=== PATIENT | male | born 1935 | race Caucasian/White ===

== ENCOUNTER → 2017-04-25 | Outpatient (CLI) | payer OTHER | LOC: FIMAGING 10:33 | PROVIDERS: ATTEND Physician Assistant | DX: M51.36 Other intervertebral disc degeneration, lumbar region (principal); M41.9 Scoliosis, unspecified ==

== ENCOUNTER 2017-06-12 20:36 | Emergency (ER) | payer OTHER ==
[2017-06-12] MEDS ORDERED: fentaNYL 100 MCG/2 ML INJ IVP ONE ×2 (21:24→21:44)
[2017-06-12 21:44] LABS: % IMMATURE GRANULYOCYTES 0.8 % (0.0-1.1); ABSOLUTE IMMATURE GRANULOCYTES 0.06 10^3/uL (0.00-0.10); ADD DIFF? NO; ADD MORPH? NO; ADD SCAN? NO; ATYPICAL LYMPHOCYTE FLAG 10 (0-99); FRAGMENT RBC FLAG 0 (0-99); HEMATOCRIT 36.7 % (40.0-51.0); HEMOGLOBIN 11.8 g/dL (13.7-17.5); LEFT SHIFT FLG 0 (0-99); LIPEMIA HEMOLYSIS FLAG 80 (0-99); MEAN CELL HEMOGLOBIN 29.6 pg (27.9-34.1); MEAN CELL HEMOGLOBIN CONCENTR. 32.2 g/dL (32.4-36.7); MEAN PLATELET VOLUME 9.9 fL (8.7-11.7); PLATELET CLUMPS FLAG 0 (0-99); PLATELET COUNT 202 10^3/uL (150-400); RED BLOOD CELL COUNT 3.99 10^6/uL (4.40-6.38); RED CELL DISTRIBUTION WIDTH 14.5 % (11.5-15.2)
[2017-06-12 22:03] LABS: ANION GAP 9 mEq/L (8-16); CALCIUM 9.4 mg/dL (8.5-10.4); CARBON DIOXIDE 29 mEq/l (22-31); CHLORIDE 100 mEq/L (97-110); CREATININE 1.4 mg/dL (0.7-1.3); GLOMERULAR FILTRATION RATE 49; GLUCOSE 85 mg/dL (70-100); POTASSIUM 4.3 mEq/L (3.5-5.2); SODIUM 138 mEq/L (134-144)
--- NOTE | 2017-06-13 01:37 | EDPHY ---
H & P Stated Complaint: sudden onset of right LQ pain into groin Time Seen by Provider: 06/12/17 21:19 HPI/ROS: Chief complaint: Right groin pain History of present illness: This is an 81-year-old male who presents to the emergency department for evaluation of right groin pain. Reports the onset of pain this afternoon. Pain has been persistent. He denies precipitating factors. He denies alleviating factors. He denies other associated signs or symptoms including no fevers or chills, no nausea, vomiting or diarrhea, no urinary symptoms, no pain in his testicle. Patient has been told he has an inguinal hernia previously and is concerned this is the cause of the pain. Review of systems: A 10 point review of systems was obtained and other than described above was negative - Personal History Current Tetanus Diphtheria and Acellular Pertussis (TDAP): Unsure - Medical/Surgical History Hx Asthma: Yes Hx Chronic Respiratory Disease: Yes Hx Diabetes: No Hx Cardiac Disease: No Hx Renal Disease: No Hx Cirrhosis: No Hx Alcoholism: No Hx HIV/AIDS: No Hx Splenectomy or Spleen Trauma: No Other PMH: appendectomy, tonsil adnoidectomy,. copd, sciatic nerve pain, ulcerated scrotum, dementia - Social History Smoking Status: Former smoker - Physical Exam Exam: General Appearance: Alert, nontoxic. Eyes: Pupils equal and round no pallor or injection. ENT, Mouth: Mucous membranes moist. Respiratory: There are no retractions, lungs are clear to auscultation. Cardiovascular: Regular rate and rhythm. Gastrointestinal: Abdomen is soft and non tender, no masses, bowel sounds normal. Genitourinary: No urethral discharge. Shaft of the penis unremarkable. Sodium unremarkable. Single testicle noted as patient reports having the other 1 surgically removed. The testicle and surrounding cord structures are nontender non edematous. Neurological: Alert and oriented x4. Strength and sensation intact and symmetrical. Skin: Warm and dry, no rashes. Musculoskeletal: Neck is supple non tender. Extremities are symmetrical, full range of motion. Psychiatric: Patient is oriented X 3, there is no agitation. Constitutional: Initial Vital Signs Temperature (C) 36.7 C 06/12/17 20:43 Heart Rate 87 06/12/17 20:43 Respiratory Rate 22 H 06/12/17 20:43 Blood Pressure 120/73 06/12/17 20:43 O2 Sat (%) 92 06/12/17 20:43 O2 Delivery Mode Nasal Cannula O2 (L/minute) 3 Allergies/Adverse Reactions: lorazepam [From Ativan] Allergy (Mild, Verified 08/16/12 16:39) confusion, restless leg Home Medications: Medication Instructions Recorded Acetaminophen [Tylenol 325mg (*)] 325 mg PO Q6 PRN 05/19/17 Albuterol [Proventil Inhaler HFA 1 - 2 puffs IH Q4H PRN 05/19/17 (*)] Calcium Carbonate [Oyster Shell 1,000 mg PO HS 05/19/17 Calcium 500 mg (*)] Cyanocobalamin [Vitamin B12 (*)] 1,000 mcg PO DAILY 05/19/17 Donepezil HCl [Aricept 5 MG (*)] 5 mg PO HS 05/19/17 Fluticasone Nasal [Flonase Nasal 1 sprays NASAL DAILY PRN 05/19/17 [place] (RX)] Fluticasone/Salmeter 500/50Mcg 1 puffs IH BID 05/19/17 [Advair 500/50 (*)] Gabapentin [Neurontin 300 MG (*)] 300 mg PO BID 05/19/17 Herbals/Supplements -Info Only 1 ea PO DAILY 05/19/17 Ipratropium 0.03% Nasal [Atrovent 2 sprays EACHNARE TID PRN 05/19/17 0.03% Nasal (*)] Lansoprazole [Lansoprazole 15 mg] 15 mg PO DAILY 05/19/17 Levalbuterol 1.25 mg [Xopenex 1.25 mg IH TID 05/19/17 1.25MG Neb (*)] Loratadine [Claritin] 10 mg PO DAILY PRN 05/19/17 Memantine HCl [Namenda 10 mg] 10 mg PO BID 05/19/17 Multivitamins [Multivitamin (*)] 1 each PO HS 05/19/17 Pramipexole Di-HCl [Mirapex 1 mg 1 mg PO HS 05/19/17 (*)] Simvastatin [Zocor] 20 mg PO HS 05/19/17 Sodium Cl Nasal Gel [[place] Saline 1 reg TP HS 05/19/17 Nasal Gel] Tamsulosin HCl [Flomax 0.4 MG (*)] 0.4 mg PO HS 05/19/17 Theophylline Anhydrous 400 mg PO DAILY@12 05/19/17 [Theophylline] Tiotropium Inhaler [Spiriva 1 inh IH DAILY 05/19/17 Inhaler] celeCOXIB [CeleBREX] 100 mg PO BID 05/19/17 predniSONE 12.5 mg PO DAILY 05/19/17 Medical Decision Making - Diagnostics Imaging: Discussed imaging studies w/ manufacture specialist Radiologist ED Course/Re-evaluation: Patient discussed with my secondary supervising physician Dr. Aryan Lopez. Patient presents to the emergency department for groin pain. He is nontoxic. Physical exam is benign. Blood studies unremarkable. Urinalysis unremarkable. CT scan does show a fat containing hernia which could be the cause of his symptoms. I have offered ultrasound of his testicle to ensure this is not the cause of his problem and he has declined. The patient's pain is controlled. He is requesting to be discharged home. Home care is discussed. He is asked to follow up with surgery for recheck. Strict return precautions are given. Patient voiced understanding and agreement with plan. Differential Diagnosis: Included but not limited to hernia, incarcerated hernia, strangulated hernia, appendicitis, colitis, mesenteric or bowel ischemia, testicular torsion, testicular infection or urinary tract infection, nephrolithiasis - Data Points Laboratory Results: Laboratory Results 06/12/17 21:32 06/12/17 21:32 Medications Given: Discontinued Medications Hydrocodone Bitart/Acetaminophen ([place] 5/325mg Prepack#6) 1 btl TAKEHOME EDNOW ONE Stop: 06/13/17 01:51 Last Admin: 06/13/17 01:53 Dose: 1 btl Fentanyl (Sublimaze) 75 mcg IVP EDNOW ONE Stop: 06/12/17 21:25 Last Admin: 06/12/17 21:31 Dose: 75 mcg Fentanyl (Sublimaze) 100 mcg IVP EDNOW ONE Stop: 06/12/17 21:45 Last Admin: 06/12/17 21:48 Dose: 100 mcg Departure - Departure Disposition: Home, Routine, Self-Care Clinical Impression: Hernia Condition: Good Instructions: Hydrocodone/Acetaminophen (By mouth), Inguinal Hernia (ED) Additional Instructions: Follow-up with General surgery for further evaluation and care If symptoms worsen or new symptoms develop return to the emergency room for recheck Referrals: Robbie Marie MD [Primary Care Provider] - As per Instructions Ag Antonio MD [Medical Doctor] - As per Instructions
[2017-06-13] MEDS ORDERED: HYDROCOD/APAP 5/325 PREPACK#6 BTL TAKEHOME ONE (01:50)
[2017-06-13 02:03] VITALS: BP 141/80; PULSE 63; RESP 14; TEMP 97.7; O2SAT 98
[2017-06-13 02:13] LABS: COLOR YELLOW; LEUKOCYTE ESTERASE,URINE NEGATIVE (NEGATIVE); NITRITE,URINE NEGATIVE (NEGATIVE)
[2017-06-13 02:14] LABS: MUCUS TRACE /lpf (NONE-1+)
== END 2017-06-13 01:57 | disposition home or self-care (01) ==
DX: K46.9 Unspecified abdominal hernia without obstruction or gangrene (principal); J45.909 Unspecified asthma, uncomplicated; Z87.891 Personal history of nicotine dependence
CPT/HCPCS: 74176; 96374; 99285; J3010

== ENCOUNTER 2017-06-14 10:41 | Inpatient (IN) | payer OTHER ==
[2017-06-14] MEDS ORDERED: ACETAMINOPHEN 325 MG TAB PO ONE (11:22)
[2017-06-14] MEDS ORDERED: HYDROmorphONE/DILAUDID 1 MG/ML INJ IVP ONE ×2 (11:22→12:43)
--- NOTE | 2017-06-14 11:24 | EDPHY ---
H & P Time Seen by Provider: 06/14/17 11:08 HPI/ROS: CHIEF COMPLAINT: Back and right leg pain HISTORY OF PRESENT ILLNESS: Patient is a history of sciatica and is scheduled to have surgery with Dr. Mau Phillips on July 01. He was here 2 days ago for right groin pain thought to be related to a fat hernia. He presents today with symptoms which are severe since yesterday evening. Pain is located in his back and radiates down his right leg. It is not associated with incontinence or weakness or numbness in extremities. He is virtually unable to walk and is very unsteady when he gets on his feet. Family feels he is definitely not safe on walking because of his pain. No recent injury. REVIEW OF SYSTEMS: Eye: no change in vision ENT: no sore throat Cardiac: no chest pain or syncope Pulmonary: no cough or SOB Abdomen: no vomiting, diarrhea, abdominal pain Musculoskeletal: HPI Skin: no rash Neuro: no headache Constitutional: no fever : no urinary symptoms A comprehensive 10 point review of systems is otherwise negative aside from elements mentioned in the history of present illness. PAST MEDICAL HISTORY: Includes oxygen-dependent COPD, sciatica, appendectomy and tonsillectomy Social history: Here with daughter and . Temperature 36.8degrees General Appearance: Alert and conversant, cooperative. Eyes: No scleral icterus. ENT, Mouth: Normal mucous membranes. Respiratory: Normal respiratory effort, breath sounds equal, lungs are clear to auscultation. Cardiovascular: Regular rate and rhythm. Gastrointestinal: Abdomen is soft and non tender. Neurological: Alert and oriented x3. Normally conversant. Face symmetric, normal movement and sensation in all extremities. Straight leg raising is negative bilaterally. He does not have clonus. Patellar reflexes are present bilaterally. Skin: Warm and dry, no rashes. Musculoskeletal: No peripheral edema and no joint swelling. Psychiatric: Not agitated. Emergency Department course/MDM: Dilaudid 0.5 and Tylenol 650 orally. 1123: Dr. Phillips from neurosurgery, will consult. In ED at 1140. 1126: [facility]ary for [facility]. Patient will need admission for pain control as he is unstable on his feet and very high fall risk. Plan per Dr. Phillips is repeat MRI, possible surgical intervention before discharge. Smoking Status: Former smoker Constitutional: Initial Vital Signs Heart Rate 95 06/14/17 10:44 Respiratory Rate 22 H 06/14/17 10:44 Blood Pressure 152/80 H 06/14/17 10:44 O2 Sat (%) 93 06/14/17 10:44 O2 Delivery Mode Room Air Allergies/Adverse Reactions: lorazepam [From Ativan] Allergy (Mild, Verified 06/14/17 10:43) confusion, restless leg Home Medications: Medication Instructions Recorded Acetaminophen [Tylenol 325mg (*)] 325 mg PO Q6 PRN 05/19/17 Albuterol [Proventil Inhaler HFA 1 - 2 puffs IH Q4H PRN 05/19/17 (*)] Calcium Carbonate [Oyster Shell 1,000 mg PO HS 05/19/17 Calcium 500 mg (*)] Cyanocobalamin [Vitamin B12 (*)] 1,000 mcg PO DAILY 05/19/17 Donepezil HCl [Aricept 5 MG (*)] 5 mg PO HS 05/19/17 Fluticasone Nasal [Flonase Nasal 1 sprays NASAL DAILY PRN 05/19/17 [place] (RX)] Fluticasone/Salmeter 500/50Mcg 1 puffs IH BID 05/19/17 [Advair 500/50 (*)] Gabapentin [Neurontin 300 MG (*)] 300 mg PO BID 05/19/17 Herbals/Supplements -Info Only 1 ea PO DAILY 05/19/17 Ipratropium 0.03% Nasal [Atrovent 2 sprays EACHNARE TID PRN 05/19/17 0.03% Nasal (*)] Lansoprazole [Lansoprazole 15 mg] 15 mg PO DAILY 05/19/17 Levalbuterol 1.25 mg [Xopenex 1.25 mg IH TID 05/19/17 1.25MG Neb (*)] Loratadine [Claritin] 10 mg PO DAILY PRN 05/19/17 Memantine HCl [Namenda 10 mg] 10 mg PO BID 05/19/17 Multivitamins [Multivitamin (*)] 1 each PO HS 05/19/17 Pramipexole Di-HCl [Mirapex 1 mg 1 mg PO HS 05/19/17 (*)] Simvastatin [Zocor] 20 mg PO HS 05/19/17 Sodium Cl Nasal Gel [[place] Saline 1 reg TP HS 05/19/17 Nasal Gel] Tamsulosin HCl [Flomax 0.4 MG (*)] 0.4 mg PO HS 05/19/17 Theophylline Anhydrous 400 mg PO DAILY@12 05/19/17 [Theophylline] Tiotropium Inhaler [Spiriva 1 inh IH DAILY 05/19/17 Inhaler] celeCOXIB [CeleBREX] 100 mg PO BID 05/19/17 predniSONE 12.5 mg PO DAILY 05/19/17 Hydrocodone/Acetaminophen [[place] 1 each PO Q4 06/14/17 5/325 (*)] Medical Decision Making Differential Diagnosis: Differential for back pain considered including but not limited to spinal stenosis, sciatica, epidural abscess, vertebral compression fracture. - Data Points Laboratory Results: Laboratory Results 06/14/17 11:14 06/14/17 11:14 06/14/17 06/14/17 11:14 11:14 WBC 9.05 10^3/uL 10^3/uL (3.80-9.50) RBC 4.51 10^6/uL 10^6/uL (4.40-6.38) Hgb 13.1 g/dL L g/dL (13.7-17.5) Hct 42.1 % % (40.0-51.0) MCV 93.3 fL fL (81.5-99.8) MCH 29.0 pg pg (27.9-34.1) MCHC 31.1 g/dL L g/dL (32.4-36.7) RDW 14.6 % % (11.5-15.2) Plt Count 217 10^3/uL 10^3/uL (150-400) MPV 10.1 fL fL (8.7-11.7) Neut % (Auto) 70.7 % % (39.3-74.2) Lymph % (Auto) 13.4 % L % (15.0-45.0) [place] % (Auto) 9.5 % % (4.5-13.0) Eos % (Auto) 5.0 % % (0.6-7.6) Baso % (Auto) 0.6 % % (0.3-1.7) Nucleat RBC Rel Count 0.0 % % (0.0-0.2) Absolute Neuts (auto) 6.41 10^3/uL 10^3/uL (1.70-6.50) Absolute Lymphs (auto) 1.21 10^3/uL 10^3/uL (1.00-3.00) Absolute Monos (auto) 0.86 10^3/uL H 10^3/uL (0.30-0.80) Absolute Eos (auto) 0.45 10^3/uL H 10^3/uL (0.03-0.40) Absolute Basos (auto) 0.05 10^3/uL 10^3/uL (0.02-0.10) Absolute Nucleated RBC 0.00 10^3/uL 10^3/uL (0-0.01) Immature Gran % 0.8 % % (0.0-1.1) Immature Gran # 0.07 10^3/uL 10^3/uL (0.00-0.10) Sodium 141 mEq/L mEq/L (134-144) Potassium 4.1 mEq/L mEq/L (3.5-5.2) Chloride 103 mEq/L mEq/L (97-110) Carbon Dioxide 29 mEq/l mEq/l (22-31) Anion Gap 9 mEq/L mEq/L (8-16) BUN 20 mg/dL mg/dL (7-23) Creatinine 1.1 mg/dL mg/dL (0.7-1.3) Estimated GFR > 60 Glucose 105 mg/dL H mg/dL (70-100) Calcium 9.3 mg/dL mg/dL (8.5-10.4) Medications Given: Discontinued Medications Acetaminophen (Tylenol) 650 mg PO EDNOW ONE Stop: 06/14/17 11:23 Last Admin: 06/14/17 11:26 Dose: 650 mg Hydromorphone HCl (Dilaudid) 0.5 mg IVP EDNOW ONE Stop: 06/14/17 11:23 Last Admin: 06/14/17 11:31 Dose: 0.5 mg Departure - Departure Disposition: [facility] Clinical Impression: Sciatica Qualifiers: Laterality: right Qualified Code(s): M54.31 - Sciatica, right side Condition: Good
[2017-06-14 11:28] LABS: % IMMATURE GRANULYOCYTES 0.8 % (0.0-1.1); ABSOLUTE IMMATURE GRANULOCYTES 0.07 10^3/uL (0.00-0.10); ADD DIFF? NO; ADD MORPH? NO; ADD SCAN? NO; ATYPICAL LYMPHOCYTE FLAG 0 (0-99); FRAGMENT RBC FLAG 0 (0-99); HEMATOCRIT 42.1 % (40.0-51.0); HEMOGLOBIN 13.1 g/dL (13.7-17.5); LEFT SHIFT FLG 0 (0-99); LIPEMIA HEMOLYSIS FLAG 80 (0-99); MEAN CELL HEMOGLOBIN CONCENTR. 31.1 g/dL (32.4-36.7); MEAN CELL VOLUME 93.3 fL (81.5-99.8); MEAN PLATELET VOLUME 10.1 fL (8.7-11.7); PLATELET CLUMPS FLAG 10 (0-99); PLATELET COUNT 217 10^3/uL (150-400); RED BLOOD CELL COUNT 4.51 10^6/uL (4.40-6.38); RED CELL DISTRIBUTION WIDTH 14.6 % (11.5-15.2)
[2017-06-14 11:35] LABS: ANION GAP 9 mEq/L (8-16); CALCIUM 9.3 mg/dL (8.5-10.4); CARBON DIOXIDE 29 mEq/l (22-31); CHLORIDE 103 mEq/L (97-110); CREATININE 1.1 mg/dL (0.7-1.3); GLOMERULAR FILTRATION RATE > 60; GLUCOSE 105 mg/dL (70-100); POTASSIUM 4.1 mEq/L (3.5-5.2); SODIUM 141 mEq/L (134-144)
--- NOTE | 2017-06-14 11:53 | SOAPPROG ---
Downtime Inpatient MD Late Entry SOAP Note: Patient with right sciatic type pain severe. patient seen and staffed by neurosurgery in the ED. no signficant weakness. Suggest: Admission for pain control MRI to reassess lumbar spine (pain changed dramatically since his 04/25 MRI Medical tune up for lumbar surgery as needed Surgery Scheduling: We are likely looking at Thursday or Thursday for this if the medical service agrees to this time frame and can be assessed medically prior to our proceeding.
--- NOTE | 2017-06-14 13:04 | GCON ---
[f rep st] CONSULTATION NEUROLOGY CONSULTATION DATE OF CONSULTATION: 06/14/2017 [facility] REASON FOR CONSULTATION: Right sciatica. HISTORY OF PRESENT ILLNESS: The patient is an 81-year-old, who had seen me in the office. He has oxygen-dependent COPD, and was scheduled for a lumbar decompressive surgery, I believe at the L4-5 level for a right-sided disc herniation at L4-5. Although he has multilevel lumbar spondylosis and stenosis throughout the lumbar spine. We had scheduled him for a more simple straightforward surgery on July 01 of this year. He came to the emergency department on Thursday with severe right inguinal pain and it was thought to be related to a fatty right inguinal hernia that did not require surgery. He was discharged home but he had a change in his pain last night with severe pain in the low back, now radiating down the right leg, without any associated incontinence or weakness. He was no longer able to walk. The family felt he was unsafe at home and brought him to the emergency department. Neurosurgery was consulted. Indeed he was complaining of right leg pain predominantly today , and this is new and different than the pain that he had following the MRI. He has had right sciatic type pain but this is much worse. PAST MEDICAL HISTORY: Includes COPD, sciatica. PAST SURGICAL HISTORY: Includes appendectomy and tonsillectomy. SOCIAL HISTORY: He came with his daughter and his , and he currently does not use tobacco or other illicit drugs. PHYSICAL EXAM: His vital signs are stable. He is afebrile. He has good strength in the right tibialis anterior and plantar flexors, maybe trace weakness in the right extensor hallucis longus, but it is minimal. He has a positive straight leg raise on the right. ASSESSMENT: The patient is an elderly gentleman with acute right sciatica that had evolved since the time of his MRI in April. I do think that he needs admission to the hospital for pain control and medical stabilization, optimization and plans for lumbar decompressive surgery. We would suggest an MRI, and this could be done later today. There is no urgency to this. We will continue to follow along and will make arrangements to put him on the surgery schedule likely this next week, once we have ensured that his medical status is acceptable to proceed with surgery. /[id number]/MODL MRI shows really terrible spinal stenosis at multiple levels, but the most likely source of his grief is at L45 where there is a persistent right HNP and severe stenosis. It may be slightly worse than MRI in April but not much. There is severe stenosis at L34 as well. We will make arrangements to proceed with surgery this hospital admission if approved by the Medicine service. YANET
[2017-06-14] MEDS ORDERED: FLUTICASONE NASAL 120 SPRAYS/16 GM MDI EACHNARE PRN (13:23)
[2017-06-14] MEDS ORDERED: ALBUTEROL 60 PUFFS/8 GM MDI IH PRN ×2 (13:23→13:53)
[2017-06-14] MEDS ORDERED: IPRATROPIUM 0.03% NASAL SPRAY EACHNARE PRN (13:23)
[2017-06-14] MEDS ORDERED: NON-FORMULARY NEW DRUG (Loratadine [Claritin] 10 MG) PO PRN (13:23)
[2017-06-14] MEDS ORDERED: oxyCODONE IR 5 MG TAB PO PRN (13:25)
[2017-06-14] MEDS ORDERED: ACETAMINOPHEN 500 MG TAB PO PRN (13:25)
[2017-06-14] MEDS ORDERED: CETIRIZINE 10 MG TAB PO PRN (13:36)
[2017-06-14] MEDS ORDERED: THEOPHYLLINE 200 MG PO SCH (13:45)
[2017-06-14] MEDS ORDERED: [UNRECOGNIZED DRUG - OTHER] PO SCH (13:45)
--- NOTE | 2017-06-14 14:15 | GHP ---
[f rep st] HISTORY AND PHYSICAL DATE OF ADMISSION: 06/14/2017 CHIEF COMPLAINT: Back pain. HISTORY OF PRESENT ILLNESS: This is an 81-year-old man with known low lumbar spine disk disease, wh o presents with worsening back pain. He has been followed by Dr. Phillips as an outpatient, has plans to do a low back decompression on the of this month. He presented to the emergency department 2 days ago with worsening pain, which at that point was thought to be due to his hernia. The pain got much worse last night; thus, he re-presented today. Pain is described in his low back, radiatin g down his right leg. He has occasionally been incontinent, but has no urinary retention, no loss o f his bowel. He has numbness in bilateral feet, which has been persistent. He does not have any si gnificant weakness. He has oxygen-dependent COPD which significantly limits his activity. He is able to walk up a fligh t of stairs. He is probably not able to walk around a block, given his leg pain, as well as shortne ss of breath. He has pain everywhere. It does not sound like he has any reproducible angina, howev er. He has never seen a truck guard. He had a stress test about 20 years ago, which he was told w as negative at that time. PAST MEDICAL/SURGICAL HISTORY: 1. Oxygen-dependent COPD, for which he sees Dr. Zurita. 2. Sciatica. 3. Appendectomy. 4. Tonsillectomy. MEDICATIONS: Please see medication reconciliation. ALLERGIES: Ativan. FAMILY HISTORY: Reviewed and noncontributory. SOCIAL HISTORY: He is . He quit smoking. REVIEW OF SYSTEMS: A 10-point review of systems was conducted and was negative, except per HPI. PHYSICAL EXAM: VITAL SIGNS: Blood pressure is 126/66, heart rate 62, respiratory rate 18, saturati ng 95% on 3 L, temperature is 36.7. GENERAL: The patient is a pleasant man, who appears uncomforta ble, moving around in some distress. HEENT: Normocephalic, atraumatic. CARDIOVASCULAR: Regular r ate and rhythm. No murmurs, rubs, or gallops. PULMONARY: Lungs clear to auscultation bilaterally. ABDOMEN: Soft, nontender, nondistended. SKIN: No rash. : No Cardenas. NEUROLOGIC: Alert and oriented x3. His strength is mildly decreased in the left foot dorsiflexion, normal in his right le g. He does not have any significant decrease in sensation. He is not tender to palpation over his lumbar spine. PSYCHIATRIC: Exam shows him to be anxious. LABS: Hemoglobin is 13.1, glucose is 105, creatinine is 1.1. DATA: 1. I reviewed his chart. 2. I reviewed his last MRI which shows multilevel disk disease. IMPRESSION/PLAN: An 81-year-old man with lumbar disease who presents with worsening back pain. 1. Back pain: Agree with Dr. Phillips. Repeating an MRI is indicated given his worsening pain. I h ave ordered this routine. Unless we can get his pain controlled here, he will likely need surgery o n this admission. 2. Pain control: Will provide him with IV as well as oral options. Dilaudid has not been working well for him in the ED. I will give him some morphine. We will also provide scheduled Tylenol and oxycodone. I think NSAIDs would be somewhat high risk in him, given his creatinine 1.1 and his age. I have given him Robaxin for muscle spasms as well. 3. Preoperative evaluation: Does not seem like he can attain 4 METs. He does have oxygen-dependen t chronic obstructive pulmonary disease. He will be at least moderate risk for surgery. I have ord ered an EKG as well as an echocardiogram to evaluate his cardiovascular status. Last EKG was in 201 3, which was relatively unremarkable. 4. Oxygen-dependent chronic obstructive pulmonary disease: It seems stable. I do not appreciate a ny evidence of exacerbation at this point. We will continue his inhalers and oxygen supplementation . He sees Dr. Zurita. 5. Code status: He would like to be do not resuscitate. We talked specifically about what that me ans. 6. Venous thromboembolism risk is moderate, I will put him on Lovenox which will need to be held pr ior to surgery. /[id number]/MODL
[2017-06-14] MEDS: METHOCARBAMOL 750 MG TAB PO SCH ×2 (14:40→21:34)
[2017-06-14] MEDS: HYDROCODONE/APAP 5/325 TAB PO SCH ×3 (14:41→21:34)
--- NOTE | 2017-06-14 15:34 | ECHO ---
[id number] + + [address] : : [place] [address] : : [phone] + + Adult Echocardiographic Report + ------+ :Name: CANDELARIA CHRISTOPEHR DStudy Date: 06/14/2017 02:07 PM : : Hospital Admission Number: [id number] Locatio n: 383: :: 1935 Gender: Male Height: 69 in : :Age: 81 yrs Race: WH Weight: 152 lb : :Reason For Study: Pre-op : : BSA: 1.8 meters 2 : :History: SOB, COPB : + ------+ MMode/2D Measurements \T\ Calculations IVSd: 1.1 cm LVIDd: 4.4 cm FS: 36.5 % LVOT diam: 2.0 cm LVPWd: 1.3 cm LVIDs: 2.8 cm EDV(Teich): 85.6 ml LVOT area: 3.0 cm2 ESV(Teich): 28.6 ml EF(Teich): 66.6 % Normal Measurement Values: + + :LVIDd (3.5-5.7cm) IVSd (0.6-1.1cm) LVPWd (0.6-1.1cm) Aortic Root (2.0-3.7cm)Left Atrium (1.5-4.0cm): :LV Vol(d) (76-115ml) LV Vol(s) (29-48ml) Ejec Fraction (50-65%)PV Chuck (0.6- 1.2m/s) TV Chuck (0.4-1.0m/s) : :MV E Chuck (0.8-1.0m/s)MV A Chuck (0.3-1.0m/s)LVOT Chuck (0.7-1.2m/s) Asc Ao Chuck ( 0.9-1.8m/s) : + + Doppler Measurements \T\ Calculations MV E max chuck: MV V2 max: Ao mean PG: LV V1 mean P.5 cm/sec 104.4 cm/sec 10.5 mmHg 1.8 mmHg MV A max chuck: MV max PG: Ao V2 mean: LV V1 mean: 66.1 cm/sec 4.4 mmHg 153.1 cm/sec 64.0 cm/sec MV E/A: 1.2 MV V2 mean: Ao V2 VTI: 44.2 cm LV V1 VTI: 20.3 cm MV dec time: 58.1 cm/sec XAVIER(I,D): 1.4 cm2 0.28 sec MV mean P.6 mmHg MV V2 VTI: 33.3 cm MVA(VTI): 1.8 cm2 SV(LVOT): 61.3 ml PA V2 max: 107.6 cm/sec PA max P.6 mmHg Left Ventricle The left ventricle is normal in size and function. There is mild concentric left ventricular hypertrophy. Left ventricular systolic function is normal. Regional wall motion abnormalities cannot be excluded due to limited visualization. Right Ventricle The right ventricle is grossly normal size. The right ventricular systolic function is borderline reduced. Atria The left atrial size is normal. Right atrial size is normal. The interatrial septum is intact with no evidence for an atrial septal defect. Mitral Valve The mitral valve is normal in structure and function. There is mild mitral annular calcification. There is no mitral valve stenosis. There is trace to mild mitral regurgitation. Tricuspid Valve The tricuspid valve is normal in structure and function. There is no tricuspid stenosis. There is trace tricuspid regurgitation. Aortic Valve The aortic valve is not well visualized. Mild Aortic Valve Calcification. There is no aortic stenosis. There is no aortic insufficiency. Pulmonic Valve The pulmonic valve is not well visualized. There is no pulmonic valvular regurgitation. Great Vessels The aortic root is normal size. Pericardium/Pleural There is no pericardial effusion. Conclusion A complete two-dimensional transthoracic echocardiogram was performed (2D, M-mode, Doppler and color flow Doppler). The study was technically difficult. Patient unable to lay still for duration of exam due to extreme back and nerve pain. The left ventricle is normal in size and function. There is mild concentric left ventricular hypertrophy. Left ventricular systolic function is normal. The right ventricular systolic function is borderline reduced. There is trace to mild mitral regurgitation. There is trace tricuspid regurgitation. Final Reading Physician: Zeke Toro signed on 06/14/2017 03:32 PM Ordering Physician: Yoni Moreno Performed By: Connie Perez
[2017-06-14] MEDS ORDERED: LEVALBUTEROL 1.25 MG/3 ML DEYVIAL IH SCH (16:00)
--- NOTE | 2017-06-14 18:05 | CPEKG ---
Heart Rate: 65 RR Interval: 923 P-R Interval: 140 QRSD Interval: 98 QT Interval: 400 QTC Interval: 416 P [place]: 83 QRS [place]: 212 T Wave [place]: 73 EKG Severity - ABNORMAL ECG - EKG Impression: SINUS RHYTHM EKG Impression: ATRIAL PREMATURE COMPLEX EKG Impression: PROBABLE RIGHT VENTRICULAR HYPERTROPHY Electronically Signed By: Rivas Cao 14-Jun-2017 18:45:37
[2017-06-14] MEDS ORDERED: NON-FORMULARY NEW DRUG (Simvastatin [Zocor] 20 MG) PO SCH (21:00)
[2017-06-14] MEDS ORDERED: NON-FORMULARY NEW DRUG (Memantine Hcl [Namenda 10 Mg] 10 MG) PO SCH (21:00)
[2017-06-14] MEDS: GABAPENTIN 300 MG CAP PO SCH (21:33)
[2017-06-14] MEDS: TAMSULOSIN HCL 0.4 MG CAP PO SCH (21:33)
[2017-06-14] MEDS: CALCIUM CARBONATE 500 MG TAB PO SCH (21:34)
[2017-06-14] MEDS: PRAMIPEXOLE 1 MG TAB PO SCH (21:36)
[2017-06-14] MEDS: DONEPEZIL HCL 5 MG TAB PO SCH (21:36)
[2017-06-14] MEDS: FLUTICASONE/SALMETER 500/50MCG DISKUS IH SCH (21:48)
[2017-06-14] MEDS: LEVALBUTEROL 1.25 MG/3 ML DEYVIAL IH SCH (21:51)
[2017-06-14] MEDS: SODIUM CL NASAL GEL 14.1 GM TUBE TP SCH (22:05)
[2017-06-15 01:02] LABS: COLOR PALE YELLOW; LEUKOCYTE ESTERASE,URINE NEGATIVE (NEGATIVE); NITRITE,URINE NEGATIVE (NEGATIVE)
[2017-06-15] MEDS: HYDROCODONE/APAP 5/325 TAB PO SCH ×6 (01:58→20:56)
[2017-06-15 06:17] LABS: % IMMATURE GRANULYOCYTES 0.7 % (0.0-1.1); ABSOLUTE IMMATURE GRANULOCYTES 0.08 10^3/uL (0.00-0.10); ADD DIFF? NO; ADD MORPH? NO; ADD SCAN? NO; ATYPICAL LYMPHOCYTE FLAG 0 (0-99); FRAGMENT RBC FLAG 0 (0-99); HEMATOCRIT 40.9 % (40.0-51.0); HEMOGLOBIN 12.8 g/dL (13.7-17.5); LEFT SHIFT FLG 0 (0-99); LIPEMIA HEMOLYSIS FLAG 80 (0-99); MEAN CELL HEMOGLOBIN 29.3 pg (27.9-34.1); MEAN CELL HEMOGLOBIN CONCENTR. 31.3 g/dL (32.4-36.7); MEAN CELL VOLUME 93.6 fL (81.5-99.8); PLATELET CLUMPS FLAG 0 (0-99); PLATELET COUNT 195 10^3/uL (150-400); RED BLOOD CELL COUNT 4.37 10^6/uL (4.40-6.38); RED CELL DISTRIBUTION WIDTH 14.4 % (11.5-15.2)
[2017-06-15 06:36] LABS: ALANINE AMINOTRANSFERASE 38 IU/L (21-72); ALBUMIN 3.3 g/dL (3.5-5.0); ALKALINE PHOSPHATASE 59 IU/L (38-126); ANION GAP 9 mEq/L (8-16); ASPARTATE AMINOTRANSFERASE 25 IU/L (17-59); BILIRUBIN,TOTAL 0.6 mg/dL (0.1-1.4); CALCIUM 9.7 mg/dL (8.5-10.4); CARBON DIOXIDE 31 mEq/l (22-31); CHLORIDE 99 mEq/L (97-110); CREATININE 1.1 mg/dL (0.7-1.3); GLOMERULAR FILTRATION RATE > 60; GLUCOSE 87 mg/dL (70-100); POTASSIUM 4.4 mEq/L (3.5-5.2); SODIUM 139 mEq/L (134-144); TOTAL PROTEIN 5.4 g/dL (6.3-8.2)
[2017-06-15] MEDS ORDERED: NON-FORMULARY NEW DRUG (Lansoprazole [Lansoprazole 15 Mg] 15 MG) PO SCH (09:00)
[2017-06-15] MEDS ORDERED: ENOXAPARIN 40 MG/0.4 ML SYR SC SCH (09:00)
[2017-06-15] MEDS: ONDANSETRON DISINTEGRATING 4 MG TAB PO PRN ×2 (09:05→14:10)
[2017-06-15] MEDS: FLUTICASONE/SALMETER 500/50MCG DISKUS IH SCH ×2 (09:34→21:38)
[2017-06-15] MEDS: LEVALBUTEROL 1.25 MG/3 ML DEYVIAL IH SCH ×3 (09:34→21:37)
[2017-06-15] MEDS: TIOTROPIUM INHALER 18 MCG/DOSE 5 DOSE/MDI IH SCH (09:35)
[2017-06-15] MEDS ORDERED: morphINE PCA 30 MG/30 ML PCA IV PRN (09:56)
[2017-06-15] MEDS ORDERED: NALOXONE HCL 0.4 MG/ML INJ IVP PRN (09:56)
--- NOTE | 2017-06-15 09:58 | HOSPPROG ---
Hospitalist Progress Note Assessment/Plan: # uncontrolled pain, lumbar disk disease - needs inpatient surgery likely; Dr Jerome to take over for Dr Phillips tomorrow - start ASSURANCE SENIOR MANAGER INSURANCE (high risk, IV narcotics), cont other PO pain meds - medically cleared for surgery; moderate risk given persistent COPD/O2 requirement # urinary retention - likely d/t narcotics, less likely cauda equina - place marquez for now, cont outpatient flomax # COPD/chronic resp failure - at baseline - O2 and steroid dependent - cont inhalers, theophylline # chronic steroid use - should get stress dose steroids shahida-operatively # dementia - seems mild, on namenda and aricept; higher risk for post-op delirium # dispo - inpatient; needs greater than 2 midnights for uncontrolled pain likely needing surgery Subjective: pain still uncontrolled; needed straight cath last night Objective: Vital Signs Temp Pulse Resp BP Pulse Ox 36.4 C 88 16 119/68 92 06/15/17 07:48 06/15/17 07:48 06/15/17 07:48 06/15/17 07:48 06/15/17 07:48 Laboratory Results 06/15/17 06:00 06/15/17 06:00 06/14/17 06/15/17 06/16/17 05:59 05:59 05:59 Output Total 700 Balance -700 - Physical Exam Constitutional: no apparent distress, appears nourished Cardiovascular: regular rate and rhythym, no murmur, rub, or gallop, systolic murmur Respiratory: no respiratory distress, no rales or rhonchi, clear to auscultation , other (on NC) Gastrointestinal: normoactive bowel sounds, soft, non-tender abdomen, no palpable masses ICD10 Worksheet Patient Problems: Problems Problem Status Onset Sciatica Acute
[2017-06-15] MEDS ORDERED: LIDOCAINE 2% JELLY 20 ML (UROJECT) ONE (10:37)
--- NOTE | 2017-06-15 10:46 | SOAPPROG ---
ABIGAIL Progress Note Assessment/Plan: Assessment: I think laura daley does in fact need 2 surgeries now. a right L45 and a right L1/2 extraforaminal surgery. these can be done simultaneously and will be two different incisions. we have tentatively placed him on the schedule tmrw, but this is not final and certainly we want to give the medicine team time to accurately assess his perioperative cardiac and pulmonary risks. Plan: 06/15/17 10:44 Subjective: In the ER he was having alot of L5 pain. Now this morning it is mostly inguinal which is similar to his complaints on thursday. also urine retention. Objective: Vital Signs Temp Pulse Resp BP Pulse Ox 36.4 C 88 16 119/68 92 06/15/17 07:48 06/15/17 07:48 06/15/17 07:48 06/15/17 07:48 06/15/17 07:48 Laboratory Results 06/15/17 06:00 06/15/17 06:00 06/14/17 06/15/17 06/16/17 05:59 05:59 05:59 Output Total 700 Balance -700 maew ICD10 Worksheet Patient Problems: Problems Problem Status Onset Sciatica Acute
[2017-06-15] MEDS: predniSONE 5 MG TAB PO SCH (11:11)
[2017-06-15] MEDS: ATORVASTATIN CALCIUM 10 MG TAB PO SCH (11:14)
[2017-06-15] MEDS: METHOCARBAMOL 750 MG TAB PO SCH ×4 (11:14→22:13)
[2017-06-15] MEDS: MEMANTINE HCL 5 MG TAB PO SCH (11:16)
[2017-06-15] MEDS: PANTOPRAZOLE SODIUM 40 MG TAB PO SCH (11:17)
[2017-06-15] MEDS: GABAPENTIN 300 MG CAP PO SCH ×2 (11:18→20:26)
[2017-06-15] MEDS: THEOPHYLLINE 200 MG PO SCH ×2 (12:45→18:44)
[2017-06-15] MEDS: [UNRECOGNIZED DRUG - OTHER] PO SCH ×2 (12:45→18:44)
--- NOTE | 2017-06-15 15:27 | ASMTCMCOM ---
CM Note CM Note Notes: Spoke w/MD, pt in severe back pain and will need sx, on schedule for sx tomorrow. Pt lives w/ in home, dc needs unclear, ROWAN w/f. Date Signed: 06/15/2017 03:26 PM Electronically Signed By:Breonna Anders
--- NOTE | 2017-06-15 16:44 | ASMTCMCOM ---
CM Note CM Note Notes: RN came to w/ phone number to pt's daughter that called, . States can assist in getting pt hospital bed if needed, she is flying in tomorrow. Date Signed: 06/15/2017 04:44 PM Electronically Signed By:Breonna Anders
[2017-06-15] MEDS: ONDANSETRON 4 MG/2 ML VIAL IVP PRN ×2 (18:25→23:10)
[2017-06-15] MEDS: DONEPEZIL HCL 5 MG TAB PO SCH (20:26)
[2017-06-15] MEDS: PRAMIPEXOLE 1 MG TAB PO SCH (20:26)
[2017-06-15] MEDS: CALCIUM CARBONATE 500 MG TAB PO SCH (20:26)
[2017-06-15] MEDS: TAMSULOSIN HCL 0.4 MG CAP PO SCH (20:26)
[2017-06-15] MEDS: SODIUM CL NASAL GEL 14.1 GM TUBE TP SCH (20:57)
[2017-06-16] MEDS: HYDROCODONE/APAP 5/325 TAB PO SCH (03:36)
[2017-06-16] MEDS: oxyCODONE IR 5 MG TAB PO PRN ×2 (06:34→10:47)
[2017-06-16] MEDS: ACETAMINOPHEN 500 MG TAB PO PRN ×2 (06:34→12:16)
[2017-06-16] MEDS: METHOCARBAMOL 750 MG TAB PO SCH ×3 (07:50→23:36)
[2017-06-16] MEDS: GABAPENTIN 300 MG CAP PO SCH ×4 (07:50→23:53)
[2017-06-16] MEDS ORDERED: NALOXONE HCL 0.4 MG/ML INJ IVP PRN ×2 (08:45→08:48)
[2017-06-16] MEDS ORDERED: morphINE PCA 30 MG/30 ML PCA IV PRN (08:45)
[2017-06-16] MEDS ORDERED: GABAPENTIN 300 MG CAP PO ONE (08:52)
[2017-06-16] MEDS: morphINE PCA 30 MG/30 ML PCA IV PRN ×2 (09:09→15:39)
[2017-06-16] MEDS: FLUTICASONE/SALMETER 500/50MCG DISKUS IH SCH ×2 (09:28→20:53)
[2017-06-16] MEDS: LEVALBUTEROL 1.25 MG/3 ML DEYVIAL IH SCH ×3 (09:28→21:51)
[2017-06-16] MEDS: TIOTROPIUM INHALER 18 MCG/DOSE 5 DOSE/MDI IH SCH (09:29)
--- NOTE | 2017-06-16 10:04 | NEUSURGPN ---
Assessment/Plan: 81 yo male with right leg/groin pain. MRI shows rigth extraforaminal disc at L1/ 2 and large right herniated disc at L4/5. Dr. Phillips saw and evaluated recommending Rigth L1/2. L4/5 microdiscectomy. -Cleared for surgery by medicine team -To OR with Dr. Fabian tomorrow at 0730 -NPO after midnight -Continue to optimize pain control -Preop orders in -Dr. Fabian will see later today as well -Will need consents in am -Discussed with patient, and RN Subjective: Patient with extreme right sided groin pain. Also has numbness and pain down side of right leg. Denies weakness or saddle anesthesia. Objective: VSS, appears in pain, uncomfortable and unsettled BLE 5/5= Sensation diminished right lower along lateral daly Catheter Insertion Date: 06/15/17 - Physician Discussed Patient with Dr.: Fabian Neurosurgery Physical Exam - Vitals, I&O, Labs I and O 06/15/17 06/16/17 06/17/17 05:59 05:59 05:59 Intake Total 392 Output Total 1500 Balance -1108 Intake: IV Infused (ml) 392 morphINE FANCY PACKER See Protocol 392 IV PRN PRN Rx#: [id number] Output: Urine (ml) 1200 Catheter 1200 Emesis (ml) 300 Other: Intake Quantity Yes Sufficient Vital Signs Temp Pulse Resp BP Pulse Ox 37.0 C 72 16 117/64 95 06/16/17 09:45 06/16/17 09:45 06/16/17 09:45 06/16/17 09:45 06/16/17 09:45 ICD10 Worksheet Patient Problems: Problems Problem Status Onset Sciatica Acute
[2017-06-16] MEDS ORDERED: KETAMINE 500 MG in D5W 500 ML IV SCH ×2 (11:45→12:30)
[2017-06-16] MEDS: ONDANSETRON 4 MG/2 ML VIAL IVP PRN ×3 (12:09→23:33)
[2017-06-16] MEDS: PANTOPRAZOLE SODIUM 40 MG TAB PO SCH (12:14)
[2017-06-16] MEDS: predniSONE 5 MG TAB PO SCH (12:14)
[2017-06-16] MEDS ORDERED: NS 1,000 ML IV ONE (13:00)
[2017-06-16] MEDS: ATORVASTATIN CALCIUM 10 MG TAB PO SCH (13:11)
[2017-06-16] MEDS: MEMANTINE HCL 5 MG TAB PO SCH (13:22)
[2017-06-16] MEDS: THEOPHYLLINE 400 MG PO SCH (13:26)
--- NOTE | 2017-06-16 16:25 | HOSPPROG ---
Hospitalist Progress Note Assessment/Plan: 81-year-old with known lower back pain who had sudden worsening of his lower back pain. Patient is new to me today - uncontrolled lumbar disc pain secondary to herniation is noted in the neuro surgical notes. HARVESTING SUPERVISOR has not worked well for his pain and he will be transferred to the ICU and placed on a ketamine drip along with HARVESTING SUPERVISOR if needed. Plan: Surgery tomorrow a.m.. - COPD and chronic respiratory failure with dependent on 3 L nasal prong oxygen and steroids plan: Continue O2 and steroids. I suggest a stress dose of steroids preoperatively. - Dementia: Is difficult to determine the severity of his dementia. Plan: Continue Namenda and Aricept. Watch for postop delirium. X-rays were reviewed with Radiology. Case has been discussed with nursing on and the ICU. Plan: Transferred to ICU for ketamine drip for pain control and neurosurgery tomorrow for definitive care patient is medically cleared for Neurosurgery tomorrow. I have ordered a chest x-ray an ECG. These will be reviewed before surgery. As he has significant COPD and chronic respiratory failure he has a moderate surgical risk. He has no history of coronary disease. His exercise tolerance is approximately 3 Mets. We will follow along with you. Subjective: Reports very significant right sided pain and right radiculopathy. Objective: Vital Signs Temp Pulse Resp BP Pulse Ox 36.9 C 67 16 89/48 L 95 06/16/17 13:51 06/16/17 13:51 06/16/17 13:51 06/16/17 13:51 06/16/17 13:51 06/15/17 06/16/17 06/17/17 05:59 05:59 05:59 Intake Total 392 Output Total 1500 150 Balance -1108 -150 - Time Spent With Patient Time Spent with Patient: greater than 35 minutes Time Spent with Patient: Greater than 35 minutes spent on this patients care, greater than 50% of time spent counseling, educating, and coordinating care regarding the above mentioned plan. - Pending Discharge Pending Discharge Within 24 Hours: No Pending Discharge Within 48 Hours: No - Physical Exam Constitutional: chronically ill appearing, other ( Appears in pain.) Eyes: PERRL, anicteric sclera Ears, Nose, Mouth, Throat: moist mucous membranes, hard of hearing Cardiovascular: regular rate and rhythym, systolic murmur, JVD ( JVD is not elevated and there is no edema.), pulses symmetric bilaterally ( Pulses are symmetric bilaterally at 2+. No bruits are heard) Respiratory: reduced air movement, expiratory wheeze, inspiratory crackles, rhonchi Gastrointestinal: normoactive bowel sounds, soft, non-tender abdomen, no palpable masses Genitourinary: no bladder fullness Skin: warm, other ( significant ecchymosis is noted on the forearms stay secondary to his long-term steroid use. No active bleeding is seen.) Musculoskeletal: generalized weakness Neurologic: AAOx3, CN II-XII Intact, other ( Reports very significant right- sided pain and right low back pain.) Psychiatric: anxious, agitated ICD10 Worksheet Patient Problems: Problems Problem Status Onset Sciatica Acute
[2017-06-16] MEDS ORDERED: NS BOLUS 1000 ML (Wide open) IV ONE (17:30)
[2017-06-16] MEDS: ONDANSETRON DISINTEGRATING 4 MG TAB PO PRN (19:22)
[2017-06-16] MEDS ORDERED: PROMETHAZINE HCL 25 MG/ML INJ IV ONE (20:30)
[2017-06-16] MEDS ORDERED: HALOPERIDOL LACT 5 MG/ML INJ IVP ONE (21:04)
[2017-06-16] MEDS: PRAMIPEXOLE 1 MG TAB PO SCH (22:16)
[2017-06-16] MEDS: CALCIUM CARBONATE 500 MG TAB PO SCH (22:16)
[2017-06-16] MEDS: TAMSULOSIN HCL 0.4 MG CAP PO SCH ×2 (22:16→23:53)
[2017-06-16] MEDS: SODIUM CL NASAL GEL 14.1 GM TUBE TP SCH (22:16)
[2017-06-16] MEDS: NS W/ 20 KCl/L 1,000 ML IV SCH (22:17)
[2017-06-16] MEDS: DONEPEZIL HCL 5 MG TAB PO SCH ×2 (23:36→23:53)
[2017-06-17 04:55] LABS: ALANINE AMINOTRANSFERASE 28 IU/L (21-72); ALBUMIN 2.7 g/dL (3.5-5.0); ALKALINE PHOSPHATASE 60 IU/L (38-126); ANION GAP 5 mEq/L (8-16); ASPARTATE AMINOTRANSFERASE 34 IU/L (17-59); BILIRUBIN,TOTAL 0.7 mg/dL (0.1-1.4); CALCIUM 8.9 mg/dL (8.5-10.4); CARBON DIOXIDE 30 mEq/l (22-31); CHLORIDE 99 mEq/L (97-110); CREATININE 1.2 mg/dL (0.7-1.3); GLOMERULAR FILTRATION RATE 58; GLUCOSE 77 mg/dL (70-100); POTASSIUM 4.5 mEq/L (3.5-5.2); SODIUM 134 mEq/L (134-144); TOTAL PROTEIN 4.8 g/dL (6.3-8.2)
[2017-06-17 06:02] LABS: % IMMATURE GRANULYOCYTES 0.3 % (0.0-1.1); ABSOLUTE IMMATURE GRANULOCYTES 0.03 10^3/uL (0.00-0.10); ADD DIFF? NO; ADD MORPH? NO; ADD SCAN? NO; ATYPICAL LYMPHOCYTE FLAG 0 (0-99); FRAGMENT RBC FLAG 40 (0-99); HEMATOCRIT 35.4 % (40.0-51.0); HEMOGLOBIN 11.1 g/dL (13.7-17.5); LEFT SHIFT FLG 0 (0-99); LIPEMIA HEMOLYSIS FLAG 80 (0-99); MEAN CELL HEMOGLOBIN 29.3 pg (27.9-34.1); MEAN CELL HEMOGLOBIN CONCENTR. 31.4 g/dL (32.4-36.7); MEAN CELL VOLUME 93.4 fL (81.5-99.8); MEAN PLATELET VOLUME 10.1 fL (8.7-11.7); PLATELET CLUMPS FLAG 0 (0-99); PLATELET COUNT 183 10^3/uL (150-400); RED BLOOD CELL COUNT 3.79 10^6/uL (4.40-6.38); RED CELL DISTRIBUTION WIDTH 13.8 % (11.5-15.2)
[2017-06-17] MEDS ORDERED: CHLORHEXIDINE GLUC HIBICLENS 118 ML BTL TP ONE (06:37)
[2017-06-17] MEDS ORDERED: THROMBIN (BOVINE) 5,000 UNIT VIAL TP ONE (06:37)
[2017-06-17] MEDS ORDERED: BACITRACIN 50,000 UNITS/10 ML SYR IRR ONE (06:38)
[2017-06-17] MEDS ORDERED: BUPIVACAINE 0.25% 30 ML SDV ONE (06:38)
[2017-06-17] MEDS ORDERED: fentaNYL 100 MCG/2 ML INJ ONE ×2 (07:15→10:49)
[2017-06-17] MEDS ORDERED: REMIFENTANIL HCL 1 MG VIAL ONE (07:15)
[2017-06-17] MEDS ORDERED: PROPOFOL/EMULSION 500 MG/50 ML BOTTLE IV ONE (07:16)
[2017-06-17] MEDS ORDERED: PROPOFOL 200 MG/20 ML VIAL ONE (07:25)
--- NOTE | 2017-06-17 07:32 | PDHPUP ---
History & Physical Update H&P update statement: This history and physical update is based on an assessment of the patient which was completed after admission or registration (within 24 hours), but prior to the surgery/procedure. H&P update: H&P reviewed & patient examined, no change in patient's condition since H&P completed
[2017-06-17] MEDS ORDERED: DEXAMETHASONE 4 MG/ML VIAL ONE (07:34)
[2017-06-17] MEDS ORDERED: ONDANSETRON 4 MG/2 ML VIAL ONE (07:34)
[2017-06-17] MEDS ORDERED: ROCURONIUM 50 MG/5 ML VIAL ONE (07:34)
--- NOTE | 2017-06-17 08:22 | PDANEPAE ---
ANE History of Present Illness severe back and leg pain 2/2 lumbar disc herniation ANE Past Medical History - Cardiovascular History Hx Hypertension: No Hx Arrhythmias: No Hx Chest Pain: No Hx Coronary Artery / Peripheral Vascular Disease: No Hx CHF / Valvular Disease: No Hx Palpitations: No - Pulmonary History Hx COPD: Yes Hx Asthma/Reactive Airway Disease: No Hx Recent Upper Respiratory Infection: Yes Hx Oxygen in Use at Home: Yes O2 in Use at Home (L/minute): 3 Hx Sleep Apnea: No Sleep Apnea Screening Result - Last Documented: Positive Pulmonary History Comment: 04/10/17 TREATED WITH ANTIBIOTIC. EMPHYSEMA. CHRONIC COUGH/BRONCHITIS - Neurologic History Hx Cerebrovascular Accident: No Hx Seizures: No Hx Dementia: No - Endocrine History Hx Diabetes: No - Renal History Hx Renal Disorders: Yes Renal History Comment: BPH - Liver History Hx Hepatic Disorders: No - Neurological & Psychiatric Hx Hx Neurological and Psychiatric Disorders: Yes Neurological / Psychiatric History Comment: DEMENTIA - Cancer History Hx Cancer: No - Congenital Disorder History Hx Congenital Disorders: No - GI History Hx Gastrointestinal Disorders: Yes Gastrointestinal History Comment: GERD - Other Health History Other Health History: SPINAL STENOSIS. SCIATICA. MUSCLE SPASMS. PREV AWILDA. RADIATION DOWN LT LEG - Chronic Pain History Chronic Pain: Yes (DOWN LEGS,SCIATICA,SPINAL STENOSIS) - Surgical History Prior Surgeries: JONATHON CATARACT. APPENDECTOMY. ING HERNIA. TONSILLECTOMY & ADENOIDS ANE Review of Systems Review of Systems: - Exercise capacity METS (RN): 3 METS ANE Patient History - Allergies Allergies/Adverse Reactions: lorazepam [From Ativan] Allergy (Mild, Verified 06/14/17 10:43) confusion, restless leg - Home Medications Home medications: home medication list seen and reviewed Home Medications: Acetaminophen [Tylenol 325mg (*)] 325 mg PO Q6 PRN 05/19/17 [Last Taken 06/14/17 ] Albuterol [Proventil Inhaler HFA (*)] 1 - 2 puffs IH Q4H PRN 05/19/17 [Last Taken 06/13/17] Calcium Carbonate [Oyster Shell Calcium 500 mg (*)] 1,000 mg PO HS 05/19/17 [ Last Taken 06/13/17] Cyanocobalamin [Vitamin B12 (*)] 1,000 mcg PO DAILY 05/19/17 [Last Taken ] Donepezil HCl [Aricept 5 MG (*)] 5 mg PO HS 05/19/17 [Last Taken 06/13/17] Fluticasone Nasal [Flonase Nasal Lena (RX)] 1 sprays NASAL DAILY PRN 05/19/17 [ Last Taken 06/13/17] Fluticasone/Salmeter 500/50Mcg [Advair 500/50 (*)] 1 puffs IH BID 05/19/17 [ Last Taken 06/13/17] Gabapentin [Neurontin 300 MG (*)] 300 mg PO BID 05/19/17 [Last Taken 06/14/17] Herbals/Supplements -Info Only 1 ea PO DAILY 05/19/17 [Last Taken 06/13/17] Ipratropium 0.03% Nasal [Atrovent 0.03% Nasal (*)] 2 sprays EACHNARE TID PRN 05/28 [Last Taken 06/13/17] Lansoprazole [Lansoprazole 15 mg] 15 mg PO DAILY 05/19/17 [Last Taken 06/13/17] Levalbuterol 1.25 mg [Xopenex 1.25MG Neb (*)] 1.25 mg IH TID 05/19/17 [Last Taken 06/13/17] Loratadine [Claritin] 10 mg PO DAILY PRN 05/19/17 [Last Taken 06/13/17] Memantine HCl [Namenda 10 mg] 10 mg PO BID 05/19/17 [Last Taken 06/13/17] Multivitamins [Multivitamin (*)] 1 each PO 05/19/17 [Last Taken 06/13/17] Pramipexole Di-HCl [Mirapex 1 mg (*)] 1 mg PO HS 05/19/17 [Last Taken 06/13/17] Simvastatin [Zocor] 20 mg PO 05/19/17 [Last Taken 06/13/17] Sodium Cl Nasal Gel [[place] Saline Nasal Gel] 1 reg TP 05/19/17 [Last Taken 11/28] Tamsulosin HCl [Flomax 0.4 MG (*)] 0.4 mg PO HS 05/19/17 [Last Taken 06/13/17] Theophylline Anhydrous [Theophylline] 400 mg PO DAILY@12 05/19/17 [Last Taken ] Tiotropium Inhaler [Spiriva Inhaler] 1 inh IH DAILY 05/19/17 [Last Taken ] celeCOXIB [CeleBREX] 100 mg PO BID 05/19/17 [Last Taken 06/13/17] predniSONE 12.5 mg PO DAILY 05/19/17 [Last Taken 06/14/17] Hydrocodone/Acetaminophen [[place] 5/325 (*)] 1 each PO Q4 06/14/17 [Last Taken ] - Anes Hx Anes Hx: no prior problems - Smoking Hx Smoking Status: Former smoker - Family Anes Hx Family Hx Anesthesia Complications: NONE ANE Labs/Vital Signs - Labs Result Diagrams: 06/17/17 04:12 06/17/17 04:12 - Vital Signs Blood Pressure: 106/56 Heart Rate: 60 Respiratory Rate: 13 O2 Sat (%): 96 Height: 175.26 cm Weight: 68.946 kg ANE Physical Exam - Airway Neck exam: FROM Mallampati Score: Class 2 Mouth exam: poor dentition, dentures - Pulmonary Pulmonary: no respiratory distress - Cardiovascular Cardiovascular: regular rate and rhythym - ASA Status ASA Status: III ANE Anesthesia Plan Anesthesia Plan: general endotracheal anesthesia Urgent/Emergent Case: Valentina adair completed preop but documented later for safe timely pt care
[2017-06-17] MEDS: FLUTICASONE/SALMETER 500/50MCG DISKUS IH SCH ×2 (08:43→21:04)
[2017-06-17] MEDS: ATORVASTATIN CALCIUM 10 MG TAB PO SCH (08:43)
[2017-06-17] MEDS: GABAPENTIN 300 MG CAP PO SCH ×2 (08:44→21:18)
[2017-06-17] MEDS: PANTOPRAZOLE SODIUM 40 MG TAB PO SCH (08:44)
[2017-06-17] MEDS: LEVALBUTEROL 1.25 MG/3 ML DEYVIAL IH SCH ×3 (08:44→21:04)
[2017-06-17] MEDS: TIOTROPIUM INHALER 18 MCG/DOSE 5 DOSE/MDI IH SCH (08:44)
[2017-06-17] MEDS: METHOCARBAMOL 750 MG TAB PO SCH ×3 (08:44→21:19)
[2017-06-17] MEDS: MEMANTINE HCL 5 MG TAB PO SCH (08:44)
[2017-06-17] MEDS: predniSONE 5 MG TAB PO SCH (08:44)
[2017-06-17] MEDS: methylPREDNISolone SOD SUCC 125 MG/2 ML VIAL ONE ×2 (09:55→10:10)
[2017-06-17] MEDS ORDERED: HYDROmorphONE/DILAUDID 2 MG/ML INJ ONE (09:57)
[2017-06-17] MEDS ORDERED: ALBUTEROL 3 ML DEYVIAL IH PRN (10:13)
[2017-06-17] MEDS ORDERED: ONDANSETRON 4 MG/2 ML VIAL IVP PRN (10:13)
[2017-06-17] MEDS ORDERED: PROMETHAZINE HCL 25 MG/ML INJ IVP PRN (10:13)
[2017-06-17] MEDS ORDERED: fentaNYL 100 MCG/2 ML INJ IVP PRN (10:13)
[2017-06-17] MEDS ORDERED: HYDROmorphONE/DILAUDID 1 MG/ML INJ IVP PRN (10:13)
[2017-06-17] MEDS ORDERED: NALOXONE HCL 0.4 MG/ML INJ IVP PRN (10:13)
[2017-06-17] MEDS ORDERED: LR 500 ML IV PRN (10:13)
[2017-06-17] MEDS ORDERED: methylPREDNISolone SOD SUCC 125 MG/2 ML VIAL IVP ONE (10:15)
[2017-06-17] MEDS ORDERED: BUPIVACAINE 0.25% 30 ML SDV MISC ONE (10:30)
[2017-06-17] MEDS ORDERED: HYDROmorphONE/DILAUDID 1 MG/ML INJ ONE (10:49)
--- NOTE | 2017-06-17 10:51 | NEUSURGPN ---
Date of Surgery: 06/17/17 Post Op Day: 0 Assessment/Plan: 81M with irretractable right leg/groin pain. MRI shows rigth extraforaminal disc at L1/2 and large right herniated disc at L4/5. will proceed with L45 ADRIANO and L12 ADRIANO from the right. risks/benefits of surgery have been discussed, consents have been signed. Will proceed with surgery this am Subjective: continued pain in groin on right. no c/o weakness, loss of bowel/bladder function, but does have marquez placed. family at bedsided Objective: NAD AAOx3 cnii-xii grossly intact MAEx4 BLE 5/5, except slight EHL weakness on left compared to right +LT Catheter Insertion Date: 06/15/17 Neurosurgery Physical Exam - Vitals, I&O, Labs I and O 06/16/17 06/17/17 06/18/17 05:59 05:59 05:59 Intake Total 392 2356.4 Output Total 1500 2450 Balance -1108 -93.6 Weight 68.946 kg Intake: Oral (ml) 650 IV Intake (ml) 300 IV Infused (ml) 392 1406.4 Ketamine 500 mg In D5w 146.0 500 ml @ Per Protocol IV CONT RENEE Rx#:[id number] Ns 1,000 ml @ 125 mls/hr 1257 IV ONCE ONE Rx#: [id number] morphINE INSTRUMENTATION ENGINEER See Protocol 392 3.4 IV PRN PRN Rx#: [id number] Output: Urine (ml) 1200 1950 Catheter 1200 1950 Emesis (ml) 300 500 Other: Intake Quantity Yes Sufficient Number of Stools Catheter 0 Bladder Scan Volume (ml) Catheter 0 Vital Signs Temp Pulse Resp BP Pulse Ox 36.8 C 60 13 106/56 L 96 06/17/17 04:00 06/17/17 08:22 06/17/17 08:22 06/17/17 08:22 06/17/17 08:22 Laboratory Results 06/17/17 04:12 06/17/17 04:12 ICD10 Worksheet Patient Problems: Problems Problem Status Onset Sciatica Acute
--- NOTE | 2017-06-17 10:51 | POSTANESTH ---
Post Anesthetic Evaluation Cardiovascular Status: Normal, Stable Respiratory Status: Normal, Stable Level of Consciousness/Mental Status: Can Participate in Eval Pain Control: Inadeq, Add Tx Required Nausea/Vomiting Control: Adequate, Prn Tx Ordered Complications Possibly Related to Anesthesia: None Noted
[2017-06-17] MEDS ORDERED: DIAZEPAM 10 MG/2 ML SYR ONE (12:28)
[2017-06-17] MEDS ORDERED: DIAZEPAM 5 MG TAB PO PRN (12:29)
--- NOTE | 2017-06-17 12:50 | POSTOPPROG ---
Post Op Note Date of Operation: 06/17/17 Surgeon: José Luis Fabian Digital Strategy Specialist: Bay Deluna Anesthesiologist: Francisco Amin Anesthesia: GET(General Endotracheal) Pre-op Diagnosis: Lumbar stenosis w/ radiculopathy Post-op Diagnosis: Lumbar stenosis w/ radiculopathy Indication: irretractable pain from cord and nerve root compression Procedure: L12 ADRIANO from the right, L45 ADRIANO Inf/Abcess present in the surg proc area at time of surgery?: No Depth: Organ Space EBL: 100-500
--- NOTE | 2017-06-17 12:52 | SOAPPROG ---
SOAP Progress Note Assessment/Plan: Assessment: 81 yo M sp right L4/5 and right L1/2 far lateral microdiscectomy Plan: neuro: patient having episodes of back spasms but dropped respiratory rate after receiving valium in the ICU. Will continue to watch pain level closely but likely lean towards robaxin for further muscle spasms. Dr Austin at bedside helping with medical issues. keep in ICU to watch respiratory status PT/OT please call with neuro changes discussed with Dr Fabian 06/17/17 12:49 06/17/17 12:52 Subjective: patient not complaining of groin pain to family, patient just received valium and no is very sleepy Objective: Vital Signs Temp Pulse Resp BP Pulse Ox 36.2 C 70 16 123/46 H 94 06/17/17 11:29 06/17/17 12:00 06/17/17 12:00 06/17/17 12:00 06/17/17 12:00 Laboratory Results 06/17/17 04:12 06/17/17 04:12 06/16/17 06/17/17 06/18/17 05:59 05:59 05:59 Intake Total 392 2356.4 1500 Output Total 1500 2450 375 Balance -1108 -93.6 1125 somnolent, opens eyes to deep painful stimuli PERRL, no facial droop VIOLA x 4 when awake ICD10 Worksheet Patient Problems: Problems Problem Status Onset Sciatica Acute
[2017-06-17] MEDS: THEOPHYLLINE 400 MG PO SCH (13:26)
[2017-06-17] MEDS ORDERED: PRAMIPEXOLE 1 MG TAB PO ONE (14:15)
--- NOTE | 2017-06-17 16:07 | GCON ---
[f rep st] CONSULTATION CRITICAL CARE CONSULTATION DATE OF CONSULTATION: 06/17/2017 HISTORY OF PRESENT ILLNESS: The patient is an 81-year-old male with a history of spinal stenosis and sciatica with intense groin pain, who was admitted on 06/14 for pain control. He was planning to feldman ve a diskectomy in the near future anyway, was re-evaluated on admission, and underwent a lumbar disk ectomy late yesterday. The surgery itself was apparently without complications, and overnight he has had difficulties with pain control since that time. He also has a history of severe COPD with an FE V1 of only 32% of predicted and chronic oxygen requirements, as well as a history of CO2 retention. He was followed by a auto parts manager in [place] for several years, getting prednisone only, and recentl y has been connected with Dr. Zurita, who has been slowly decreasing his prednisone dose down to 12.5 mg daily. In any case, he was having pain today, but outside of that, did not have any breathing com plaints next. REVIEW OF SYSTEMS: Otherwise negative. PAST MEDICAL HISTORY: 1. COPD as described above with an FEV1 of 32% of predicted. He is on chronic prednisone for this. He has also had stem-cell treatment for this that had been ineffective and has CO2 retention. 2. Cognitive impairment and dementia. 3. Benign prostatic hypertrophy. 4. Gastroesophageal reflux disease. 5. Hyperlipidemia. 6. Osteoporosis and osteopenia. 7. Pneumonia in the past. 8. Spinal stenosis. 9. Restless legs syndrome. 10. Sciatica. PAST SURGICAL HISTORY: Includes hernia repair, Achilles tendon repair, tonsillectomy, and vasectomy in the past. SOCIAL HISTORY: He is a remote smoker, but quit several years ago. Minimal to no alcohol and no alc ohol-related problems. FAMILY HISTORY: Includes coronary artery disease and hyperlipidemia. MEDICATIONS: Include albuterol, Lipitor, calcium carbonate, Celebrex, Zyrtec, Aricept, Lovenox, Flon ase, gabapentin, Atrovent nasal spray, Xopenex, Namenda, Robaxin, morphine RATE SETTER, Zofran, Protonix, Wale apex, prednisone, Advair, Flomax, Spiriva. PHYSICAL EXAMINATION: VITAL SIGNS: He was afebrile and a blood pressure 137/59. Heart rate is 71, respirations 18, oxygen saturation 95% on 4 L. GENERAL: He was awake and alert and conversive and o riented x3, was in mild distress from obvious pain and discomfort with occasional spasms. HEENT: Pu pils equally round and reactive to light. Nonicteric and noninjected. Mucous membranes are moist wi thout erythema or exudate. NECK: Supple without adenopathy or jugular vein distention. LUNGS: Jazmin ath sounds were clear to auscultation bilaterally without wheezes, rubs, or rales. HEART: Regular r ate and rhythm without murmurs, rubs, or gallops. ABDOMEN: Soft, nontender, nondistended without he patosplenomegaly. EXTREMITIES: Show no clubbing, cyanosis, or edema. NEUROLOGICAL: Exam was nonfo beverley. He had movement of all extremities. He did have pain, tenderness at the surgical site on the r ight. SKIN: Warm and dry without evidence of rash. OBJECTIVE DATA: Includes a white count of 8.6, hematocrit 35, platelets of 183. Basic metabolic denise el was unremarkable save for a creatinine of 1.2. ASSESSMENT AND PLAN: 1. Status post back surgery with difficulty with pain control issues. He was getting morphine RATE SETTER 0 .75 q.20 minutes, which appeared to be inadequate. He was then given 1 mg of morphine, which was rep ortedly to have had little to no effect. Because of his spasms, he was then given p.o. Valium, which did produce a desired effect, though he became hypoxic very briefly during this period of time. He was placed on a non-rebreather and subsequently resolved very quickly back to nasal cannula, though taj lemus was somewhat somnolent afterwards. I think we should proceed with caution in terms of pain control to find a balance between excess sedation and adequate control. Once he is cleared from an oral med ication perspective, I think this will be much better, and we can resume his outpatient oral medicati ons. We could consider Anesthesia Pain Service should we have ongoing problems with this. Toradol i s reasonable for a one time, but I would be hesitant to use it with his creatinine of 1.2 and advance d age. 2. Chronic obstructive pulmonary disease. He is getting his Advair and Spiriva, and as well as albu terol. He will continue to get his prednisone at this point since he has been on this for quite some time. We would probably benefit from holding his theophylline since I think that will create more p roblems than it will help. We should continue with his oxygen, titrating this to the lower end of no rmal given his history of CO2 retention. 3. Restless legs syndrome. We can continue his Mirapex at night. 4. Dementia. Continue with his Aricept moving forward. A total of 35-40 minutes of critical care time was required for this patient. /[id number]/MODL
[2017-06-17] MEDS: NS W/ 20 KCl/L 1,000 ML IV SCH (19:12)
[2017-06-17] MEDS: DONEPEZIL HCL 5 MG TAB PO SCH (21:17)
[2017-06-17] MEDS: CALCIUM CARBONATE 500 MG TAB PO SCH (21:17)
[2017-06-17] MEDS: TAMSULOSIN HCL 0.4 MG CAP PO SCH (21:18)
[2017-06-17] MEDS: SODIUM CL NASAL GEL 14.1 GM TUBE TP SCH (21:19)
[2017-06-17] MEDS: PRAMIPEXOLE 1 MG TAB PO SCH (21:24)
--- NOTE | 2017-06-18 07:53 | NEUSURGPN ---
Assessment/Plan: Assessment: 81 yo M sp right L4/5 and right L1/2 far lateral microdiscectomy - POD#1 Plan: neuro: neuro intact, Pain well managed. crit care helping with medical issues. keep in ICU to watch respiratory status - ok to transfer to floor if cleared by crit care Lovenox today, TEDs, SCDs Pain management - DC IV pain meds per Dr Fabian, oral meds only PT/OT please call with neuro changes discussed with Dr Fabian If pain well managed and respiratory status ok, ok for DC from NS standpoint. Will need post op visit in 2-3 weeks. Subjective: Pt resting in bedside chair, some back pain when sitting up. Denies leg pain. Objective: AAOx3 NAD VSS MAEx4 Motor 5/5 BLE +LT Incisions dressed cdi Urinary Catheter in Place: No Catheter Insertion Date: 06/15/17 - Physician Discussed Patient with : Rui Neurosurgery Physical Exam - Vitals, I&O, Labs I and O 06/17/17 06/18/17 06/19/17 05:59 05:59 05:59 Intake Total 2356.4 3742 Output Total 2450 1675 Balance -93.6 2067 Weight 68.946 kg Intake: Oral (ml) 650 560 IV Intake (ml) 300 1500 IV Infused (ml) 1406.4 1682 Ketamine 500 mg In D5w 146.0 500 ml @ Per Protocol IV CONT RENEE Rx#:[id number] NS W/ 20 KCl/L 1,000 ml @ 1682 125 mls/hr IV CONT RENEE Rx#:[id number] Ns 1,000 ml @ 125 mls/hr 1257 IV ONCE ONE Rx#: [id number] morphINE PROCESS DEVELOPMENT CHEMIST See Protocol 3.4 IV PRN PRN Rx#: [id number] Output: Urine (ml) 1950 1625 Bedside Commode 0 Catheter 1950 1625 Estimated Blood Loss (ml) 50 Emesis (ml) 500 Other: Number of Voids Urinal 0 Number of Stools Catheter 0 Bladder Scan Volume (ml) Catheter 0 Vital Signs Temp Pulse Resp BP Pulse Ox 36.7 C 65 15 100/65 99 06/18/17 04:00 06/18/17 06:00 06/18/17 06:00 06/18/17 06:00 06/18/17 06:00 Laboratory Results 06/17/17 04:12 06/17/17 04:12 ICD10 Worksheet Patient Problems: Problems Problem Status Onset Sciatica Acute
[2017-06-18] MEDS: ATORVASTATIN CALCIUM 10 MG TAB PO SCH (08:39)
[2017-06-18] MEDS: GABAPENTIN 300 MG CAP PO SCH ×2 (08:39→20:20)
[2017-06-18] MEDS: PANTOPRAZOLE SODIUM 40 MG TAB PO SCH (08:40)
[2017-06-18] MEDS: METHOCARBAMOL 750 MG TAB PO SCH ×3 (08:40→21:33)
[2017-06-18] MEDS: predniSONE 5 MG TAB PO SCH (08:41)
[2017-06-18] MEDS: FLUTICASONE/SALMETER 500/50MCG DISKUS IH SCH ×2 (09:30→22:25)
[2017-06-18] MEDS: LEVALBUTEROL 1.25 MG/3 ML DEYVIAL IH SCH ×3 (09:30→22:25)
[2017-06-18] MEDS: TIOTROPIUM INHALER 18 MCG/DOSE 5 DOSE/MDI IH SCH (09:31)
[2017-06-18] MEDS: MEMANTINE HCL 5 MG TAB PO SCH (09:58)
--- NOTE | 2017-06-18 11:35 | GOP ---
[f rep st] OPERATIVE REPORT DATE OF OPERATION: 06/17/2017 SURGEON: José Luis Fabian MD ROADING ENGINEER: Bay Deluna PA-C. ANESTHESIA: GETA. PREOPERATIVE DIAGNOSIS: Significant multilevel lumbar spondylosis and stenosis most significant at L 4-5 where it is severe centrally and in bilateral recesses and on the right at L1-2 extra foraminally due to a far lateral disk herniation and concerns for right L1 radiculopathy in bilateral lower extr emities consistent with L4-5 stenosis and right L4-5 disk herniation with descending right L5 nerve r oot compression pain that is medically intractable. POSTOPERATIVE DIAGNOSIS: Significant multilevel lumbar spondylosis and stenosis most significant at L4-5 where it is severe centrally and in bilateral recesses and on the right at L1-2 extra foraminall y due to a far lateral disk herniation and concerns for right L1 radiculopathy in bilateral lower ext remities consistent with L4-5 stenosis and right L4-5 disk herniation with descending right L5 nerve root compression pain that is medically intractable. PROCEDURE PERFORMED: Open L4-5 laminectomy and right partial medial facetectomy with L4-5 diskectomy and decompression of the descending L5 nerve root and right L1-2 extra foraminal far lateral diskect christopher with decompression of the right L1 nerve, use of fluoroscopy less 1 hour physician time. Use of neuro monitoring. FINDINGS: Well decompressed L4-5 segments and at the level of the disk space superiorly and inferior ly from the disk space and clear decompression of the right L5 nerve with extraction of multiple software build engineer nate-appearing disk fragments and a significant amount of right-sided L1-2 far lateral disk removed. SPECIMENS: None. ESTIMATED BLOOD LOSS: 100 cc. INDICATIONS: The patient is a very pleasant 81-year-old male with some medical problems who was bein g seen by my partner, Dr. Phillips, as an outpatient. He was scheduled for an elective L4-5 decompress ion and diskectomy later this month that was felt to be causing bilateral right greater than left low er extremity symptoms. He did have a significant right-sided L4-5 disk herniation, in addition to se nicole central and bilateral foraminal recess stenosis from disk bulges and ligamentous hypertrophy. H owever, the patient presented over this past holiday weekend with worsening pain and new right inguin al pain and an MRI that demonstrated a new right-sided L1-2 far lateral disk herniation with signific ant compression of the exiting L1 nerve root. We could not get his pain controlled medically, and in fact, had to be transferred to the ICU for a ketamine infusion. To that end, Dr. Phillips and I spoke and we felt that surgical decompression was the next best step. Unfortunately, Dr. Phillips had sched uled to go out of town and he asked that I cover in his absence. I met with the patient's and h is daughter. We went over surgical plan that Dr. Phillips and I had devised and they agreed to proceed . Risks, benefits and alternatives were discussed. All questions were answered and informed consent was signed by the patient prior to the procedure. DESCRIPTION OF PROCEDURE: The patient was brought in the operating room and a sign-in was performed. He was given 2 g of IV Ancef to prevent postoperative infection. He was smoothly induced under gen eral anesthesia and intubated without difficulty. Appropriate IV access was obtained. SCDs were alisha july to prevent DVT. The patient was placed in a supine position on the operating table atop a Bi frame. All pressure points were padded and the Bi frame was cranked for maximal lumbar kyphosis . His low back was washed with chlorhexidine shampoo and rubbing alcohol which was allowed to dry. We traced out a midline incision and a right-sided incision as well, 4.5 cm off midline. ChloraPrep solution were used to sterilize the skin and then a sterile surgical field was draped with blue towel s, Ioban, and sterile surgical drape. The fluoro machine was draped sterilely and brought into the f ield as well. Prior to beginning the procedure, a time-out was performed where all members of surger y, anesthesia and nursing went over the necessary checklist items and agreed to proceed as one. 10 c c of 0.25% Marcaine injection was injected along the planned L4-5 midline incision and 10 cc was also injected along the right-sided L1-2 incision. Fluoro was used to localize the L4-5 disk space, and an incision was centered over this disk space and then a velvet was also placed over the L1-2 disk spac e. An incision, 4.5 cm, to the right of midline was centered over this disk space. We began our ope ration at L4-5 and a #10 scalpel was used to incise the skin and dermis and subcutaneous fat. Bovie electrocautery was used to split the lumbodorsal fascia and stripped the paraspinal musculature off t he L4-5 segments out to the bilateral facets, careful not to violate the facet capsules themselves. On the right, the medial facet was partially exposed so that a medial facetectomy could be performed in order to aid in our diskectomy. When we got to that stage, a Leksell rongeur was used to remove t he majority of the L4 lamina, the L4-5 interspinous ligament and the superior 2/3 of the L5 spinous p rocesses. A high-speed drill with a match stick bur was used to complete our L4 laminectomy and our partial L5 laminectomy, and then blunt dissection was used to dissect the L4-5 ligamentum flavum off the dura and this was then resected with Kerrison rongeurs. Once we had performed a wide central dec ompression, we performed a very minimal right-sided L4-5 medial facetectomy and then performed a righ t L4-5 diskectomy where we were able to extract multiple hardened pieces of disk herniation that was compressing the L5 nerve in the lateral recess. In this decompressive procedure, all midline neural structures and the right L5 nerve were adequately decompressed. Hemostasis was obtained and the woun d was packed with antibiotic soaked sponges. We then moved to the L1-2 level, and on the right, a #1 0 scalpel was used to incise the skin, dermis down to the subcutaneous fat 4.5 cm to the right of mid line over the center of the L1-2 disk space. I used a Bovie electrocautery to split the lumbar dorsa l fascia here, and then used blunt dissection with my finger to feel down to the L1 and L2 transverse processes. Once I was able to palpate these and also palpate the L1-2 joint, self-retaining retract ors were placed and fluoro was brought into the field once more to identify the level of the L1-2 dis k space. It was quite obvious with the L1-2 disk space was as there were large pieces of herniated d isk out there extraforaminally and I began to remove these with pituitary rongeurs. I was able to re move a significant amount of disk material far laterally at L1-2 and I was also able to visualize the exiting L1 nerve, and at the end of the case, after such substantial removal of disk material, it wa s very free and obviously decompressed. Antibiotic irrigation was used to clean this incision and he mostasis was obtained and 125 mg of Solu-Medrol was placed atop the L1 nerve on the right side. At t his point in time, both of our areas of decompression were complete and we then began with closure. Both incisions were closed with 0 Vicryl suture for the muscle layers and the fascia. Suprafascial i rrigation was performed to prevent infection. The dermis was closed with 2-0 pop-off Vicryl suture i n an interrupted and inverted fashion. The skin edges approximated well. The skin was cleaned with a wet and dry sponge. A layer of Dermabond was applied to each incision. Once this dried, sterile d ressings were placed and the drapes were removed. The patient was returned from the prone to supine position on to a stretcher and was reversed from anesthesia and extubated without difficulty. All co unts were correct. Neuromonitoring signals were stable during the procedure. There were no immediat e surgical or anesthetic complications. I was there for the entirety of the procedure, start to thomas gordon. The patient was taken to the recovery area where he was found to be in stable medical and neurol ogic condition. I updated his family and they were grateful for the care that I had given him. COMPLICATIONS: None. IMPLANTS: None. /[id number]/MODL
[2017-06-18] MEDS: MAGNESIUM HYDROXIDE 30 ML UDCUP PO PRN (11:49)
[2017-06-18] MEDS: ENOXAPARIN 40 MG/0.4 ML SYR SC SCH (12:07)
--- NOTE | 2017-06-18 15:22 | PDINTPN ---
Grinding And Spraying Supervisor Progress Note Assessment/Plan: Assessment/plan: 81 M with intractable pain related to protruding disks/ s/p microdiskectomy complicated by postop pain and hypoxemia. He had been treated with a ketamine drip preop per Dr. Mclaughlin, but responded well to morphine and valium. He also has severe COPD and has been on prednisone for several years prior to seeing Dr. Zurita, who is managing a prolonged taper. * s/p L4/5 and L1/2 microdiskectomy with surprising amount of pain relief. He remains very weak and needs max assist per PT/OT so will likely require inpatient rehab. No postoperative complications. Dr. Mclaughlin managing pain issues. * COPD- severe with FEV1= 32% on chronic Advair, Spiriva, albuterol, prednisone 12.5 daily, and theophylline. To avoid pulmonary complications, I would leave his prednisone dose at 12.5 for now. However, can safely dc theophylline (done) and continue other inhalers. He apparently has attempted stem cell therapy as well, with no appreciable effect despite large [id number] costs. * Hypoxia- mostly from his COPD and now at baseline. He had a brief spell of desaturation (<5 minutes) while up-titrating his pain control. He also has a known history of CO2 retention, so would be a good candidate for targeting a sat of 90-94% but not more. Subjective: substantial improvement in pain control from yesterday with minimal narcotic requirement Objective: Vital Signs Temp Pulse Resp BP Pulse Ox 36.7 C 69 16 114/53 L 93 06/18/17 12:00 06/18/17 14:00 06/18/17 14:00 06/18/17 14:00 06/18/17 14:00 Laboratory Results 06/17/17 04:12 06/17/17 04:12 06/17/17 06/18/17 06/19/17 05:59 05:59 05:59 Intake Total 2356.4 3742 Output Total 1920 1675 Balance -93.6 2067 Physical Exam - Physical Exam General Appearance: WD/WN, alert, no apparent distress EENT: PERRL/EOMI Neck: supple Respiratory: lungs clear, normal breath sounds, No respiratory distress, No wheezing Cardiac/Chest: regular rate, rhythm, No edema Abdomen: non-tender, soft, No distended Skin: normal color, warm/dry Lymphatic: no adenopathy Extremities: No pedal edema Neuro/Psych: alert, normal mood/affect, oriented x 3 ICD10 Worksheet Patient Problems: Problems Problem Status Onset Sciatica Acute
--- NOTE | 2017-06-18 17:59 | HOSPPROG ---
Hospitalist Progress Note Assessment/Plan: 81-year-old with known lower back pain who had sudden worsening of his lower back pain. Patient underwent a micro diskectomy at L1-2 and L4-5 with good relief of his pain. Pain now is well controlled. - Lumbar back pain postop of microdiskectomy: Will use fentanyl patch and minimal doses of oral narcotics for his pain relief. Need to minimize his narcotic use due to the COPD and respiratory depression. - COPD and chronic respiratory failure with dependent on 3 L nasal prong oxygen and steroids plan: Continue O2 and steroids. I suggest a stress dose of steroids preoperatively. - Dementia: The family claims he has never had a formal diagnosis of dementia. Will have a cognitive evaluation here as a baseline. Some of his cognitive function may be declined due to anesthesia pain medication and recent surgery. - Disposition: Needed PT OT evaluation to see if the gentleman safe to go home. He desperately wants to return home and this can be done perhaps with the assistance of home PT. A cognitive evaluation will also be helpful. The case was discussed with intensive care medicine on rounds in the ICU. Patient is safe for transfer to [facility]. Medications will be reviewed with Nursing. Subjective: Resting comfortably and reports his pain is much improved. He is able to sit up he is alert interactive. Denies chest pain shortness of breath or abdominal pain reports he feels stiff and is an ache in his back. There is no radicular leg pain. Objective: Vital Signs Temp Pulse Resp BP Pulse Ox 36.7 C 70 20 115/56 L 100 06/18/17 16:00 06/18/17 16:54 06/18/17 16:54 06/18/17 16:54 06/18/17 16:54 Laboratory Results 06/17/17 04:12 06/17/17 04:12 06/17/17 06/18/17 06/19/17 05:59 05:59 05:59 Intake Total 2356.4 3742 Output Total 0740 4015 Balance -93.6 7 - Time Spent With Patient Time Spent with Patient: greater than 35 minutes Time Spent with Patient: Greater than 35 minutes spent on this patients care, greater than 50% of time spent counseling, educating, and coordinating care regarding the above mentioned plan. - Pending Discharge Pending Discharge Within 24 Hours: No Pending Discharge Within 48 Hours: Yes Pending Discharge Date: 06/20/17 Pending Discharge Time: 11:00 - Physical Exam Constitutional: chronically ill appearing Eyes: PERRL, anicteric sclera Ears, Nose, Mouth, Throat: moist mucous membranes, hearing normal Cardiovascular: regular rate and rhythym, systolic murmur Respiratory: reduced air movement, bronchial breath sounds, other ( Distant breath sounds with scattered rhonchi and few crackles but no inspiratory or expiratory wheezing.) Gastrointestinal: normoactive bowel sounds, soft, non-tender abdomen, no palpable masses Genitourinary: no bladder fullness Skin: warm, other ( Surgical dressings are on the lumbar spine region without signs of inflammation the area is slightly tender.) Musculoskeletal: generalized weakness Neurologic: AAOx3, CN II-XII Intact Psychiatric: interacting appropriately ICD10 Worksheet Patient Problems: Problems Problem Status Onset Sciatica Acute
[2017-06-18] MEDS: fentaNYL 25 MCG PATCH TD SCH (18:46)
[2017-06-18] MEDS: CALCIUM CARBONATE 500 MG TAB PO SCH (20:20)
[2017-06-18] MEDS: TAMSULOSIN HCL 0.4 MG CAP PO SCH (20:20)
[2017-06-18] MEDS: NS 1,000 ML IV SCH (20:22)
[2017-06-18] MEDS: PRAMIPEXOLE 1 MG TAB PO SCH (20:31)
[2017-06-18] MEDS: SODIUM CL NASAL GEL 14.1 GM TUBE TP SCH (21:34)
[2017-06-19 04:49] LABS: % IMMATURE GRANULYOCYTES 0.6 % (0.0-1.1); ABSOLUTE IMMATURE GRANULOCYTES 0.05 10^3/uL (0.00-0.10); ADD DIFF? NO; ADD MORPH? NO; ADD SCAN? NO; ATYPICAL LYMPHOCYTE FLAG 0 (0-99); FRAGMENT RBC FLAG 0 (0-99); HEMOGLOBIN 9.6 g/dL (13.7-17.5); LEFT SHIFT FLG 0 (0-99); LIPEMIA HEMOLYSIS FLAG 80 (0-99); MEAN CELL HEMOGLOBIN 29.2 pg (27.9-34.1); MEAN CELL VOLUME 94.2 fL (81.5-99.8); MEAN PLATELET VOLUME 10.2 fL (8.7-11.7); PLATELET CLUMPS FLAG 0 (0-99); PLATELET COUNT 159 10^3/uL (150-400); RED BLOOD CELL COUNT 3.29 10^6/uL (4.40-6.38); RED CELL DISTRIBUTION WIDTH 14.3 % (11.5-15.2)
[2017-06-19 05:11] LABS: ANION GAP 3 mEq/L (8-16); CALCIUM 8.2 mg/dL (8.5-10.4); CARBON DIOXIDE 34 mEq/l (22-31); CHLORIDE 100 mEq/L (97-110); CREATININE 1.1 mg/dL (0.7-1.3); GLOMERULAR FILTRATION RATE > 60; GLUCOSE 99 mg/dL (70-100); POTASSIUM 4.4 mEq/L (3.5-5.2); SODIUM 137 mEq/L (134-144)
--- NOTE | 2017-06-19 07:29 | NEUSURGPN ---
Assessment/Plan: Assessment: 81 yo M sp right L4/5 and right L1/2 far lateral microdiscectomy - POD#2 Plan: neuro: neuro intact, Pain well managed and no longer having repiratory issues per nursing Lovenox OK, TEDs, SCDs Pain management - well controlled with fentanyl patch and scheduled robaxin, -- tylenol and NSAIDs OK if tolerated PT/OT please call with neuro changes discussed with Dr Rui CLARK for dc from NS persperctive Will need post op visit in 2-3 weeks. Subjective: some back pain and leg stiffness. preoperative groin pain is resolved Objective: AAOx3 NAD VSS MAEx4 Motor 5/5 BLE +LT Incisions dressed cdi Catheter Insertion Date: 06/15/17 - Physician Discussed Patient with : Rui Neurosurgery Physical Exam - Vitals, I&O, Labs I and O 06/18/17 06/19/17 06/20/17 05:59 05:59 05:59 Intake Total 3742 1730 Output Total 1675 Balance 2067 1730 Weight 68.946 kg Intake: Oral (ml) 560 930 IV Intake (ml) 1500 IV Infused (ml) 1682 800 NS W/ 20 KCl/L 1,000 ml @ 1682 125 mls/hr IV CONT RENEE Rx#:[id number] Ns 1,000 ml @ 125 mls/hr 800 IV CONT RENEE Rx#: [id number] Output: Urine (ml) 1625 Bedside Commode 0 Catheter 1625 Estimated Blood Loss (ml) 50 Other: Number of Voids Toilet 1 Urinal 0 Number of Stools Toilet 0 Bladder Scan Volume (ml) Bedside Commode 666 Urinal 600 Vital Signs Temp Pulse Resp BP Pulse Ox 37.0 C 69 15 122/62 H 98 06/19/17 04:00 06/19/17 04:00 06/19/17 04:00 06/19/17 04:00 06/19/17 04:00 Laboratory Results 06/19/17 04:37 06/19/17 04:37 ICD10 Worksheet Patient Problems: Problems Problem Status Onset Sciatica Acute
[2017-06-19] MEDS: NS 1,000 ML IV SCH (07:51)
[2017-06-19] MEDS: MAGNESIUM HYDROXIDE 30 ML UDCUP PO PRN (08:37)
[2017-06-19] MEDS: predniSONE 5 MG TAB PO SCH (08:37)
[2017-06-19] MEDS: GABAPENTIN 300 MG CAP PO SCH ×2 (08:39→19:53)
[2017-06-19] MEDS: METHOCARBAMOL 750 MG TAB PO SCH ×3 (08:39→21:17)
[2017-06-19] MEDS: PANTOPRAZOLE SODIUM 40 MG TAB PO SCH (08:41)
[2017-06-19] MEDS: ATORVASTATIN CALCIUM 10 MG TAB PO SCH (08:43)
[2017-06-19] MEDS: ENOXAPARIN 40 MG/0.4 ML SYR SC SCH (08:45)
[2017-06-19] MEDS: POLYETHYLENE GLYCOL 3350 17 GM PKT PO SCH (08:46)
[2017-06-19] MEDS: LEVALBUTEROL 1.25 MG/3 ML DEYVIAL IH SCH ×3 (09:34→21:38)
[2017-06-19] MEDS: FLUTICASONE/SALMETER 500/50MCG DISKUS IH SCH ×2 (09:34→21:38)
[2017-06-19] MEDS: TIOTROPIUM INHALER 18 MCG/DOSE 5 DOSE/MDI IH SCH (09:35)
--- NOTE | 2017-06-19 15:33 | HOSPPROG ---
Hospitalist Progress Note Assessment/Plan: 81-year-old with known lower back pain who had sudden worsening of his lower back pain. Patient underwent a micro diskectomy at L1-2 and L4-5 on 06/18 with good relief of his pain. Pain now is well controlled wiht fentanyl patch and robaxin - Lumbar back pain postop of microdiskectomy: Will use fentanyl patch and minimal doses of oral narcotics for his pain relief. Need to minimize his narcotic use due to the COPD and respiratory depression. Neurosurgery has signed off. Should have followup in 2-3 weeks. - COPD and chronic respiratory failure with dependent on 3 L nasal prong oxygen and steroids plan: Continue O2 and steroids. patient now on his usual dose of steroids. -constipation and urinary retention: followup residuals, patient refuses straight cath. will use lactulose for constipation. -SPCM: patient eating 75-100% of trays. eating well - Dementia: The family claims he has never had a formal diagnosis of dementia. Will have a cognitive evaluation here as a baseline. -DVT: prophylactic lovenox -code: full - Disposition: patient agrees to rehab. are awaiting In-patient rehab with [place] [facility] Case discussed with case managment and family. time 45 minutes Subjective: feeling improved. NO fever, cough, nausea, eating well Objective: Vital Signs Temp Pulse Resp BP Pulse Ox 36.7 C 76 16 111/60 96 06/19/17 12:00 06/19/17 14:06 06/19/17 14:06 06/19/17 12:00 06/19/17 14:06 Laboratory Results 06/19/17 04:37 06/19/17 04:37 06/18/17 06/19/17 06/20/17 05:59 05:59 05:59 Intake Total 3742 1730 Output Total 7322 750 Balance 4597 1730 -750 - Time Spent With Patient Time Spent with Patient: greater than 35 minutes Time Spent with Patient: Greater than 35 minutes spent on this patients care, greater than 50% of time spent counseling, educating, and coordinating care regarding the above mentioned plan. - Pending Discharge Pending Discharge Within 24 Hours: No Pending Discharge Within 48 Hours: No - Physical Exam Constitutional: no apparent distress Eyes: PERRL, anicteric sclera Cardiovascular: regular rate and rhythym, systolic murmur Respiratory: no respiratory distress, reduced air movement, expiratory wheeze, bronchial breath sounds, rhonchi, other (distance BS) Gastrointestinal: normoactive bowel sounds, soft, non-tender abdomen, no palpable masses Genitourinary: no bladder fullness Skin: warm Musculoskeletal: generalized weakness Neurologic: AAOx3, CN II-XII Intact Psychiatric: interacting appropriately, other (patient admits he is very sleepy and likes to sleep. First sleep he has had in a long time) ICD10 Worksheet Patient Problems: Problems Problem Status Onset Sciatica Acute
[2017-06-19] MEDS ORDERED: LACTULOSE 20 GM/30 ML UDCUP PO PRN (15:37)
[2017-06-19] MEDS ORDERED: BISACODYL 10 MG SUPP PR PRN (15:37)
[2017-06-19] MEDS: CALCIUM CARBONATE 500 MG TAB PO SCH (19:52)
[2017-06-19] MEDS: TAMSULOSIN HCL 0.4 MG CAP PO SCH (19:52)
[2017-06-19] MEDS: SENNOSIDES/DOCUSATE SODIUM TAB PO SCH (19:53)
[2017-06-19] MEDS: PRAMIPEXOLE 1 MG TAB PO SCH (19:54)
[2017-06-19] MEDS: SODIUM CL NASAL GEL 14.1 GM TUBE TP SCH (21:23)
--- NOTE | 2017-06-20 07:25 | SOAPPROG ---
SOAP Progress Note Assessment/Plan: Assessment: 81 yo M sp right L4/5 and right L1/2 far lateral microdiscectomy - POD#3 Plan: neuro: neuro intact, Pain well managed Lovenox OK, TEDs, SCDs Pain management - well controlled with fentanyl patch and scheduled robaxin, -- tylenol and NSAIDs OK if tolerated PT/OT +BM last night please call with neuro changes OK for dc to rehab from NS perspective leave dressing on for 7 days and then can remove Will need post op visit in 2-3 weeks. 06/20/17 07:23 Subjective: no complaints Objective: Vital Signs Temp Pulse Resp BP Pulse Ox 36.7 C 64 16 134/67 H 100 06/20/17 00:17 06/20/17 00:17 06/20/17 00:17 06/20/17 00:17 06/20/17 00:17 Laboratory Results 06/19/17 04:37 06/19/17 04:37 06/19/17 06/20/17 06/21/17 05:59 05:59 05:59 Intake Total 1730 Output Total 1350 Balance 1730 -1350 mild confusion, full strength and sensation, dressing c/d/i ICD10 Worksheet Patient Problems: Problems Problem Status Onset Sciatica Acute
[2017-06-20] MEDS: LEVALBUTEROL 1.25 MG/3 ML DEYVIAL IH SCH ×3 (08:10→20:33)
[2017-06-20] MEDS: FLUTICASONE/SALMETER 500/50MCG DISKUS IH SCH ×2 (08:10→20:33)
[2017-06-20] MEDS: TIOTROPIUM INHALER 18 MCG/DOSE 5 DOSE/MDI IH SCH (08:11)
[2017-06-20] MEDS: GABAPENTIN 300 MG CAP PO SCH ×2 (09:05→20:06)
[2017-06-20] MEDS: METHOCARBAMOL 750 MG TAB PO SCH ×3 (09:05→20:06)
[2017-06-20] MEDS: predniSONE 5 MG TAB PO SCH (09:05)
[2017-06-20] MEDS: ATORVASTATIN CALCIUM 10 MG TAB PO SCH (09:06)
[2017-06-20] MEDS: PANTOPRAZOLE SODIUM 40 MG TAB PO SCH (09:06)
[2017-06-20] MEDS: SENNOSIDES/DOCUSATE SODIUM TAB PO SCH ×2 (09:06→20:06)
[2017-06-20] MEDS: ENOXAPARIN 40 MG/0.4 ML SYR SC SCH (09:09)
[2017-06-20] MEDS: POLYETHYLENE GLYCOL 3350 17 GM PKT PO SCH (11:09)
--- NOTE | 2017-06-20 13:26 | HOSPPROG ---
Hospitalist Progress Note Assessment/Plan: 81-year-old admitted with worsening acute on chronic low back pain. He underwent microdiskectomy on June 18 with good relief of pain. Currently pain controlled with fentanyl patch and Robaxin. Awaiting placement for rehab. # low back pain postop microdiskectomy, appreciate neurosurgery evaluation and follow-up. Overall recovering well from surgery and is awaiting rehab evaluation. Pain under good control. # COPD with chronic respiratory failure on 3 L of oxygen at home chronically. Unfortunately he is on long-term steroid use and is currently on his home doses # constipation # urinary retention, patient refusing straight catheterization will continue to measure residuals. # DVT currently on Lovenox Subjective: Patient new to me and chart reviewed. No complaints pain well controlled. Objective: Vital Signs Temp Pulse Resp BP Pulse Ox 36.7 C 65 12 134/67 H 96 06/20/17 00:17 06/20/17 08:13 06/20/17 08:13 06/20/17 00:17 06/20/17 08:13 Laboratory Results 06/19/17 04:37 06/19/17 04:37 06/19/17 06/20/17 06/21/17 05:59 05:59 05:59 Intake Total 1730 Output Total 1350 1000 Balance 1730 -1350 -1000 - Physical Exam Constitutional: no apparent distress, not in pain Eyes: PERRL Ears, Nose, Mouth, Throat: moist mucous membranes Cardiovascular: regular rate and rhythym, no murmur, rub, or gallop Respiratory: no respiratory distress, reduced air movement Gastrointestinal: normoactive bowel sounds, soft, non-tender abdomen, no palpable masses Genitourinary: no bladder fullness Skin: warm Musculoskeletal: generalized weakness Neurologic: No facial droop Psychiatric: interacting appropriately, not anxious ICD10 Worksheet Patient Problems: Problems Problem Status Onset Sciatica Acute
[2017-06-20] MEDS: TAMSULOSIN HCL 0.4 MG CAP PO SCH (20:06)
[2017-06-20] MEDS: PRAMIPEXOLE 1 MG TAB PO SCH (20:06)
[2017-06-20] MEDS: CALCIUM CARBONATE 500 MG TAB PO SCH (20:06)
[2017-06-20] MEDS: SODIUM CL NASAL GEL 14.1 GM TUBE TP SCH (20:08)
[2017-06-20] MEDS: oxyCODONE IR 5 MG TAB PO PRN (22:46)
[2017-06-21] MEDS: TIOTROPIUM INHALER 18 MCG/DOSE 5 DOSE/MDI IH SCH (08:11)
[2017-06-21] MEDS: FLUTICASONE/SALMETER 500/50MCG DISKUS IH SCH ×2 (08:12→20:27)
[2017-06-21] MEDS: LEVALBUTEROL 1.25 MG/3 ML DEYVIAL IH SCH ×3 (08:12→20:27)
--- NOTE | 2017-06-21 08:37 | SOAPPROG ---
SOAP Progress Note Assessment/Plan: Assessment: 81 yo M sp right L4/5 and right L1/2 far lateral microdiscectomy - POD#4 Plan: neuro: neuro intact, Pain well managed, mild pain in the left thigh today Lovenox OK, TEDs, SCDs Pain management - well controlled with fentanyl patch and scheduled robaxin, -- tylenol and NSAIDs OK if tolerated PT/OT please call with neuro changes OK for dc to rehab from NS perspective leave dressing on for 7 days and then can remove Will need post op visit in 2-3 weeks. 06/20/17 07:23 06/21/17 08:35 Subjective: doing well, no major complaints, but some new left thigh pain today Objective: Vital Signs Temp Pulse Resp BP Pulse Ox 36.4 C 58 L 12 130/58 H 98 06/21/17 08:00 06/21/17 08:14 06/21/17 08:14 06/21/17 08:00 06/21/17 08:14 Laboratory Results 06/19/17 04:37 06/19/17 04:37 06/20/17 06/21/17 06/22/17 05:59 05:59 05:59 Intake Total 750 Output Total 1350 2200 Balance -1350 -1450 AAOx3, full strength and sensation, no drift, dressing c/d/i ICD10 Worksheet Patient Problems: Problems Problem Status Onset Sciatica Acute
[2017-06-21] MEDS: ENOXAPARIN 40 MG/0.4 ML SYR SC SCH (09:05)
[2017-06-21] MEDS: POLYETHYLENE GLYCOL 3350 17 GM PKT PO SCH (09:05)
[2017-06-21] MEDS: GABAPENTIN 300 MG CAP PO SCH ×2 (09:05→19:58)
[2017-06-21] MEDS: predniSONE 5 MG TAB PO SCH (09:06)
[2017-06-21] MEDS: PANTOPRAZOLE SODIUM 40 MG TAB PO SCH (09:06)
[2017-06-21] MEDS: SENNOSIDES/DOCUSATE SODIUM TAB PO SCH ×2 (09:06→19:58)
[2017-06-21] MEDS: METHOCARBAMOL 750 MG TAB PO SCH ×3 (09:06→19:58)
[2017-06-21] MEDS: ATORVASTATIN CALCIUM 10 MG TAB PO SCH (09:07)
[2017-06-21] MEDS: oxyCODONE IR 5 MG TAB PO PRN (09:07)
--- NOTE | 2017-06-21 12:43 | HOSPPROG ---
Hospitalist Progress Note Assessment/Plan: 81-year-old admitted with worsening acute on chronic low back pain. He underwent microdiskectomy on June 18 with good relief of pain. Currently pain controlled with fentanyl patch and Robaxin. Awaiting placement for rehab.Timing of some left leg pain today. This may be related to his increased ambulation yesterday working with physical therapy and walking with his family. # low back pain postop microdiskectomy, appreciate neurosurgery evaluation and follow-up. Overall recovering well from surgery and is awaiting rehab evaluation. Pain under good control. # Left leg pain. We will watch for today. May be related to his increased activity over the last 24 hours. # COPD with chronic respiratory failure on 3 L of oxygen at home chronically. Unfortunately he is on long-term steroid use and is currently on his home doses # constipation # urinary retention, patient refusing straight catheterization will continue to measure residuals. # DVT currently on Lovenox Subjective: complains of left leg pain today no chest pain or shortness of breath. Objective: Vital Signs Temp Pulse Resp BP Pulse Ox 36.4 C 58 L 12 130/58 H 98 06/21/17 08:00 06/21/17 08:14 06/21/17 08:14 06/21/17 08:00 06/21/17 08:14 Laboratory Results 06/19/17 04:37 06/19/17 04:37 06/20/17 06/21/17 06/22/17 05:59 05:59 05:59 Intake Total 750 Output Total 1350 2200 Balance -1350 -1450 - Physical Exam Constitutional: no apparent distress Eyes: PERRL Ears, Nose, Mouth, Throat: moist mucous membranes, other ( Small blister area on his lower lip) Cardiovascular: regular rate and rhythym Respiratory: no respiratory distress, reduced air movement Psychiatric: interacting appropriately ICD10 Worksheet Patient Problems: Problems Problem Status Onset Sciatica Acute
[2017-06-21] MEDS: fentaNYL 25 MCG PATCH TD SCH (16:41)
--- NOTE | 2017-06-21 17:05 | ASMTCMCOM ---
CM Note CM Note Notes: Spoke with patient's daughter, Janell who is here from [place]. Janell was concerned about obtaining a hospital bed. Gave her a list of medical equipment companies she could call and inquire about equipment and prices. PT/OT are recommending inpatient rehab. Patient has been in a great deal of pain over the past year and has not been physically active as a result.Patient needs to get stronger with improved balance so he does not undo the corrective surgery he just had. Patient does not want to do rehab initially because he is worried about the cost. Daughter, Janell has talked to him as well as her mother to convey the importance of rehab to him. Patient's insurance is [employer] Medicare Complete which will need to be ok'ed by receiving facility. Janell wants to get all therapy recommendations and then will make decision about facility. We are awaiting Inpatient Rehab eval. CM will follow. Date Signed: 06/18/2017 03:35 PM Electronically Signed By:Juanis Patel
--- NOTE | 2017-06-21 17:07 | ASMTCMCOM ---
CM Note CM Note Notes: Met w/pt's and dtr at their request to discuss d/c options and inpt rehab (IR) vs SNF. Apparently they thought pt was going to [facility] after discussion w/ICU CM yesterday. However, after reviewing notes there was no mention of a SNF and PT/OT are recommending IR. Spoke with IR and they are following pt's progress. Spoke w/dtr again along w/OT to confirm IR need and family is now on board w/IR d/c when pt is medically ready. Pt will need insurance authorization prior to going to IR. Date Signed: 06/19/2017 03:15 PM Electronically Signed By:Shama Pacheco
--- NOTE | 2017-06-21 17:08 | ASMTCMCOM ---
CM Note CM Note Notes: CM met w/ pt and family for dispo planning. Pt will be discharged on Thursday to [facility] inpatient rehab. Daughter will transport as of today. CM obtained photocopy of pts insurance card (front/back). CM available for any changes. Date Signed: 06/20/2017 04:00 PM Electronically Signed By:Rosemarie Friedman
[2017-06-21] MEDS: CALCIUM CARBONATE 500 MG TAB PO SCH (19:58)
[2017-06-21] MEDS: TAMSULOSIN HCL 0.4 MG CAP PO SCH (19:58)
[2017-06-21] MEDS: PRAMIPEXOLE 1 MG TAB PO SCH (19:58)
[2017-06-21] MEDS: SODIUM CL NASAL GEL 14.1 GM TUBE TP SCH (20:01)
[2017-06-22] MEDS: GABAPENTIN 300 MG CAP PO SCH ×2 (08:54→20:51)
[2017-06-22] MEDS: ATORVASTATIN CALCIUM 10 MG TAB PO SCH (08:54)
[2017-06-22] MEDS: predniSONE 5 MG TAB PO SCH (08:55)
[2017-06-22] MEDS: ENOXAPARIN 40 MG/0.4 ML SYR SC SCH (08:56)
[2017-06-22] MEDS: PANTOPRAZOLE SODIUM 40 MG TAB PO SCH (08:56)
[2017-06-22] MEDS: METHOCARBAMOL 750 MG TAB PO SCH ×3 (08:56→20:51)
[2017-06-22] MEDS: LEVALBUTEROL 1.25 MG/3 ML DEYVIAL IH SCH ×3 (09:00→20:39)
[2017-06-22] MEDS: TIOTROPIUM INHALER 18 MCG/DOSE 5 DOSE/MDI IH SCH (09:00)
[2017-06-22] MEDS: FLUTICASONE/SALMETER 500/50MCG DISKUS IH SCH ×2 (09:00→20:39)
--- NOTE | 2017-06-22 10:41 | NEUSURGPN ---
Assessment/Plan: Assessment: 81 yo M sp right L4/5 and right L1/2 far lateral microdiscectomy - POD#5 Plan: neuro: neuro intact, Pain well managed, mild pain in left thigh yesterday is better today Lovenox OK, TEDs, SCDs Pain management - well controlled with fentanyl patch and scheduled robaxin, -- tylenol and NSAIDs OK if tolerated PT/OT please call with neuro changes Will dc today to [place] and follow up with Dr. Fabian once discharged from here in 2-3 weeks leave dressing on for 7 days and then can remove Will need post op visit in 2-3 weeks. Subjective: Patient awake, eating breakfast, with improved leg pain. No issues with incision -new dressing placed yesterday. Pain well controlled on current regimen. Some numbness in right and left leg intermittently but no weakness. Objective: NAD, VSS CN II-XII grossly intact BLE 5/5= Sensatio intact to lt touch Incision dressing clean, dry intact Catheter Insertion Date: 06/15/17 - Physician Discussed Patient with Dr.: Fabian Neurosurgery Physical Exam - Vitals, I&O, Labs I and O 06/21/17 06/22/17 06/23/17 05:59 05:59 05:59 Intake Total 750 550 350 Output Total 2200 2300 300 Balance -1450 -1750 50 Intake: Oral (ml) 750 550 350 Output: Urine (ml) 2200 2300 300 Toilet 1200 2300 300 Urinal 1000 Other: Intake Quantity Yes Sufficient Number of Voids Toilet 3 Number of Stools Urinal 1 Vital Signs Temp Pulse Resp BP Pulse Ox 36.9 C 78 16 151/65 H 95 06/22/17 07:58 06/22/17 09:04 06/22/17 09:04 06/22/17 07:58 06/22/17 09:04 Laboratory Results 06/19/17 04:37 06/19/17 04:37 ICD10 Worksheet Patient Problems: Problems Problem Status Onset Sciatica Acute
--- NOTE | 2017-06-22 10:43 | ASMTCMCOM ---
CM Note CM Note Notes: Case Management spoke with Shasha at [facility] Inpatient Rehab, auth has not yet been received by [employer]. Pulliam to work on authorization today. Met with patient, and daughter regarding dispo plan. Their #1 choice remains Inpt. Rehab, #2 choice [facility]. Spoke with Alesia at [facility] re: referral, info sent. Alesia to hold off on requesting authorization until Case Management receives final determination from [facility] Inpt. Rehab. CM will follow. Date Signed: 06/22/2017 10:42 AM Electronically Signed By:Gissel Hernandez
[2017-06-22] MEDS: SENNOSIDES/DOCUSATE SODIUM TAB PO SCH ×2 (12:17→20:51)
[2017-06-22] MEDS: POLYETHYLENE GLYCOL 3350 17 GM PKT PO SCH (12:17)
--- NOTE | 2017-06-22 13:28 | HOSPPROG ---
Hospitalist Progress Note Assessment/Plan: 81-year-old admitted with worsening acute on chronic low back pain. He underwent microdiskectomy on June 18 with good relief of pain. Currently pain controlled with fentanyl patch and Robaxin. Awaiting placement for rehab.Timing of some left leg pain today. This may be related to his increased ambulation yesterday working with physical therapy and walking with his family. # low back pain postop microdiskectomy, appreciate neurosurgery evaluation and follow-up. Overall recovering well from surgery and is awaiting rehab evaluation. Pain under good control. # Left leg pain. We will watch for today. May be related to his increased activity over the last 24 hours. # COPD with chronic respiratory failure on 3 L of oxygen at home chronically. Unfortunately he is on long-term steroid use and is currently on his home doses # constipation # urinary retention, patient refusing straight catheterization will continue to measure residuals. # DVT currently on Lovenox Subjective: Awaiting placement Objective: Vital Signs Temp Pulse Resp BP Pulse Ox 36.9 C 78 16 151/65 H 95 06/22/17 07:58 06/22/17 09:04 06/22/17 09:04 06/22/17 07:58 06/22/17 09:04 Laboratory Results 06/19/17 04:37 06/19/17 04:37 06/21/17 06/22/17 06/23/17 05:59 05:59 05:59 Intake Total 750 550 350 Output Total 2200 2300 300 Balance -1450 -1750 50 - Physical Exam Constitutional: no apparent distress Respiratory: no respiratory distress Psychiatric: interacting appropriately ICD10 Worksheet Patient Problems: Problems Problem Status Onset Sciatica Acute
--- NOTE | 2017-06-22 17:05 | ASMTCMCOM ---
CM Note CM Note Notes: Received a call from Shasha at [facility] Inpt. Rehab, [employer] did deny admission to acute rehab. [facility], they are able to accept on Thursday. Met with patient, and daughter, all in agreement with plan. Daughter would like to transport. Dr. Austin notified and will discharge patient Thursday. CM will follow. Date Signed: 06/22/2017 05:04 PM Electronically Signed By:Gissel Hernandez RN
[2017-06-22] MEDS: CALCIUM CARBONATE 500 MG TAB PO SCH (20:51)
[2017-06-22] MEDS: TAMSULOSIN HCL 0.4 MG CAP PO SCH (20:51)
[2017-06-22] MEDS: PRAMIPEXOLE 1 MG TAB PO SCH (20:51)
[2017-06-22] MEDS: SODIUM CL NASAL GEL 14.1 GM TUBE TP SCH (20:51)
[2017-06-23 08:07] VITALS: BP 139/67; TEMP 97.7
--- NOTE | 2017-06-23 08:33 | PDIAF ---
- Diagnosis Diagnosis: s/p back surgery, copd with chronic resp failure on oxygen. cognitive decl Code Status: Full Code - Medication Management Discharge Medications: Medications to Continue on Transfer Albuterol [Proventil Inhaler HFA (*)] 1 - 2 puffs IH Q4H PRN 05/19/17 [Last Taken 06/13/17] Calcium Carbonate [Oyster Shell Calcium 500 mg (*)] 1,000 mg PO HS 05/19/17 [ Last Taken 06/13/17] Cyanocobalamin [Vitamin B12 (*)] 1,000 mcg PO DAILY 05/19/17 [Last Taken ] Donepezil HCl [Aricept 5 MG (*)] 5 mg PO HS 05/19/17 [Last Taken 06/13/17] Fluticasone Nasal [Flonase Nasal [place]] 1 sprays NASAL DAILY PRN 05/19/17 [Last Taken 06/13/17] Fluticasone/Salmeter 500/50Mcg [Advair 500/50 (*)] 1 puffs IH BID 05/19/17 [ Last Taken 06/13/17] Gabapentin [Neurontin 300 MG (*)] 300 mg PO BID 05/19/17 [Last Taken 06/14/17] Herbals/Supplements -Info Only 1 ea PO DAILY 05/19/17 [Last Taken 06/13/17] Ipratropium 0.03% Nasal [Atrovent 0.03% Nasal (*)] 2 sprays EACHNARE TID PRN 05/28 [Last Taken 06/13/17] Lansoprazole [Lansoprazole 15 mg] 15 mg PO DAILY 05/19/17 [Last Taken 06/13/17] Levalbuterol 1.25 mg [Xopenex 1.25MG Neb (*)] 1.25 mg IH TID 05/19/17 [Last Taken 06/13/17] Loratadine [Claritin] 10 mg PO DAILY PRN 05/19/17 [Last Taken 06/13/17] Memantine HCl [Namenda 10 mg] 10 mg PO BID 05/19/17 [Last Taken 06/13/17] Multivitamins [Multivitamin (*)] 1 each PO HS 05/19/17 [Last Taken 06/13/17] Pramipexole Di-HCl [Mirapex 1 mg (*)] 1 mg PO HS 05/19/17 [Last Taken 06/13/17] Simvastatin [Zocor] 20 mg PO HS 05/19/17 [Last Taken 06/13/17] Sodium Cl Nasal Gel [[place] Saline Nasal Gel] 1 reg TP HS 05/19/17 [Last Taken 11/28] Tamsulosin HCl [Flomax 0.4 MG (*)] 0.4 mg PO HS 05/19/17 [Last Taken 06/13/17] Theophylline Anhydrous [Theophylline] 400 mg PO DAILY@12 05/19/17 [Last Taken ] Tiotropium Inhaler [Spiriva Inhaler (RX)] 1 inh IH DAILY 05/19/17 [Last Taken ] celeCOXIB [CeleBREX] 100 mg PO BID 05/19/17 [Last Taken 06/13/17] predniSONE 12.5 mg PO DAILY 05/19/17 [Last Taken 06/14/17] Acetaminophen [Tylenol ES 500 mg (*)] 1,000 mg PO Q6HRS PRN tab 06/23/17 [Last Taken Unknown] Methocarbamol [Robaxin 750 mg (*)] 750 mg PO TID tab 06/23/17 [Last Taken Unknown] Polyethylene Glycol 3350 [Miralax 17 gm (*)] 17 gm PO DAILY pkt 06/23/17 [Last Taken Unknown] fentaNYL [Duragesic 25 MCG Patch (*)] 25 mcg TD Q72H #2 patch 06/23/17 [Last Taken Unknown] oxyCODONE IR [Oxycodone Ir (*)] 2.5 - 5 mg PO Q4HRS PRN #30 tab 06/23/17 [Last Taken Unknown] Discharge Medications: Refer to the Discharge Home Medication list for PRN reason. - Orders Services needed: Registered Nurse, Certified Manager Operations, Master Business Analyst Ecommerce , Physical Therapy, Occupational Therapy, Speech Language Pathologist Diet Recommendation: no restrictions on diet Diet Texture: Regular Texture Diet Wound Care Instructions: per Dr. Pena. see attached Additional: Fu with Dr. Pena, neurosurgery per his instructions. - Follow Up Care
[2017-06-23] MEDS: POLYETHYLENE GLYCOL 3350 17 GM PKT PO SCH (09:09)
[2017-06-23] MEDS: predniSONE 5 MG TAB PO SCH (09:09)
[2017-06-23] MEDS: ENOXAPARIN 40 MG/0.4 ML SYR SC SCH (09:09)
[2017-06-23] MEDS: ATORVASTATIN CALCIUM 10 MG TAB PO SCH (09:09)
[2017-06-23] MEDS: GABAPENTIN 300 MG CAP PO SCH (09:09)
[2017-06-23] MEDS: PANTOPRAZOLE SODIUM 40 MG TAB PO SCH (09:09)
[2017-06-23] MEDS: METHOCARBAMOL 750 MG TAB PO SCH (09:10)
[2017-06-23] MEDS: SENNOSIDES/DOCUSATE SODIUM TAB PO SCH (09:10)
[2017-06-23] MEDS: FLUTICASONE/SALMETER 500/50MCG DISKUS IH SCH ×2 (09:37→10:55)
[2017-06-23] MEDS: LEVALBUTEROL 1.25 MG/3 ML DEYVIAL IH SCH ×2 (09:38→10:54)
--- NOTE | 2017-06-23 09:50 | ASMTCMCOM ---
CM Note CM Note Notes: Patient medically ready for discharge today. Spoke with Alesia at [facility], able to accept, all orders sent to [facility], confirmed received. Met with patient's and dtr, dtr will transport to [facility]. Discussed with RN who will call report. Date Signed: 06/23/2017 09:50 AM Electronically Signed By:Gissel Hernandez RN
[2017-06-23] MEDS: TIOTROPIUM INHALER 18 MCG/DOSE 5 DOSE/MDI IH SCH (10:54)
[2017-06-23 11:00] VITALS: PULSE 67; RESP 15; O2SAT 95
--- NOTE | 2017-06-23 11:23 | GDS ---
[f rep st] DISCHARGE SUMMARY DIAGNOSES: 1. Lumbar stenosis with radiculopathy, status post L1-2 micro diskectomy, L4-5 microdiskectomy. 2. Cognitive decline. 3. Chronic obstructive pulmonary disease with chronic respiratory failure. 4. Recurrent urinary retention/benign prostatic hypertrophy. 5. Constipation. 6. Hyperlipidemia. 7. Osteoporosis and osteopenia. 8. Restless legs syndrome. 9. Gastroesophageal reflux disease. CONSULTATIONS: General surgery, Dr. José Luis Fabian; critical care and pulmonology, Dr. Frank Austin, PROCEDURES DONE: 1. Lumbar spine, MRI. 2. Echocardiogram: Mild left ventricular hypertrophy, borderline reduced right ventricular systolic function. 3. Open L4-5 laminectomy and right partial medial facetectomy with L4-5 diskectomy and decompression of the L5 nerve root. HOSPITAL COURSE: The patient is an 81-year-old with a history of spinal stenosis with radiculopathy. He had planned to undergo back surgery later this month; however, had extreme back pain and groin p ain and came into the ER for pain management. During his admission, he was seen by Neurosurgery who felt necessary to take him to surgery this admission because he was intolerant and was unable to take care of himself due to pain. He underwent surgery on 06/18/2017. His main perioperative risk was his severe COPD and chronic resp iratory failure, which stayed relatively stable. Postoperatively, he had some pain control issues wh ich were dealt with to a point where he is fairly comfortable currently on his current regimen. He d oes have some cognitive decline and dementia, and he will be back on his medications after discharge of Namenda and Aricept. His COPD is relatively stable on 3 L per nasal cannula, and he will continue that as needed. His pain is currently well controlled. CONDITION ON DISCHARGE: Good. PHYSICAL EXAMINATION: VITAL SIGNS: Stable. Afebrile. Heart rate in the 60s. Blood pressure 139/6 7. He is 99% on 3 L. GENERAL APPEARANCE: He is alert and appropriate. HEART: Regular. LUNGS: D iminished bilaterally. ABDOMEN: Soft. EXTREMITIES: He has no edema. DISCHARGE MEDICATIONS: Please refer to discharge medication form. FOLLOWUP: He will be discharged to skilled rehab at [facility] and continue his current medic ations. He can follow up with his cotton breeder, Dr. Zurita, for any respiratory issues that might ar ise during his rehab stay. Total time spent with patient on day of discharge and coordination of care is 40 minutes. /[id number]/MODL
--- NOTE | 2017-06-23 14:43 | ASDISCHSUM ---
Discharge Information Plan Status:SNF Medically Cleared to Leave:06/23/2017 Discharge Date:06/23/2017 11:29 AM D/C Disposition:[facility] Facility ADT D/C Disposition:Home, Routine, Self-Care Projected Discharge Date:06/23/2017 12:00 AM Transportation at D/C:Wheelchair Van Discharge Delay Reason: Follow-Up Date:06/23/2017 12:00 AM Discharge Slot: Final Diagnosis: Placement Information Referral Type:*Custodial/SNF Referral ID:[id number] Provider Name:[facility] Address 1:[address] Address 2: City:[place] Selection Factors: State:[place] Patient Contact Information Contact Name:ELIZABETH Relationship: Address:[address] City:[place] Alternate Phone: [facility]/Zip Code:[place] [address] Email: Financial Information Financial Class:Medicare Advantage Plans Primary Plan Desc:[facility] Primary Plan Number:[id number] Secondary Plan Desc: Secondary Plan Number: Assessment Information [facility] CM Progress Note CM Note CM Note Notes: Spoke w/MD, pt in severe back pain and will need sx, on schedule for sx tomorrow. Pt lives w/ in home, dc needs unclear, [place] w/f. Date Signed: 06/15/2017 03:26 PM Electronically Signed By:Breonna Anders RN [facility] CM Progress Note CM Note CM Note Notes: RN came to CM w/ phone number to pt's daughter that called, . States can assist in getting pt hospital bed if needed, she is flying in tomorrow. Date Signed: 06/15/2017 04:44 PM Electronically Signed By:Breonna Anders RN [facility] [place] Progress Note CM Note CM Note Notes: Spoke with patient's daughter, Janell who is here from [place]. Janell was concerned about obtaining a hospital bed. Gave her a list of medical equipment companies she could call and inquire about equipment and prices. PT/OT are recommending inpatient rehab. Patient has been in a great deal of pain over the past year and has not been physically active as a result.Patient needs to get stronger with improved balance so he does not undo the corrective surgery he just had. Patient does not want to do rehab initially because he is worried about the cost. Daughter, Janell has talked to him as well as her mother to convey the importance of rehab to him. Patient's insurance is [facility] Medicare Complete which will need to be ok'ed by receiving facility. Janell wants to get all therapy recommendations and then will make decision about facility. We are awaiting Inpatient Rehab eval. CM will follow. Date Signed: 06/18/2017 03:35 PM Electronically Signed By:Juanis Patel LCSW [facility] [place] Progress Note CM Note CM Note Notes: Met w/pt's and dtr at their request to discuss d/c options and inpt rehab (IR) vs SNF. Apparently they thought pt was going to [facility] SNF after discussion w/ICU CM yesterday. However, after reviewing notes there was no mention of a SNF and PT/OT are recommending IR. Spoke with IR and they are following pt's progress. Spoke w/dtr again along w/OT to confirm IR need and family is now on board w/IR d/c when pt is medically ready. Pt will need insurance authorization prior to going to IR. Date Signed: 06/19/2017 03:15 PM Electronically Signed By:Shama Pacheco [facility] CM Progress Note CM Note CM Note Notes: CM met w/ pt and family for dispo planning. Pt will be discharged on Thursday to [facility] inpatient rehab. Daughter will transport as of today. CM obtained photocopy of pts insurance card (front/back). CM available for any changes. Date Signed: 06/20/2017 04:00 PM Electronically Signed By:JASWINDER Chapman [facility] CM Progress Note CM Note CM Note Notes: Case Management spoke with Shasha at [facility] Inpatient Rehab, auth has not yet been received by [employer] to work on authorization today. Met with patient, and daughter regarding dispo plan. Their #1 choice remains Inpt. Rehab, #2 choice [facility]. Spoke with Alesia at [facility] re: referral, info sent. Alesia to hold off on requesting authorization until Case Management receives final determination from [facility] In. Rehab. CM will follow. Date Signed: 06/22/2017 10:42 AM Electronically Signed By:Gissel Hernandez RN [facility] CM Progress Note CM Note CM Note Notes: Received a call from Shasha at [facility] Inpt. Rehab, [employer] did deny admission to acute rehab. Spoke with Alesia at [facility], they are able to accept on Thursday. Met with patient, and daughter, all in agreement with plan. Daughter would like to transport. Dr. Austin notified and will discharge patient Thursday morning. CM will follow. Date Signed: 06/22/2017 05:04 PM Electronically Signed By:Gissel Hernandez RN [facility] CM Progress Note CM Note CM Note Notes: Patient medically ready for discharge today. Spoke with Alesia at [facility], able to accept, all orders sent to [facility], confirmed received. Met with patient's and dtr, dtr will transport to [facility]. Discussed with RN who will call report. Date Signed: 06/23/2017 09:50 AM Electronically Signed By:Gissel Hernandez RN Intervention Information Intervention Type:*IM-Signed Date of Service:06/22/2017 02:21 PM Patient Type:Inpatient Staff Member:Emily Loja Hours: Discipline: Severity: Comment:
== END 2017-06-23 11:29 | DRG 519 ==
LOC: INTOOBSV 11:26 → F3E 12:20 → OBSVTOIN 06-15 09:58 → F2N 06-16 15:00 → F3N 06-18 17:48
PROVIDERS: ADMIT Student in an Organized Health Care Education/Training Program; ATTEND Neurological Surgery
PROC: 0ST20ZZ Resection of Lumbar Vertebral Disc, Open Approach (ICD-10-PCS; principal; 2017-06-15)
PROC: 01NB0ZZ Release Lumbar Nerve, Open Approach (ICD-10-PCS; principal; 2017-06-15)
DX: M51.16 Intervertebral disc disorders with radiculopathy, lumbar region (principal); M48.06 Spinal stenosis, lumbar region; M47.26 Other spondylosis with radiculopathy, lumbar region; G31.84 Mild cognitive impairment of uncertain or unknown etiology; J96.11 Chronic respiratory failure with hypoxia; J44.9 Chronic obstructive pulmonary disease, unspecified; K59.00 Constipation, unspecified; K21.9 Gastro-esophageal reflux disease without esophagitis; G25.81 Restless legs syndrome; N40.1 Benign prostatic hyperplasia with lower urinary tract symptoms; R33.8 Other retention of urine; E78.5 Hyperlipidemia, unspecified; Z79.52 Long term (current) use of systemic steroids
CPT/HCPCS: 92507-GN; 92523-GN; 96374; 97110-GP; 97116-GP; 97162-GP; 97164-GP; 97165-GO; 97530-GO; 97530-GP; 97535-GO; G0378; G8978-GP-CI; G8978-GP-CJ; G8978-GP-CK; G8979-GP-CI; G8980-GP-CI; G8987-GO-CK; G8988-GO-CI; G9165-GN-CI; G9166-GN-CH; J0171; J0690; J1100; J1170; J1650; J2270; J2405; J2550; J2704; J3010

== ENCOUNTER 2017-10-18 11:24 | Emergency (ER) | payer OTHER ==
[2017-10-18] MEDS ORDERED: IPRATROPIUM/ALBUTEROL 3 ML DEYVIAL ONE (11:28)
[2017-10-18] MEDS ORDERED: ALBUTEROL 3 ML DEYVIAL IH ONE (11:40)
[2017-10-18] MEDS ORDERED: IPRATROPIUM/ALBUTEROL 3 ML DEYVIAL IH ONE (11:42)
--- NOTE | 2017-10-18 11:58 | EDPHY ---
HPI/HX/ROS/PE/MDM Narrative: CHIEF COMPLAINT: Shortness of breath. HPI: This patient is an 82 y/o male with history of COPD arriving via EMS with family for evaluation of shortness of breath. Yesterday, he developed chills, which were resolved with a warm blanket. This morning, he woke with worsening shortness of breath. His family summoned EMS. He was given Solu-Medrol and a nebulizer treatment in transport which relieved his symptoms considerably. He is generally on 3L of oxygen. His family states he was not noted to be febrile at home. He denies chest pain, leg pain or swelling, vomiting, urinary complaints, or other associated symptoms. REVIEW OF SYSTEMS: Aside from elements discussed in the HPI, a comprehensive 10-point review of systems was reviewed and is negative. PMH: COPD, dementia, appendectomy, tonsillectomy and adenoidectomy, sciatic nerve pain, ulcerated scrotum SOCIAL HISTORY: Family at bedside. . Lives in [place]. Retired. PHYSICAL EXAM: General:Patient is alert, in no acute distress. ENT:Eyes are normal to inspection. ENT inspection normal. Neck: Normal inspection. Full range of motion. Respiratory:No respiratory distress. Decreased air movement bilaterally, no wheezes or rhonchi. Cardiovascular: Regular rate and rhythm. Strong peripheral pulses. Normal cap refill. Abdomen:The abdomen is nontender to palpation. There are no peritoneal signs. There are normal bowel sounds. Back: Normal to inspection. No tenderness to palpation. Skin: Normal color. No rash. Warm and dry. Extremities: Normal appearance. Full range of motion. Neuro: Oriented x3. Normal motor function. Normal sensory function. ED Course: 82 y/o male with history of COPD presents with worsening shortness of breath. On arrival, patient was tachycardic and using accessory muscles to breathe. Administered DuoNeb and albuterol nebulizer, which relieved the patient's symptoms considerably. Temperature 37.8 at triage. Exam reveals decreased air movement bilaterally, no wheezes or rhonchi. Plan for chest x-ray, labs including CBC, BMP, Troponin, flu swab. Troponin negative. Labs otherwise within normal limits, slightly elevated WBC. Chest x-ray negative for acute processes. 13:42 Reassessed patient. He is feeling considerably better. He was able to ambulate without difficulty and maintain adequate SpO2 on his regular 3LPM of oxygen. I offered admission, but the patient declines. He feels safe to be discharged home, and this is his preference. Plan to discharge home in good condition with prescription for Azithromycin. Follow up and return precautions discussed. He is comfortable with this plan. MDM: This patient presents with what appears to be a COPD exacerbation, as I see no signs of PE, PNA, influenza, sepsis or ACS. I encouraged him to be evaluated further in the hospital but he declines admission or further workup at this time. He is already on chronic prednisone. I will discharge him home with azithromycin and strict return precautions. - Data Points Imaging Results: Imaging Impressions Chest X-Ray 10/18/17 11:46 Impression: Emphysematous configuration to the chest with no definite acute cardiopulmonary abnormality. Mild scarring bilaterally, stable in appearance. Imaging: I viewed and interpreted images myself Laboratory Results: Laboratory Results 10/18/17 11:30 10/18/17 11:30 10/18/17 10/18/17 10/18/17 11:30 11:30 11:30 WBC 15.42 10^3/uL H 10^3/uL (3.80-9.50) RBC 4.47 10^6/uL 10^6/uL (4.40-6.38) Hgb 13.3 g/dL L g/dL (13.7-17.5) Hct 42.1 % % (40.0-51.0) MCV 94.2 fL fL (81.5-99.8) MCH 29.8 pg pg (27.9-34.1) MCHC 31.6 g/dL L g/dL (32.4-36.7) RDW 14.2 % % (11.5-15.2) Plt Count 238 10^3/uL 10^3/uL (150-400) MPV 10.0 fL fL (8.7-11.7) Neut % (Auto) 77.2 % H % (39.3-74.2) Lymph % (Auto) 13.9 % L % (15.0-45.0) Cass[place] % (Auto) 6.2 % % (4.5-13.0) Eos % (Auto) 1.6 % % (0.6-7.6) Baso % (Auto) 0.5 % % (0.3-1.7) Nucleat RBC Rel Count 0.0 % % (0.0-0.2) Absolute Neuts (auto) 11.93 10^3/uL H 10^3/uL (1.70-6.50) Absolute Lymphs (auto) 2.14 10^3/uL 10^3/uL (1.00-3.00) Absolute Monos (auto) 0.95 10^3/uL H 10^3/uL (0.30-0.80) Absolute Eos (auto) 0.24 10^3/uL 10^3/uL (0.03-0.40) Absolute Basos (auto) 0.07 10^3/uL 10^3/uL (0.02-0.10) Absolute Nucleated RBC 0.00 10^3/uL 10^3/uL (0-0.01) Immature Gran % 0.6 % % (0.0-1.1) Immature Gran # 0.09 10^3/uL 10^3/uL (0.00-0.10) Sodium 139 mEq/L mEq/L (134-144) Potassium 4.7 mEq/L mEq/L (3.5-5.2) Chloride 96 mEq/L L mEq/L (97-110) Carbon Dioxide 33 mEq/l H mEq/l (22-31) Anion Gap 10 mEq/L mEq/L (8-16) BUN 25 mg/dL H mg/dL (7-23) Creatinine 1.1 mg/dL mg/dL (0.7-1.3) Estimated GFR > 60 Glucose 80 mg/dL mg/dL (70-100) Calcium 9.6 mg/dL mg/dL (8.5-10.4) Troponin I 0.021 ng/mL ng/mL (0.000-0.034) Nasal Influenza A PCR NEGATIVE FOR FLU A (NEGATIVE) Nasal Influenza B PCR NEGATIVE FOR FLU B (NEGATIVE) Medications Given: Discontinued Medications Albuterol (Proventil Neb) 3 ml IH EDNOW ONE Stop: 10/18/17 11:41 Last Admin: 10/18/17 11:42 Dose: Not Given Albuterol/Ipratropium (Duoneb) 3 ml IH EDNOW ONE Stop: 10/18/17 11:43 Last Admin: 10/18/17 11:43 Dose: 3 ml General Time Seen by Provider: 10/18/17 11:29 Initial Vital Signs: Initial Vital Signs Temperature (C) 37.8 C 10/18/17 11:35 Heart Rate 109 H 10/18/17 11:35 Respiratory Rate 26 H 10/18/17 11:35 Blood Pressure 124/85 H 10/18/17 11:35 O2 Sat (%) 74 L 10/18/17 11:35 O2 Delivery Mode Nasal Cannula O2 (L/minute) 4 Allergies/Adverse Reactions: lorazepam [From Ativan] Allergy (Mild, Verified 06/14/17 10:43) confusion, restless leg Home Medications: Medication Instructions Recorded Albuterol [Proventil Inhaler HFA 1 - 2 puffs IH Q4H PRN 05/19/17 (*)] Calcium Carbonate [[place] 1,000 mg PO HS 05/19/17 Calcium 500 mg (*)] Cyanocobalamin [Vitamin B12 (*)] 1,000 mcg PO DAILY 05/19/17 Donepezil HCl [Aricept 5 MG (*)] 5 mg PO HS 05/19/17 Fluticasone Nasal [Flonase Nasal 1 sprays NASAL DAILY PRN 05/19/17 [place]] Fluticasone/Salmeter 500/50Mcg 1 puffs IH BID 05/19/17 [Advair 500/50 (*)] Gabapentin [Neurontin 300 MG (*)] 300 mg PO BID 05/19/17 Herbals/Supplements -Info Only 1 ea PO DAILY 05/19/17 Ipratropium 0.03% Nasal [Atrovent 2 sprays EACHNARE TID PRN 05/19/17 0.03% Nasal (*)] Lansoprazole [Lansoprazole 15 mg] 15 mg PO DAILY 05/19/17 Levalbuterol 1.25 mg [Xopenex 1.25 mg IH TID 05/19/17 1.25MG Neb (*)] Loratadine [Claritin] 10 mg PO DAILY PRN 05/19/17 Memantine HCl [Namenda 10 mg] 10 mg PO BID 05/19/17 Multivitamins [Multivitamin (*)] 1 each PO HS 05/19/17 Pramipexole Di-HCl [Mirapex 1 mg 1 mg PO HS 05/19/17 (*)] Simvastatin [Zocor] 20 mg PO HS 05/19/17 Sodium Cl Nasal Gel [[place] Sal[place] 1 reg TP HS 05/19/17 Nasal Gel] Tamsulosin HCl [Flomax 0.4 MG (*)] 0.4 mg PO HS 05/19/17 Theophylline Anhydrous 400 mg PO DAILY@12 05/19/17 [Theophylline] Tiotropium Inhaler [Spiriva 1 inh IH DAILY 05/19/17 Inhaler (RX)] predniSONE 12.5 mg PO DAILY 05/19/17 Acetaminophen [Tylenol ES 500 mg 1,000 mg PO Q6HRS PRN tab 06/23/17 (*)] Polyethylene Glycol 3350 [Miralax 17 gm PO DAILY pkt 06/23/17 17 gm (*)] oxyCODONE IR [Oxycodone Ir (*)] 2.5 - 5 mg PO Q4HRS PRN #30 tab 06/23/17 AZITHROMYCIN [Z-PACK] 250 mg PO DAILY 5 Days packet 10/18/17 Departure - Departure Disposition: Home, Routine, Self-Care Clinical Impression: Chronic obstructive pulmonary disease with acute exacerbation Condition: Good Instructions: COPD (Chronic Obstructive Pulmonary Disease) (ED) Additional Instructions: 1. Follow up with your primary care provider for further evaluation. 2. Take Azithromycin as prescribed. It is important to finish your entire course of antibiotics even if you are feeling better. 3. Return to the emergency department for fever, chest pain, worsening shortness of breath, or other worsening of condition or concerns. Referrals: Sara Alexander MD [[facility] [place] Primary Care Provider] - As per Instructions Prescriptions: AZITHROMYCIN [Z-PACK] 250 mg PO DAILY 5 Days packet Report Scribed for: Drew Varma Report Scribed by: Phyllis Otto Date of Report: 10/18/17 Time of Report: 12:38 Physician Review and Approval Statement: Portions of this note were transcribed by an ED scribe. I personally performed the history, physical exam, and medical decision making; and confirm the accuracy of the information in the transcribed note.
[2017-10-18 12:05] LABS: PLATELET COUNT 238 10^3/uL (150-400)
[2017-10-18] MEDS ORDERED: AZITHROMYCIN 250 MG TAB PO ONE (13:52)
[2017-10-18 14:16] VITALS: BP 114/85; PULSE 69; RESP 18; TEMP 99; O2SAT 94
== END 2017-10-18 14:14 | disposition home or self-care (01) ==
LOC: EDUNIT#
DX: J44.1 Chronic obstructive pulmonary disease with (acute) exacerbation (principal)

== ENCOUNTER → 2017-11-14 | Outpatient (CLI) | payer OTHER | LOC: FIMAGING 11:41 | PROVIDERS: ATTEND Orthopaedic Surgery Hand Surgery | DX: M75.122 Complete rotator cuff tear or rupture of left shoulder, not specified as traumatic (principal); S46.212A Strain of muscle, fascia and tendon of other parts of biceps, left arm, initial encounter; S43.432A Superior glenoid labrum lesion of left shoulder, initial encounter ==

== ENCOUNTER 2017-12-29 05:30 | Day surgery (SDC) | payer OTHER ==
[2017-12-29] MEDS ORDERED: LR 1,000 ML IV ONE (05:51)
[2017-12-29] MEDS ORDERED: LIDOCAINE 1% 2 ML INJ ID PRN (05:51)
[2017-12-29] MEDS ORDERED: LIDOCAINE 1% 2 ML INJ ONE (05:55)
[2017-12-29 06:26] VITALS: PULSE 74
--- NOTE | 2017-12-29 06:49 | PDANEPAE ---
ANE Past Medical History - Cardiovascular History Hx Hypertension: No Hx Arrhythmias: No Hx Chest Pain: No Hx Coronary Artery / Peripheral Vascular Disease: No Hx CHF / Valvular Disease: No Hx Palpitations: No - Pulmonary History Hx COPD: Yes Hx Asthma/Reactive Airway Disease: No Hx Recent Upper Respiratory Infection: Yes Hx Oxygen in Use at Home: Yes O2 in Use at Home (L/minute): 3-4 L O2 ATC Hx Sleep Apnea: No Sleep Apnea Screening Result - Last Documented: Negative Pulmonary History Comment: 12-16-17 TREATED WITH Quit smoking ~2002. ANTIBIOTIC "due to congestion". EMPHYSEMA. occ cough/BRONCHITIS. pneumonia ~ 2010 - Neurologic History Hx Cerebrovascular Accident: No Hx Seizures: No Hx Dementia: No Neurologic History Comment: on Memantine for short term memery enhancement - Endocrine History Hx Diabetes: No Hypothyroid: No Hyperthyroid: No Obesity: no - Renal History Hx Renal Disorders: Yes Renal History Comment: BPH - Liver History Hx Hepatic Disorders: No - Neurological & Psychiatric Hx Hx Neurological and Psychiatric Disorders: Yes Neurological / Psychiatric History Comment: denies DEMENTIA now- pt put himself on Memantine to help short term memory. Hx of low back pain -on Gabapentin. - Cancer History Hx Cancer: No - Congenital Disorder History Hx Congenital Disorders: No - GI History GERD: mild Hx Gastrointestinal Disorders: Yes Gastrointestinal History Comment: on Rx to prevent GERD - Other Health History Other Health History: L shoulder pain -rotator cuff tear;. Restles leg syndrome. SPINAL STENOSIS. PREV AWILDA - Chronic Pain History Chronic Pain: Yes (L shoulder) - Surgical History Prior Surgeries: lumbar laminectomy 06-17-17. JONATHON CATARACT. APPENDECTOMY. ING HERNIA. TONSILLECTOMY & ADENOIDS ANE Review of Systems Review of Systems: - Exercise capacity METS (RN): 4 METS - Systems Respiratory: Reports: cough, wheezing ANE Patient History - Allergies Allergies/Adverse Reactions: lorazepam [From Ativan] Allergy (Mild, Verified 12/23/17 11:07) confusion, restless leg - Home Medications Home Medications: Albuterol [Proventil Inhaler HFA (*)] 1 - 2 puffs IH Q4H PRN 05/19/17 [Last Taken 12/29/17 05:00] Fluticasone Nasal [Flonase Nasal [place]] 1 sprays NASAL DAILY PRN 05/19/17 [Last Taken 12/28/17] Fluticasone/Salmeter 500/50Mcg [Advair 500/50 (*)] 1 puffs IH BID 05/19/17 [ Last Taken 12/29/17 05:00] Gabapentin [Neurontin 300 MG (*)] 300 mg PO BID 05/19/17 [Last Taken 12/28/17] Loratadine [Claritin] 10 mg PO DAILY PRN 05/19/17 [Last Taken 12/28/17] Memantine HCl [Namenda 10 mg] 10 mg PO BID 05/19/17 [Last Taken 12/28/17] Multivitamins [Multivitamin (*)] 1 each PO HS 05/19/17 [Last Taken 12/22/17] Pramipexole Di-HCl [Mirapex 1 mg (*)] 1 mg PO HS 05/19/17 [Last Taken 12/28/17] Simvastatin [Zocor] 20 mg PO HS 05/19/17 [Last Taken 12/28/17] Tamsulosin HCl [Flomax 0.4 MG (*)] 0.4 mg PO HS 05/19/17 [Last Taken 12/28/17] Tiotropium Inhaler [Spiriva Inhaler (RX)] 1 inh IH DAILY 05/19/17 [Last Taken 05:00] predniSONE 12.5 mg PO DAILY 05/19/17 [Last Taken 12/29/17 05:00] Donepezil HCl 12/23/17 [Last Taken 12/28/17] - NPO status NPO Since - Liquids (Date): 12/28/17 NPO Since - Liquids (Time): 21:00 NPO Since - Solids (Date): 12/28/17 NPO Since - Solids (Time): 17:00 - Smoking Hx Smoking Status: Former smoker - Alcohol Use Alcohol Use: Occasionally - Family Anes Hx Family Anes Hx: neg - N/A Family Hx Anesthesia Complications: NONE ANE Labs/Vital Signs - Vital Signs Blood Pressure: 144/83 Heart Rate: 74 Respiratory Rate: 18 O2 Sat (%): 97 Height: 175.26 cm Weight: 68.039 kg ANE Anesthesia Plan Anesthesia Plan: GA w LMA
[2017-12-29] MEDS ORDERED: ceFAZolin 2 GM/SWFI 2 GM/20 ML SYR IVP ONE (06:51)
--- NOTE | 2017-12-29 06:51 | PDHPUP ---
History & Physical Update H&P update statement: This history and physical update is based on an assessment of the patient which was completed after admission or registration (within 24 hours), but prior to the surgery/procedure. RRR CTAB H&P update: H&P reviewed & patient examined, no change in patient's condition since H&P completed
[2017-12-29] MEDS ORDERED: EPINEPHrine 30 MG/30 ML MDV (0.1 MG/0.1 ML) ONE ×2 (07:07→09:50)
[2017-12-29] MEDS ORDERED: PROPOFOL 200 MG/20 ML VIAL ONE (07:07)
[2017-12-29] MEDS ORDERED: fentaNYL 100 MCG/2 ML INJ ONE ×2 (07:07→08:07)
[2017-12-29] MEDS ORDERED: LIDOCAINE 2% 5 ML SDV ONE ×2 (07:08→07:17)
[2017-12-29] MEDS ORDERED: DEXAMETHASONE 4 MG/ML VIAL ONE (07:08)
[2017-12-29] MEDS ORDERED: METOCLOPRAMIDE 10 MG/2 ML VIAL ONE ×2 (07:08)
[2017-12-29] MEDS ORDERED: ROPIVACAINE HCL 150 MG/30 ML INJ ONE (07:08)
[2017-12-29] MEDS ORDERED: RANITIDINE 50 MG/2 ML VIAL ONE (07:08)
[2017-12-29] MEDS ORDERED: LIDO/EPI 1% **for epidural** 30 ML SDV ONE (07:30)
[2017-12-29] MEDS ORDERED: LR 500 ML IV PRN (08:12)
[2017-12-29] MEDS ORDERED: ONDANSETRON 4 MG/2 ML VIAL IVP PRN (08:12)
[2017-12-29] MEDS ORDERED: PHENYLEPHRINE HCL 100 MCG/ML SYR IVP PRN (08:12)
[2017-12-29] MEDS ORDERED: HYDROCODONE/APAP 5/325 TAB PO PRN (08:12)
[2017-12-29] MEDS ORDERED: OXYCODONE/APAP 5/325 TAB PO PRN (08:12)
[2017-12-29] MEDS ORDERED: fentaNYL 100 MCG/2 ML INJ IVP PRN (08:12)
[2017-12-29] MEDS ORDERED: ACETAMINOPHEN 500 MG TAB PO PRN (08:12)
[2017-12-29] MEDS ORDERED: NALOXONE HCL 0.4 MG/ML INJ IVP PRN (08:12)
[2017-12-29] MEDS ORDERED: epHEDrine SULFATE 10 MG/ML SYR IVP PRN (08:12)
[2017-12-29] MEDS ORDERED: ALBUTEROL 3 ML DEYVIAL IH PRN (08:12)
[2017-12-29] MEDS: LIDOCAINE 1% 300 MG/30 ML SDV ONE ×2 (08:51→10:55)
[2017-12-29] MEDS: BUPIVACAINE 0.5% 30 ML SDV ONE ×2 (08:52→10:55)
[2017-12-29] MEDS ORDERED: METOPROLOL TARTRATE 5 MG/5 ML INJ ONE (09:21)
--- NOTE | 2017-12-29 11:11 | POSTOPPROG ---
Post Op Note Date of Operation: 12/29/17 Surgeon: Leonel Clay Marzipan Maker: Marie Hernandez PA-C Anesthesia: GET(General Endotracheal) Pre-op Diagnosis: left shoulder rotator cuff tear Post-op Diagnosis: left shoulder rotator cuff tear Indication: left shoulder rotator cuff tear Procedure: left shoulder arthroscopy with labral debridement, SAD, RCR Inf/Abcess present in the surg proc area at time of surgery?: No EBL: Minimal
[2017-12-29 12:38] VITALS: RESP 16
[2017-12-29 12:47] VITALS: BP 171/99; O2SAT 92
[2017-12-29 12:48] VITALS: TEMP 97.5
--- NOTE | 2017-12-29 19:54 | GOP ---
[f rep st] OPERATIVE REPORT DATE OF OPERATION: 12/29/2017 SURGEON: Leonel Clay MD SHIPPING AND RECEIVING COORDINATOR: YENIFER. PREOPERATIVE DIAGNOSIS: 1. Left shoulder subacromial impingement. 2. Left shoulder acromioclavicular joint arthritis. 3. Left shoulder degenerative labral tears. 4. Left shoulder full-thickness subscapularis tear. 5. Left shoulder full-thickness supraspinatus tear. POSTOPERATIVE DIAGNOSIS: 1. Left shoulder subacromial impingement. 2. Left shoulder acromioclavicular joint arthritis. 3. Left shoulder degenerative labral tears. 4. Left shoulder full-thickness subscapularis tear. 5. Left shoulder full-thickness supraspinatus tear. PROCEDURE PERFORMED: Left shoulder arthroscopy with subacromial decompression, distal clavicle excis ion, arthroscopic subscapularis repair and arthroscopic supraspinatus repair. FINDINGS: ESTIMATED BLOOD LOSS: 4 cc. DESCRIPTION OF PROCEDURE: A very pleasant 82-year-old male who underwent a left shoulder arthroscopy with subacromial fusion for decompression, distal clavicle excision, labral debridement, arthroscopi c subscapularis and arthroscopic supraspinatus repair. COMPLICATIONS: None. IMPLANTS: Two Arthrex 4.75 mm BioComposite SwiveLock anchors with #2 FiberWire for repair of the sub scapularis, and 1 Arthrex 5.5 mm BioComposite corkscrew triple loaded anchor, and 1 Arthrex 5.5 mm Bi oComposite corkscrew double loaded anchor. /[id number]/MODL
== END 2017-12-29 13:03 | disposition home or self-care (01) ==
LOC: FSGY 05:30
PROVIDERS: ATTEND Orthopaedic Surgery Hand Surgery
PROC: 0RNH4ZZ Release Left Acromioclavicular Joint, Percutaneous Endoscopic Approach (ICD-10-PCS; principal; 2017-12-29 07:15)
PROC: 0LQ24ZZ Repair Left Shoulder Tendon, Percutaneous Endoscopic Approach (ICD-10-PCS; principal; 2017-12-29 07:15)
PROC: 0PBB4ZZ Excision of Left Clavicle, Percutaneous Endoscopic Approach (ICD-10-PCS; principal; 2017-12-29 07:15)
DX: S46.012A Strain of muscle(s) and tendon(s) of the rotator cuff of left shoulder, initial encounter (principal); S43.492A Other sprain of left shoulder joint, initial encounter; M25.812 Other specified joint disorders, left shoulder; M19.012 Primary osteoarthritis, left shoulder; J44.9 Chronic obstructive pulmonary disease, unspecified; E78.00 Pure hypercholesterolemia, unspecified; E78.5 Hyperlipidemia, unspecified; K21.9 Gastro-esophageal reflux disease without esophagitis; N40.0 Benign prostatic hyperplasia without lower urinary tract symptoms; W19.XXXA Unspecified fall, initial encounter; Y99.9 Unspecified external cause status
CPT/HCPCS: C1713; J0171; J0690; J1100; J2704; J2765; J2780; J2795; J3010

== ENCOUNTER 2017-12-31 09:20 | Inpatient (IN) | payer OTHER ==
--- NOTE | 2017-12-31 09:33 | EDPHY ---
H & P Time Seen by Provider: 12/31/17 09:23 HPI/ROS: CHIEF COMPLAINT: Short of breath and coughing HISTORY OF PRESENT ILLNESS: Patient had left rotator cuff surgery [address] Clay. He was found altered this morning with his oxygen off and has also been short of breath and coughing for the last 2 days. Subjective fever today. Worse with exertion. He now is mental status back to normal but still has fever and some associated burning with urination. Symptoms moderate to severe. Not associated with chest pain. Worse with coughing. REVIEW OF SYSTEMS: Eye: no change in vision ENT: no sore throat Cardiac: no chest pain or syncope Pulmonary: No hemoptysis or sputum production Abdomen: no vomiting, diarrhea, abdominal pain. Decreased oral intake. Musculoskeletal: Left shoulder pain but it is tolerable after surgery and unchanged Skin: Bruising around the left shoulder after surgery Neuro: no headache Constitutional: HPI : HPI A comprehensive 10 point review of systems is otherwise negative aside from elements mentioned in the history of present illness. PAST MEDICAL HISTORY: COPD on daily azithromycin since December 15, treated by Dr. Zurita Social history: Here with family, and daughter General Appearance: Alert and conversant, cooperative. Eyes: No scleral icterus. ENT, Mouth: Dry mucous membranes. Respiratory: Bilateral wheezing with prolonged expiratory phase. Cardiovascular: Regular rate and rhythm. Gastrointestinal: Abdomen is soft and non tender. Neurological: Alert, face symmetric, normal motor and sensory in extremities. Skin: Bruising around the left shoulder but not warm to the touch and no drainage from the dressing. Musculoskeletal: Left shoulder in a postop sling. Psychiatric: Not agitated. Emergency Department course/MDM: Patient is febrile and tachycardic, has SIRS criteria. DuoNeb and supplemental oxygen. Chest x-ray, UA, lactate screening, IV fluids. IV pain medication for postop shoulder. 1224: Results discussed with family, flu is negative. Chest x-ray does not show pneumonia but he is clinically very dry and dehydrated. Will treat with antibiotics for a wet cough febrile and SIRS criteria. Zosyn chosen for broad- spectrum coverage in a patient with chronic macrolide prophylaxis, and medication interaction contraindication to quinolones. Discussed with Emdur 1226, admit to hospitalist service. Does not have septic shock or severe sepsis. His orthopedist is informed, clinically does not appear to be septic joint or postop cellulitis. IV solumedrol 125mg. Smoking Status: Former smoker Constitutional: Initial Vital Signs Temperature (C) 38 C 12/31/17 09:20 Heart Rate 111 H 12/31/17 09:20 Respiratory Rate 24 H 12/31/17 09:20 Blood Pressure 146/73 H 12/31/17 09:20 O2 Sat (%) 90 L 12/31/17 09:20 O2 Delivery Mode Nasal Cannula O2 (L/minute) 2 Allergies/Adverse Reactions: lorazepam [From Ativan] Allergy (Mild, Verified 12/23/17 11:07) confusion, restless leg Home Medications: Medication Instructions Recorded Albuterol [Proventil Inhaler HFA 1 - 2 puffs IH Q4H PRN 05/19/17 (*)] Fluticasone Nasal [Flonase Nasal 1 sprays NASAL DAILY PRN 05/19/17 [place]] Fluticasone/Salmeter 500/50Mcg 1 puffs IH BID 05/19/17 [Advair 500/50 (*)] Gabapentin [Neurontin 300 MG (*)] 300 mg PO BID 05/19/17 Loratadine [Claritin] 10 mg PO DAILY PRN 05/19/17 Memantine HCl [Namenda 10 mg] 10 mg PO BID 05/19/17 Multivitamins [Multivitamin (*)] 1 each PO HS 05/19/17 Pramipexole Di-HCl [Mirapex 1 mg 0.5 - 1 mg PO HS 05/19/17 (*)] Simvastatin [Zocor] 20 mg PO HS 05/19/17 Tamsulosin HCl [Flomax 0.4 MG (*)] 0.4 mg PO HS 05/19/17 Tiotropium Inhaler [Spiriva 1 inh IH HS 05/19/17 Inhaler (RX)] predniSONE 12.5 mg PO DAILY 05/19/17 Acetaminophen [Tylenol ES 500 mg 1,000 mg PO Q6HRS PRN tab 06/23/17 (*)] Donepezil HCl [Aricept 5 MG (*)] 5 mg PO HS #0 12/23/17 Azithromycin 250 mg PO DAILY 12/31/17 Cyclobenzaprine [Flexeril 10 MG 5 - 10 mg PO Q8HRS PRN 03/22/18 (*)] Lansoprazole [Prevacid] 15 mg PO DAILY 12/31/17 Levalbuterol 1.25 mg [Xopenex 1.25 mg IH Q6HRS PRN 12/31/17 1.25MG Neb (*)] oxyCODONE HCL [Oxycontin] 10 mg PO BID PRN 12/31/17 oxyCODONE IR [Oxycodone Ir (*)] 5 - 10 mg PO Q4HRS PRN 12/31/17 Medical Decision Making - Diagnostics Imaging Results: Imaging Impressions Chest X-Ray 12/31/17 09:34 Impression: Emphysematous configuration to the chest. Interstitial prominence at both lung bases, which is stable from October, but increased from 2015, and could be progression of underlying interstitial lung disease. Other chronic findings as above. Imaging: I viewed and interpreted images myself Differential Diagnosis: Differential for fever considered including but not limited to UTI, pneumonia, atelectasis, sepsis. Consult/Admit Bed Type: [place] [id number] - Data Points Laboratory Results: Laboratory Results 12/31/17 09:10 12/31/17 09:10 12/31/17 12/31/17 12/31/17 12:05 12:00 09:32 WBC RBC Hgb Hct MCV MCH MCHC RDW Plt Count MPV Neut % (Auto) Lymph % (Auto) [place] % (Auto) Eos % (Auto) Baso % (Auto) Nucleat RBC Rel Count Absolute Neuts (auto) Absolute Lymphs (auto) Absolute Monos (auto) Absolute Eos (auto) Absolute Basos (auto) Absolute Nucleated RBC Immature Gran % Immature Gran # PT INR APTT VBG Lactic Acid Sodium Potassium Chloride Carbon Dioxide Anion Gap BUN Creatinine Estimated GFR Glucose Calcium Total Bilirubin Procalcitonin Pending Urine Color YELLOW Urine Appearance CLEAR Urine pH 5.0 (5.0-7.5) Ur Specific [place] 1.014 (1.002-1.030) Urine Protein NEGATIVE (NEGATIVE) Urine Ketones NEGATIVE (NEGATIVE) Urine Blood NEGATIVE (NEGATIVE) Urine Nitrate NEGATIVE (NEGATIVE) Urine Bilirubin NEGATIVE (NEGATIVE) Urine Urobilinogen NEGATIVE EU EU (0.2-1.0) Ur Leukocyte Esterase NEGATIVE (NEGATIVE) Urine Glucose NEGATIVE (NEGATIVE) Nasal Influenza A PCR NEGATIVE FOR FLU A (NEGATIVE) Nasal Influenza B PCR NEGATIVE FOR FLU B (NEGATIVE) 0312/31/17 12/31/17 09:10 09:10 09:10 WBC 12.11 10^3/uL H 10^3/uL (3.80-9.50) RBC 4.06 10^6/uL L 10^6/uL (4.40-6.38) Hgb 12.2 g/dL L g/dL (13.7-17.5) Hct 39.1 % L % (40.0-51.0) MCV 96.3 fL fL (81.5-99.8) MCH 30.0 pg pg (27.9-34.1) MCHC 31.2 g/dL L g/dL (32.4-36.7) RDW 14.5 % % (11.5-15.2) Plt Count 212 10^3/uL 10^3/uL (150-400) MPV 10.0 fL fL (8.7-11.7) Neut % (Auto) 79.0 % H % (39.3-74.2) Lymph % (Auto) 10.7 % L % (15.0-45.0) [place] % (Auto) 7.3 % % (4.5-13.0) Eos % (Auto) 1.7 % % (0.6-7.6) Baso % (Auto) 0.4 % % (0.3-1.7) Nucleat RBC Rel Count 0.0 % % (0.0-0.2) Absolute Neuts (auto) 9.56 10^3/uL H 10^3/uL (1.70-6.50) Absolute Lymphs (auto) 1.30 10^3/uL 10^3/uL (1.00-3.00) Absolute Monos (auto) 0.89 10^3/uL H 10^3/uL (0.30-0.80) Absolute Eos (auto) 0.20 10^3/uL 10^3/uL (0.03-0.40) Absolute Basos (auto) 0.05 10^3/uL 10^3/uL (0.02-0.10) Absolute Nucleated RBC 0.00 10^3/uL 10^3/uL (0-0.01) Immature Gran % 0.9 % % (0.0-1.1) Immature Gran # 0.11 10^3/uL H 10^3/uL (0.00-0.10) PT 12.6 SEC SEC (12.0-15.0) INR 0.92 (0.83-1.16) APTT 24.9 SEC SEC (23.0-38.0) VBG Lactic Acid 1.2 mmol/L mmol/L (0.7-2.1) Sodium Potassium Chloride Carbon Dioxide Anion Gap BUN Creatinine Estimated GFR Glucose Calcium Total Bilirubin Procalcitonin Urine Color Urine Appearance Urine pH Ur Specific [place] Urine Protein Urine Ketones Urine Blood Urine Nitrate Urine Bilirubin Urine Urobilinogen Ur Leukocyte Esterase Urine Glucose Nasal Influenza A PCR Nasal Influenza B PCR 12/31/17 09:10 WBC RBC Hgb Hct MCV MCH MCHC RDW Plt Count MPV Neut % (Auto) Lymph % (Auto) [place] % (Auto) Eos % (Auto) Baso % (Auto) Nucleat RBC Rel Count Absolute Neuts (auto) Absolute Lymphs (auto) Absolute Monos (auto) Absolute Eos (auto) Absolute Basos (auto) Absolute Nucleated RBC Immature Gran % Immature Gran # PT INR APTT VBG Lactic Acid Sodium 142 mEq/L mEq/L (135-145) Potassium 4.5 mEq/L mEq/L (3.5-5.2) Chloride 101 mEq/L mEq/L (97-110) Carbon Dioxide 34 mEq/l H mEq/l (22-31) Anion Gap 7 mEq/L L mEq/L (8-16) BUN 28 mg/dL H mg/dL (7-23) Creatinine 1.1 mg/dL mg/dL (0.7-1.3) Estimated GFR > 60 Glucose 78 mg/dL mg/dL (70-100) Calcium 8.0 mg/dL L mg/dL (8.5-10.4) Total Bilirubin 0.4 mg/dL mg/dL (0.1-1.4) Procalcitonin Urine Color Urine Appearance Urine pH Ur Specific [place] Urine Protein Urine Ketones Urine Blood Urine Nitrate Urine Bilirubin Urine Urobilinogen Ur Leukocyte Esterase Urine Glucose Nasal Influenza A PCR Nasal Influenza B PCR Medications Given: Levalbuterol (Xopenex 1.25mg Neb) 1.25 mg IH QID RENEE Stop: 06/29/18 15:59 Last Admin: 12/31/17 16:37 Dose: 1.25 mg Discontinued Medications Albuterol (Proventil Neb) 3 ml IH EDNOW ONE Stop: 12/31/17 09:35 Last Admin: 12/31/17 09:40 Dose: 3 ml Albuterol/Ipratropium (Duoneb) 3 ml IH EDNOW ONE Stop: 12/31/17 09:35 Last Admin: 12/31/17 09:40 Dose: 3 ml Hydromorphone HCl (Dilaudid) 0.5 mg IVP EDNOW ONE Stop: 12/31/17 09:48 Last Admin: 12/31/17 10:21 Dose: 0.5 mg Sodium Chloride (Ns) 1,000 mls @ 0 mls/hr IV ONCE ONE; Wide Open PRN Reason: Protocol Stop: 12/31/17 09:35 Last Admin: 12/31/17 09:39 Dose: 1,000 mls Sodium Chloride (Ns) 1,000 mls @ 0 mls/hr IV EDNOW ONE; Wide Open PRN Reason: Protocol Stop: 12/31/17 10:56 Last Admin: 12/31/17 11:13 Dose: 1,000 mls Piperacillin/Tazobactam/Dextrose (Zosyn 3.375 Gm (Premix)) 50 mls @ 100 mls/hr IV EDNOW ONE PRN Reason: Protocol Stop: 12/31/17 12:54 Last Admin: 12/31/17 12:41 Dose: 50 mls Methylprednisolone Sodium Succinate (Solu-Medrol) 125 mg IVP EDNOW ONE Stop: 12/31/17 12:30 Last Admin: 12/31/17 12:43 Dose: 125 mg Departure - Departure Disposition: [facility] Acute Clinical Impression: COPD exacerbation, Bronchitis Condition: Fair
[2017-12-31] MEDS ORDERED: IPRATROPIUM/ALBUTEROL 3 ML DEYVIAL IH ONE (09:34)
[2017-12-31] MEDS ORDERED: NS 1,000 ML IV ONE ×2 (09:34→10:55)
[2017-12-31] MEDS ORDERED: ALBUTEROL 3 ML DEYVIAL IH ONE (09:34)
[2017-12-31 09:41] LABS: PLATELET COUNT 212 10^3/uL (150-400)
[2017-12-31] MEDS ORDERED: HYDROmorphONE/DILAUDID 2 MG/ML INJ IVP ONE (09:47)
[2017-12-31 09:49] LABS: INR 0.92 (0.83-1.16); PROTIME(PATIENT) 12.6 SEC (12.0-15.0)
[2017-12-31] MEDS ORDERED: PIPERACILLIN/TAZO 3.375 GM/DEX 50 ML IV ONE (12:25)
[2017-12-31] MEDS ORDERED: methylPREDNISolone SOD SUCC 125 MG/2 ML VIAL IVP ONE (12:29)
[2017-12-31] MEDS ORDERED: ALBUTEROL 3 ML DEYVIAL IH PRN (15:25)
[2017-12-31] MEDS ORDERED: ONDANSETRON 4 MG/2 ML VIAL IVP PRN (15:25)
[2017-12-31] MEDS ORDERED: ACETAMINOPHEN 325 MG TAB PO PRN (15:25)
[2017-12-31] MEDS ORDERED: ONDANSETRON DISINTEGRATING 4 MG TAB PO PRN (15:25)
[2017-12-31] MEDS ORDERED: FLUTICASONE NASAL 120 SPRAYS/16 GM MDI EACHNARE PRN (15:29)
[2017-12-31] MEDS ORDERED: NS 1,000 ML IV SCH (15:30)
[2017-12-31] MEDS ORDERED: IPRATROPIUM/ALBUTEROL 3 ML DEYVIAL IH SCH (16:00)
--- NOTE | 2017-12-31 16:07 | GHP ---
[f rep st] HISTORY AND PHYSICAL DATE OF ADMISSION: 12/31/2017 CHIEF COMPLAINT: Hypoxia. HISTORY OF PRESENT ILLNESS: This is an 82-year-old man who had a rotator cuff surgery on Thursday. Y , his daughter arrived, she notes that he was coughing somewhat. He had an episode of shakin g on the couch, which they were unsure if that represented a fever or not. It did not really sound l tania it. and daughter found him this morning with the nasal cannula out of his nose. He was hyp oxic into the mid 80s and did not respond. He normally uses 4 L of oxygen continuously; however, he is normally in the 90s. He did not get up into the 90s with this amount of oxygen. Currently, he is coughing somewhat. He has also had some difficulty urinating since the surgery. He has been starte d on oxycodone since then. He has oxygen and steroid dependent COPD. He was recently started on brigette thromycin for his COPD. PAST MEDICAL/SURGICAL HISTORY: 1. COPD, oxygen and steroid dependent. His last FEV1 was 26%. 2. Hyperlipidemia. 3. Coronary calcifications seen on CT scan. 4. Restless legs syndrome. 5. Memory problems, on donepezil and Namenda. 6. GERD. 7. Hernia operation. 8. Appendectomy. MEDICATIONS: Please see medication reconciliation. ALLERGIES: Lorazepam. SOCIAL HISTORY: He lives with his . They do not have any help at home. His daughter is charly reid from [place]. FAMILY HISTORY: Reviewed and noncontributory. REVIEW OF SYSTEMS: A 10-point review of systems is conducted and is negative except per HPI. PHYSICAL EXAM: VITAL SIGNS: Blood pressure 113/68, heart rate 100, respiratory rate 20, saturating 96% on 6 L, temperature is 37.5, T-max is 38. GENERAL: The patient is a pleasant man who is somewha t confused, having difficulty completing a sentence. HEENT: Normocephalic, atraumatic. EXTREMITIES : His left arm is in a sling. CARDIOVASCULAR: Regular rate and rhythm. No murmurs, rubs, or perkins ps. PULMONARY: Very diminished breath sounds bilaterally. He has scant expiratory wheezes. ABDOME N: Soft, nontender, nondistended. SKIN: No rash. : No Cardenas. NEUROLOGIC: Alert and oriented probably times about 3. He is moving all extremities. Nonfocal exam. PSYCHIATRIC: Normal mood and affect. LABS: White count is 12.1, hemoglobin is 12. INR 0.92. Lactate is 1.2. Bicarb is 34. Urinalysis is negative. Flu swab is negative. DATA: 1. I reviewed his chart. 2. I personally viewed and interpreted his chest x-ray and it shows stable bilateral lower lobe inte rstitial pattern. IMPRESSION AND PLAN: 1. Uaria-fx-iuqknqf hypoxic and hypercapnic respiratory failure: I suspect that this is a bronchiti s, I am unsure if this is viral or bacterial. We will send procalcitonin, viral swab. I agree with empiric treatment with antibiotics. I will give him Unasyn (he has evidence of chronic aspiration on his x-ray) and doxycycline. He was previously on azithromycin 250 daily. We will also add moderate dose intravenous steroids. 2. Sepsis: As evidenced by leukocytosis, tachycardia. Likely source is bronchitis versus pneumonia . We will give him some slow IV fluids overnight. 3. Chronic obstructive pulmonary disease with acute exacerbation: Chronic 4 L oxygen dependent, laurie roid dependent, FEV1 of 26%. We will continue his inhalers. 4. Hyperlipidemia: Statin. 5. Memory problems: Continue his Namenda and Aricept. 6. Likely acute encephalopathy: Due to acute illness and lack of sleep. 7. Anemia: This is chronic and stable. 8. Elevated bicarb: This is chronic recently. 9. Code status is full. 10. Venous thromboembolism risk is high. I will give him Lovenox. /[id number]/MODL
[2017-12-31] MEDS: LEVALBUTEROL 1.25 MG/3 ML DEYVIAL IH SCH ×2 (16:37→20:10)
[2017-12-31] MEDS: methylPREDNISolone SOD SUCC 40 MG/ML VIAL IVP SCH ×2 (18:15→23:34)
[2017-12-31] MEDS: AMPICILLIN/SULBACTAM 3 GM VIAL IV SCH ×2 (18:16→23:34)
[2017-12-31] MEDS: PRAMIPEXOLE 1 MG TAB PO SCH (18:39)
[2017-12-31] MEDS: FLUTICASONE/SALMETER 500/50MCG DISKUS IH SCH (20:57)
[2017-12-31] MEDS ORDERED: TIOTROPIUM INHALER 18 MCG/DOSE 5 DOSE/MDI IH SCH (21:00)
[2017-12-31] MEDS: ATORVASTATIN CALCIUM 10 MG TAB PO SCH (21:45)
[2017-12-31] MEDS: MEMANTINE HCL 5 MG TAB PO SCH (21:45)
[2017-12-31] MEDS: TAMSULOSIN HCL 0.4 MG CAP PO SCH (21:45)
[2017-12-31] MEDS: DONEPEZIL HCL 5 MG TAB PO SCH (21:45)
[2017-12-31] MEDS: guaiFENesin 600 MG TAB.ER PO SCH (21:46)
[2017-12-31] MEDS: GABAPENTIN 300 MG CAP PO SCH (21:46)
[2017-12-31] MEDS: DOXYCYCLINE INJ 100 MG in NS 250 ML IV SCH (21:50)
[2018-01-01] MEDS: methylPREDNISolone SOD SUCC 40 MG/ML VIAL IVP SCH ×2 (05:25→12:25)
[2018-01-01] MEDS: AMPICILLIN/SULBACTAM 3 GM VIAL IV SCH ×4 (05:25→23:16)
[2018-01-01 05:32] LABS: PLATELET COUNT 167 10^3/uL (150-400)
[2018-01-01] MEDS: LEVALBUTEROL 1.25 MG/3 ML DEYVIAL IH SCH ×4 (06:07→21:35)
[2018-01-01] MEDS: GABAPENTIN 300 MG CAP PO SCH ×2 (08:45→20:18)
[2018-01-01] MEDS: MEMANTINE HCL 5 MG TAB PO SCH ×2 (08:45→20:19)
[2018-01-01] MEDS: guaiFENesin 600 MG TAB.ER PO SCH ×2 (08:45→20:17)
[2018-01-01] MEDS: PANTOPRAZOLE SODIUM 40 MG TAB PO SCH (08:45)
[2018-01-01] MEDS: DOXYCYCLINE INJ 100 MG in NS 250 ML IV SCH ×2 (08:46→20:22)
[2018-01-01] MEDS: ENOXAPARIN 40 MG/0.4 ML SYR SC SCH (08:46)
[2018-01-01] MEDS ORDERED: CETIRIZINE 10 MG TAB PO PRN (09:00)
[2018-01-01] MEDS: FLUTICASONE/SALMETER 500/50MCG DISKUS IH SCH ×2 (10:47→21:37)
--- NOTE | 2018-01-01 10:58 | PDMN ---
Medical Necessity Medical necessity: M160 sepsis and other febrile illness- leukocytosis, tachycardia, recent sgy, M100 COPD exacerbation: now req 6L O2 - sats 96% exp. wheezing, bronchitis vs. PNA, ( evidence of chronic aspiration on CXR) anticipate > 2 midnights ongoing med nec care, monitoring and tx IV fluids, steroids, abx, O2,
--- NOTE | 2018-01-01 11:23 | ASMTCMCOM ---
CM Note CM Note Notes: Spoke w/Family and OT, recommendation is for SNF, family wants [facility]. CM left message for Salma and referral faxed. DC Plan: SNF/ [facility] Date Signed: 01/01/2018 11:22 AM Electronically Signed By:Breonna Anders RN
[2018-01-01] MEDS: TIOTROPIUM INHALER 18 MCG/DOSE 5 DOSE/MDI IH SCH (12:26)
--- NOTE | 2018-01-01 12:35 | HOSPPROG ---
Hospitalist Progress Note Assessment/Plan: # acute on chronic (4L O2) hypoxic and hypercapnic resp failure - d/t underlying COPD with exacerbation, possible aspiration given CXR appearance - follows with Dr Bright as outpatient # COPD with acute exacerbation - steroid and O2 dependent - cont abx (nasyn and doxy), nebs and steroids - had been placed on daily azith by dr bright; cont spiriva and advair # acute encephalopathy - much improved today, at baseline # recent shoulder surgery - decrease narcotics as tolerated - message left for Dr Clay apprising him of the admission # urinary retention - will try to dc marquez today # memory impairment - on aricept and namenda # HLD - statin # FCFT # dvt ppx - lovenox # dispo - possibly tomorrow to [facility] ([facility]) - CM involved Subjective: feels much better today; seen with and daughter Objective: Vital Signs Temp Pulse Resp BP Pulse Ox 36.3 C 67 16 116/63 97 01/01/18 11:22 01/01/18 11:22 01/01/18 11:22 01/01/18 11:22 01/01/18 11:22 Microbiology 12/31/17 16:00 Respiratory Panel (PCR) - Final Nasal, Sinus - Swab No Organism Detected Laboratory Results 01/01/18 04:54 01/01/18 04:54 12/31/17 01/01/18 01/02/18 05:59 05:59 05:59 Intake Total 2300 Output Total 2100 Balance 200 PT 12.6 SEC (12.0-15.0) 12/31/17 09:10 INR 0.92 (0.83-1.16) 12/31/17 09:10 CXR personally reviewed - Physical Exam Constitutional: no apparent distress Cardiovascular: regular rate and rhythym, systolic murmur Respiratory: respiratory distress (mild), other (diminished throughout, mild wheezes), No inspiratory crackles Gastrointestinal: soft, non-tender abdomen, no palpable masses ICD10 Worksheet Patient Problems: Problems Problem Status Onset Bronchitis Acute COPD exacerbation Acute Sciatica Acute
[2018-01-01] MEDS ORDERED: CARBOXYMETHYLCELLULOSE 0.5% 0.4 ML DROPERETTE EACHEYE PRN (14:52)
--- NOTE | 2018-01-01 14:58 | ASMTCMCOM ---
CM Note CM Note Notes: Spoke w/Salma at [facility], authorization received and pt can admit tomorrow, family notified. DC Plan: [facility]/ [facility] Date Signed: 01/01/2018 02:57 PM Electronically Signed By:Breonna Anders RN
[2018-01-01] MEDS: PRAMIPEXOLE 1 MG TAB PO SCH (20:17)
[2018-01-01] MEDS: DONEPEZIL HCL 5 MG TAB PO SCH (20:18)
[2018-01-01] MEDS: ATORVASTATIN CALCIUM 10 MG TAB PO SCH (20:18)
[2018-01-01] MEDS: TAMSULOSIN HCL 0.4 MG CAP PO SCH (20:18)
[2018-01-01] MEDS: oxyCODONE IR 5 MG TAB PO PRN ×2 (21:53→23:09)
[2018-01-01] MEDS ORDERED: HYDROmorphone HCL/NS 0.5 MG/ML SYR IVP PRN (21:57)
[2018-01-01] MEDS ORDERED: HYDROmorphONE/DILAUDID 2 MG/ML INJ IVP ONE (22:00)
[2018-01-01] MEDS ORDERED: CYCLOBENZAPRINE 10 MG TAB PO ONE (23:03)
[2018-01-02] MEDS ORDERED: HYDROmorphone HCL/NS 0.5 MG/ML SYR IVP PRN (00:18)
[2018-01-02] MEDS ORDERED: MELATONIN 3 MG TAB PO SCH (00:30)
[2018-01-02] MEDS: LEVALBUTEROL 1.25 MG/3 ML DEYVIAL IH SCH ×2 (04:57→09:50)
[2018-01-02] MEDS: AMPICILLIN/SULBACTAM 3 GM VIAL IV SCH ×2 (05:05→12:28)
[2018-01-02 05:44] LABS: PLATELET COUNT 180 10^3/uL (150-400)
[2018-01-02] MEDS ORDERED: predniSONE 20 MG TAB PO SCH (09:00)
[2018-01-02] MEDS: MEMANTINE HCL 5 MG TAB PO SCH (09:05)
[2018-01-02] MEDS: GABAPENTIN 300 MG CAP PO SCH (09:05)
[2018-01-02] MEDS: PANTOPRAZOLE SODIUM 40 MG TAB PO SCH (09:05)
[2018-01-02] MEDS: guaiFENesin 600 MG TAB.ER PO SCH (09:06)
[2018-01-02] MEDS: ENOXAPARIN 40 MG/0.4 ML SYR SC SCH (09:07)
[2018-01-02] MEDS: DOXYCYCLINE INJ 100 MG in NS 250 ML IV SCH (09:08)
[2018-01-02] MEDS: FLUTICASONE/SALMETER 500/50MCG DISKUS IH SCH (09:50)
[2018-01-02] MEDS: TIOTROPIUM INHALER 18 MCG/DOSE 5 DOSE/MDI IH SCH (09:50)
[2018-01-02 11:19] VITALS: BP 142/90; PULSE 80; RESP 18; TEMP 97.7; O2SAT 96
[2018-01-02] MEDS: oxyCODONE IR 5 MG TAB PO PRN (12:27)
--- NOTE | 2018-01-02 13:08 | HOSPPROG ---
Hospitalist Progress Note Assessment/Plan: Patient is an 82-year-old male who had rotator cuff surgery on Thursday. When his daughter went to see him he was coughing. He is usually on 4 L of oxygen for his chronic COPD. Today is my 1st encounter with the patient. Chart reviewed. # acute on chronic (4L O2) hypoxic and hypercapnic resp failure - d/t underlying COPD with exacerbation, possible aspiration given CXR appearance - follows with Dr Bright as outpatient # COPD with acute exacerbation - steroid and O2 dependent (doses of steroids increased) - cont abx-on Unasyn and doxycycline/ will dc on Augmentin in case of ongoing aspiration - had been placed on daily azith by dr bright; cont spiriva and advair #sepsis -noted on admission w increased wbc and tachycardia -since resolved -likely secondary to bronchitis # acute encephalopathy - resolved at baseline # recent shoulder surgery - decrease narcotics as tolerated - message left for Dr Clay apprising him of the admission # urinary retention - will try to dc marquez today # memory impairment - on Aricept and Namenda # HLD - statin # FCFT # dvt ppx - lovenox # dispo -dc to [facility] Subjective: Vladimir is feeling great, wants to be dc Objective: Vital Signs Temp Pulse Resp BP Pulse Ox 36.5 C 80 18 142/90 H 96 01/02/18 11:17 01/02/18 11:17 01/02/18 11:17 01/02/18 11:17 01/02/18 11:17 Laboratory Results 01/02/18 04:26 01/01/18 04:54 01/01/18 01/02/18 01/03/18 05:59 05:59 05:59 Intake Total 2300 550 Output Total 2100 250 1000 Balance 200 300 -1000 PT 12.6 SEC (12.0-15.0) 12/31/17 09:10 INR 0.92 (0.83-1.16) 12/31/17 09:10 - Physical Exam Constitutional: no apparent distress, not in pain, chronically ill appearing Eyes: PERRL Ears, Nose, Mouth, Throat: hearing normal Cardiovascular: regular rate and rhythym Respiratory: no respiratory distress, reduced air movement Skin: warm Musculoskeletal: generalized weakness Neurologic: AAOx3 Psychiatric: interacting appropriately ICD10 Worksheet Patient Problems: Problems Problem Status Onset Bronchitis Acute COPD exacerbation Acute Sciatica Acute
--- NOTE | 2018-01-02 14:09 | PDIAF ---
- Diagnosis Diagnosis: copd exacerbation, bronchitis, recent rotator cuff surgery Code Status: Full Code - Medication Management Discharge Medications: Medications to Continue on Transfer Albuterol [Proventil Inhaler HFA (*)] 1 - 2 puffs IH Q4H PRN 05/19/17 [Last Taken 12/31/17] Fluticasone Nasal [Flonase Nasal [place]] 1 sprays NASAL DAILY PRN 05/19/17 [Last Taken 12/28/17] Fluticasone/Salmeter 500/50Mcg [Advair 500/50 (*)] 1 puffs IH BID 05/19/17 [ Last Taken 12/30/17 21:00] Gabapentin [Neurontin 300 MG (*)] 300 mg PO BID 05/19/17 [Last Taken 12/30/17 21 :00] Loratadine [Claritin] 10 mg PO DAILY PRN 05/19/17 [Last Taken 12/28/17] Memantine HCl [Namenda 10 mg] 10 mg PO BID 05/19/17 [Last Taken 12/30/17 21:00] Multivitamins [Multivitamin (*)] 1 each PO HS 05/19/17 [Last Taken 12/30/17] Pramipexole Di-HCl [Mirapex 1 mg (*)] 0.5 - 1 mg PO HS 05/19/17 [Last Taken 1MG] Simvastatin [Zocor] 20 mg PO HS 05/19/17 [Last Taken 12/30/17] Tamsulosin HCl [Flomax 0.4 MG (*)] 0.4 mg PO HS 05/19/17 [Last Taken 12/30/17] Tiotropium Inhaler [Spiriva Inhaler (RX)] 1 inh IH HS 05/19/17 [Last Taken 12/30] predniSONE 12.5 mg PO DAILY 05/19/17 [Last Taken 12/30/17] Acetaminophen [Tylenol ES 500 mg (*)] 1,000 mg PO Q6HRS PRN tab 06/23/17 [Last Taken 12/28/17] Donepezil HCl [Aricept 5 MG (*)] 5 mg PO HS #0 12/23/17 [Last Taken 12/30/17] Cyclobenzaprine [Flexeril 10 MG (*)] 5 - 10 mg PO Q8HRS PRN 12/31/17 [Last Taken Unknown] Lansoprazole [Prevacid] 15 mg PO DAILY 12/31/17 [Last Taken 12/30/17] Levalbuterol 1.25 mg [Xopenex 1.25MG Neb (*)] 1.25 mg IH Q6HRS PRN 12/31/17 [ Last Taken 12/31/17] oxyCODONE IR [Oxycodone Ir (*)] 5 - 10 mg PO Q4HRS PRN 12/31/17 [Last Taken Unknown] Amoxicillin/Clavulanate Pot [Augmentin 875 MG TAB (*)] 875 mg PO BID #9 tab [Last Taken Unknown] Doxycycline Inj [Vibramycin Inj] 100 mg IV Q12HRS vial 01/02/18 [Last Taken Unknown] Melatonin [Melatonin 3 MG (*)] 3 mg PO HS tab 01/02/18 [Last Taken Unknown] guaiFENesin [Mucinex 600 MG (*)] 1,200 mg PO BID tab.er 01/02/18 [Last Taken Unknown] predniSONE 20 mg PO DAILY #3 tablet 01/02/18 [Last Taken Unknown] Discharge Medications: Refer to the Discharge Home Medication list for PRN reason. PICC Care - Routine: N/A - Orders Services needed: Physical Therapy, Occupational Therapy Isolation Type: None Diet Recommendation: no restrictions on diet Diet Texture: Regular Texture Diet Additional: take antibiotics for 4 more days. Continue Prednisone 20 mg daily x 3 days, then decrease back to home dose of 12.5 mg daily. F/u with orthopedics and with Dr Zurita. - Follow Up Care Current Providers and Referrals: Robbie Marie MD [Primary Care Provider] - As per Instructions
--- NOTE | 2018-01-02 15:40 | GDS ---
[f rep st] DISCHARGE SUMMARY DISCHARGE DIAGNOSES: 1. Fzzos-xf-[id number] hypoxemic and hypercapnic respiratory failure. 2. Chronic obstructive pulmonary disease. 3. Sepsis, noted on admission. 4. Acute encephalopathy. 5. Recent shoulder surgery. 6. Urinary retention. 7. Memory impairment. 8. Hyperlipidemia. HISTORY: The patient is an 82-year-old man who had rotator cuff surgery on Thursday. His daughter rick koehelr noting he was coughing and had some shaking when he was on the couch. He was hypoxic in the wy d 80s and he normally is on 4 L of oxygen. When he is on 4 L, he is normally in the 90s. He had als o been treated with azithromycin recently by his javascript developer. He was transferred to the hospital a nd was started on Unasyn as well as doxycycline for chronic aspiration noted on his x-rays. He impro bety nicely. Today he will be discharged on a few more days of antibiotics and follow up with Dr. Rich house. HOSPITAL COURSE PER PROBLEM: 1. Conwq-nc-zfwyuff hypoxemic and hypercapnic respiratory failure: This is due to underlying COPD w ith exacerbation with the possible aspiration given the chest x-ray appearance. He is at his baselin e, doing well. 2. COPD with acute exacerbation: He is steroid and oxygen dependent. His prednisone will be decrea sed to 20 mg for 3 more days, and then he will resume his home dose of 12.5 mg daily. 3. Sepsis: This was noted on admission. This is likely secondary to bronchitis with possible under lying aspiration. This has since resolved. 4. Acute encephalopathy, resolved. 5. Recent shoulder surgery: To follow up with Dr. Wilcox in the outpatient setting. 6. Urinary retention: Resolved. 7. Memory impairment: On Aricept and Namenda. 8. Hyperlipidemia: Statin. CONDITION AT DISCHARGE: Stable. Blood pressure is 142/90, heart rate is 80, respiratory rate is 18, O2 saturation on 4 L 96%, and temperature 36.5 Celsius. PENDING LABORATORY AT DISCHARGE: None. MEDICATIONS AT DISCHARGE: Please see the EMR. DISCHARGE INSTRUCTIONS: 1. To follow up with Dr. Wilcox in the outpatient setting. 2. Follow up with Dr. Zurita. 3. To continue antibiotics for 4 more days. 4. Azithromycin and long-acting oxycodone have been discontinued. TIME SPENT: Greater than 30 minutes discharging and coordinating the patient's care. /[id number]/MODL
== END 2018-01-02 15:17 | DRG 871 ==
LOC: F3E 13:17
PROVIDERS: ADMIT Family Medicine; ATTEND Family Medicine
DX: A41.9 Sepsis, unspecified organism (principal); J96.21 Acute and chronic respiratory failure with hypoxia; J96.22 Acute and chronic respiratory failure with hypercapnia; G93.49 Other encephalopathy; J44.1 Chronic obstructive pulmonary disease with (acute) exacerbation; R33.9 Retention of urine, unspecified; E78.5 Hyperlipidemia, unspecified
CPT/HCPCS: 96365; 97161-GP; 97166-GO; 97535-GO; G8978-GP-CJ; G8979-GP-CI; G8987-GO-CK; G8988-GO-CI; J0295; J1170; J1650; J2543; J2920; J2930; J7512; J7613

== ENCOUNTER 2018-02-09 05:47 | Inpatient (IN) | payer OTHER ==
[2018-02-09] MEDS ORDERED: LIDOCAINE 1% 2 ML INJ ID PRN (06:19)
[2018-02-09] MEDS ORDERED: LR 1,000 ML IV ONE (06:19)
[2018-02-09] MEDS ORDERED: LIDOCAINE 1% 300 MG/30 ML SDV ONE (06:45)
[2018-02-09] MEDS ORDERED: POLYMYXIN B SULFATE 500,000 UNIT/10 ML SYR IRR ONE (06:46)
[2018-02-09] MEDS ORDERED: BUPIVACAINE 0.5% 30 ML SDV ONE ×2 (06:46→07:29)
[2018-02-09] MEDS ORDERED: BACITRACIN 50,000 UNITS/10 ML SYR IRR ONE (06:46)
[2018-02-09] MEDS ORDERED: VANCOMYCIN PHARMACY TO DOSE MISC ONE (06:53)
[2018-02-09 07:06] LABS: PLATELET COUNT 311 10^3/uL (150-400)
[2018-02-09] MEDS ORDERED: IPRATROPIUM/ALBUTEROL 3 ML DEYVIAL IH ONE (07:11)
--- NOTE | 2018-02-09 07:14 | PDANEPAE ---
ANE History of Present Illness 82 yo male with L shoulder bursa infection. ANE Past Medical History - Cardiovascular History Hx Hypertension: No Hx Arrhythmias: No Hx Chest Pain: No Hx Coronary Artery / Peripheral Vascular Disease: No Hx CHF / Valvular Disease: No Hx Palpitations: No - Pulmonary History Hx COPD: Yes Hx Asthma/Reactive Airway Disease: No Hx Recent Upper Respiratory Infection: Yes Hx Oxygen in Use at Home: Yes O2 in Use at Home (L/minute): O2 AT 3L NC (ATC) Hx Sleep Apnea: No Sleep Apnea Screening Result - Last Documented: Negative Pulmonary History Comment: 12-16-17 TREATED WITH Quit smoking ~2002. ANTIBIOTIC "due to congestion". EMPHYSEMA. occ cough/BRONCHITIS. pneumonia ~ 2010 - Neurologic History Hx Cerebrovascular Accident: No Hx Seizures: No Hx Dementia: No Neurologic History Comment: on Memantine for short term memery enhancement - Endocrine History Hx Diabetes: No Hypothyroid: No Obesity: no - Renal History Hx Renal Disorders: Yes Renal History Comment: BPH - Liver History Hx Hepatic Disorders: No - Neurological & Psychiatric Hx Hx Neurological and Psychiatric Disorders: Yes Neurological / Psychiatric History Comment: denies DEMENTIA now- pt put himself on Memantine to help short term memory. Hx of low back pain -on Gabapentin. - Cancer History Hx Cancer: No - Congenital Disorder History Hx Congenital Disorders: No - GI History Hx Gastrointestinal Disorders: Yes Gastrointestinal History Comment: on Rx to prevent GERD - Other Health History Other Health History: L INFECTED ELBOW-BURSA;. Restles leg syndrome. SPINAL STENOSIS. PREV AWILDA - Chronic Pain History Chronic Pain: No - Surgical History Prior Surgeries: L shoulder scope 12-27;. lumbar laminectomy 06-17-17. JONATHON CATARACT. APPENDECTOMY. ING HERNIA. TONSILLECTOMY & ADENOIDS ANE Review of Systems Review of Systems: - Exercise capacity METS (RN): 3 METS - Systems Cardiac: Reports: no symptoms Respiratory: Reports: wheezing ANE Patient History - Allergies Allergies/Adverse Reactions: lorazepam [From Ativan] Allergy (Mild, Verified 02/08/18 15:01) confusion, restless leg - Home Medications Home Medications: RX: Albuterol [Proventil Inhaler HFA (*)] 1 - 2 puffs IH Q4H PRN 05/19/17 [Last Taken 02/08/18 18:00] RX: Fluticasone Nasal [Flonase Nasal [place]] 1 sprays NASAL DAILY PRN 05/19/17 [ Last Taken 02/08/18 09:00] RX: Fluticasone/Salmeter 500/50Mcg [Advair 500/50 (*)] 1 puffs IH BID 05/19/17 [ Last Taken 02/08/18 18:00] RX: Gabapentin [Neurontin 300 MG (*)] 300 mg PO BID 05/19/17 [Last Taken 18:00] RX: Loratadine [Claritin] 10 mg PO DAILY PRN 05/19/17 [Last Taken 02/08/18 09:00 ] RX: Memantine HCl [Namenda 10 mg] 10 mg PO BID 05/19/17 [Last Taken 02/08/18 18: 00] RX: Multivitamins [Multivitamin (*)] 1 each PO HS 05/19/17 [Last Taken 02/08/18 12:00] RX: Pramipexole Di-HCl [Mirapex 1 mg (*)] 0.5 - 1 mg PO HS 05/19/17 [Last Taken 02/08/18 21:30] RX: Simvastatin [Zocor] 20 mg PO HS 05/19/17 [Last Taken 02/08/18 21:30] RX: Tamsulosin HCl [Flomax 0.4 MG (*)] 0.4 mg PO HS 05/19/17 [Last Taken 21:30] RX: Tiotropium Inhaler [Spiriva Inhaler (RX)] 1 inh IH DAILY 05/19/17 [Last Taken 02/08/18 20:00] RX: predniSONE 12.5 mg PO DAILY 05/19/17 [Last Taken 02/09/18 04:00] RX: Donepezil HCl [Aricept 5 MG (*)] 5 mg PO HS #0 12/23/17 [Last Taken 21:30] RX: Lansoprazole [Prevacid] 15 mg PO DAILY 12/31/17 [Last Taken 02/08/18 09:00] RX: Levalbuterol 1.25 mg [Xopenex 1.25MG Neb (*)] 1.25 mg IH Q6HRS PRN 12/31/17 [Last Taken 02/08/18 18:00] - NPO status NPO Status: no food or drink >8 hours NPO Since - Liquids (Date): 02/08/18 NPO Since - Liquids (Time): 21:30 NPO Since - Solids (Date): 02/08/18 NPO Since - Solids (Time): 16:30 - Anes Hx Anes Hx: post operative cognitive dysfunction - Smoking Hx Smoking Status: Former smoker Marijuana use: No - Family Anes Hx Family Anes Hx: neg - N/A Family Hx Anesthesia Complications: NONE ANE Labs/Vital Signs - Labs Result Diagrams: 02/09/18 06:55 02/09/18 06:55 - Vital Signs Blood Pressure: 124/73 Heart Rate: 82 Respiratory Rate: 20 O2 Sat (%): 97 Height: 175.26 cm Weight: 68.946 kg ANE Physical Exam - Airway Neck exam: FROM Mallampati Score: Class 2 Mouth exam: dentures - Pulmonary Pulmonary: expiratory wheeze - Cardiovascular Cardiovascular: regular rate and rhythym - ASA Status ASA Status: III ANE Anesthesia Plan Anesthesia Plan: GA w LMA Regional Anesthesia: supraclavicular BP NB
[2018-02-09] MEDS ORDERED: fentaNYL 100 MCG/2 ML INJ ONE (07:20)
[2018-02-09] MEDS ORDERED: PROPOFOL/EMULSION 500 MG/50 ML BOTTLE IV ONE (07:20)
[2018-02-09] MEDS ORDERED: DEXAMETHASONE 4 MG/ML VIAL ONE (07:23)
[2018-02-09] MEDS ORDERED: LIDOCAINE 2% 5 ML SDV ONE ×2 (07:27)
[2018-02-09] MEDS ORDERED: VANCOMYCIN HCL/NORMAL SALINE 250 ML IV ONE (07:30)
[2018-02-09] MEDS ORDERED: LR 500 ML IV PRN (08:32)
[2018-02-09] MEDS ORDERED: ACETAMINOPHEN 500 MG TAB PO PRN (08:32)
[2018-02-09] MEDS ORDERED: NALOXONE HCL 0.4 MG/ML INJ IVP PRN (08:32)
[2018-02-09] MEDS ORDERED: ONDANSETRON 4 MG/2 ML VIAL IVP PRN ×2 (08:32→11:46)
[2018-02-09] MEDS ORDERED: ALBUTEROL 3 ML DEYVIAL IH PRN ×2 (08:32→11:42)
[2018-02-09] MEDS ORDERED: fentaNYL 100 MCG/2 ML INJ IVP PRN (08:32)
[2018-02-09] MEDS ORDERED: BACITRACIN ZINC 14.2 GM OINTTUBE TP ONE (08:36)
[2018-02-09] MEDS ORDERED: oxyCODONE IR 5 MG TAB PO PRN (08:53)
--- NOTE | 2018-02-09 09:02 | POSTANESTH ---
Post Anesthetic Evaluation Cardiovascular Status: Normal, Stable Respiratory Status: Similar to Pre-op Cond. Level of Consciousness/Mental Status: Can Participate in Eval, Mildly Sleepy, Arousable Pain Control: Adequate, Prn Tx Ordered Nausea/Vomiting Control: Adequate, Prn Tx Ordered Complications Possibly Related to Anesthesia: None Noted (L UE insensate and immobile secondary to supraclavicular nerve block.)
--- NOTE | 2018-02-09 09:04 | POSTOPPROG ---
Post Op Note Date of Operation: 02/09/18 Surgeon: Leonel Clay Nurse Substance Abuse: Marie Hernandez Anesthesiologist: Gabriel Anesthesia: GET(General Endotracheal) Pre-op Diagnosis: Left elbow septic olecranon bursa Post-op Diagnosis: Left elbow septic olecranon bursa Procedure: Left elbow olecranon bursa excision with irrigation and debridement Inf/Abcess present in the surg proc area at time of surgery?: Yes Depth: Superfical (Skin SQ) EBL: Minimal
--- NOTE | 2018-02-09 09:07 | SOAPPROG ---
SOAP Progress Note Assessment/Plan: Assessment: Bunny is a pleasant 82 year old male now POD#0 from left elbow olecranon bursa excision, irrigation and debridement. (+MRSA) PE: Dressing clean and dry NV intact LUE Plan: 1. Patient will be admitted to medicine for medical management post operatively 2. Infectious disease to consult for antibiotic management ( I have spoken with Dr. Michele) 3. Keep dressing clean and dry. Reinforce as needed 4. Strict NWB LUE. Patient is currently 4 weeks s/p left shoulder RCR 02/09/18 09:04 Objective: Vital Signs Temp Pulse Resp BP Pulse Ox 35.7 C L 82 20 124/73 H 97 02/09/18 08:45 02/09/18 08:45 02/09/18 08:45 02/09/18 08:45 02/09/18 08:45 Laboratory Results 02/09/18 06:55 02/09/18 06:55 ICD10 Worksheet Patient Problems: Problems Problem Status Onset Bronchitis Acute COPD exacerbation Acute Sciatica Acute
[2018-02-09] MEDS: BACITRACIN 50,000 UNITS/10 ML SYR IRR ONE ×3 (09:25→09:30)
[2018-02-09] MEDS: POLYMYXIN B SULFATE 500,000 UNIT/10 ML SYR IRR ONE ×3 (09:26→09:30)
--- NOTE | 2018-02-09 10:49 | PDMN ---
Medical Necessity Medical necessity: [facility] musculoskeletal sgy: M70.22 Olecranon bursitis L elbow 2 days: L elbow septic olecranon bursa excision with irrigation and debridement ( + MRSA) , ID consult pend.,
[2018-02-09] MEDS ORDERED: FLUTICASONE NASAL 120 SPRAYS/16 GM MDI NS PRN (11:00)
[2018-02-09] MEDS ORDERED: TIOTROPIUM INHALER 18 MCG/DOSE 5 DOSE/MDI IH SCH (11:00)
[2018-02-09] MEDS ORDERED: ACETAMINOPHEN 325 MG TAB PO PRN (11:46)
[2018-02-09] MEDS ORDERED: ONDANSETRON DISINTEGRATING 4 MG TAB PO PRN (11:46)
[2018-02-09] MEDS ORDERED: NON-FORMULARY NEW DRUG (Memantine Hcl [Namenda 10 Mg] 10 MG) PO SCH (12:00)
[2018-02-09] MEDS: MULTIVITAMINS 1 EACH TAB PO SCH (12:17)
[2018-02-09] MEDS: predniSONE 5 MG TAB PO SCH (12:17)
--- NOTE | 2018-02-09 12:46 | GCON ---
[f rep st] CONSULTATION INFECTIOUS DISEASE CONSULTATION DATE OF CONSULTATION: 02/09/2018 REFERRING PHYSICIAN: Leonel Clay MD REASON FOR CONSULTATION: Left olecranon bursitis, for further evaluation and opinion. CHIEF COMPLAINT: Pain in the elbow. HISTORY OF PRESENT ILLNESS: This is an 82-year-old male with past medical history signific ant for COPD and dyslipidemia, who is admitted now for left olecranon bursitis status post I and D an d bursectomy today. He had a joint aspiration done on January, which showed a synovial white blo od cell count of 59,000 with predominant neutrophils of 96%. The cultures grew out MRSA. Patient was initially placed on Keflex and then switched over to Bactrim on February 07. The patient states that around January 25, he had fallen down in the shower, bumped his face and fell down he thinks maybe o n his elbow, but he is not sure. Around February 01, he started to notice pain involving the left elbo w and progressed over the week. It started become more swollen, more red and more painful. On the 11 18, he had a followup visit with Dr. Clay for his left shoulder since he had a recent left shoulde r rotator cuff surgery done and, at that time, they noticed the left elbow and that is when the joint was aspirated. The patient states that after the aspiration, he did feel significantly better. The patient is status post surgery and Infectious Disease is now consulted for further evaluation and op inion. He denied any fevers or shaking chills during this past week. REVIEW OF SYSTEMS: GENERAL: Denied any fever or shaking chills. HEAD: No headaches. EYES: No roy ge in vision. ENT: No sore throat. He has some difficulty swallowing at baseline. No ear pain or ear drainage. CARDIOVASCULAR: No chest pain or rapid heartbeat. RESPIRATORY: Has baseline shortness of breath, but no increased out of his baseline. Mild cough a couple days ago but none recently. No sp utum production. ABDOMEN: No nausea, vomiting, abdominal pain, or diarrhea. : No dysuria. He has had some trouble urinating today after surgery. No back pain or flank pain. MUSCULOSKELETAL: No ot her joint pains or hurting. Lower extremities no swelling. Rest of review of systems essentially neg ative except as above. PAST MEDICAL HISTORY: Significant for COPD O2 and steroid dependent, dyslipidemia, restless legs syn drome, GERD, memory problems, coronary calcifications on CT. PAST SURGICAL HISTORY: Significant for appendectomy, hernia operation, and lumbar spine surgery with out hardware placed. Also, a left shoulder rotator cuff surgery in December. ALLERGIES: Lorazepam with uncertain reaction. SOCIAL HISTORY: He is a former smoker. He used to smoke a pack a day for 50 years. Quit about 14 y ears ago. He does not drink alcohol. Lives with his . Has not left [place] recently. FAMILY HISTORY: Reviewed and found to be noncontributory. MEDICATIONS: As per DEC. PHYSICAL EXAMINATION: VITAL SIGNS: Temperature current 36.6, pulse 73, blood pressure 131/71, respi ratory rate is 18, saturation 96% on 3 L O2 via nasal cannula. GENERAL: Patient is resting in bed. No acute respiratory distress. Awake, alert, oriented x3. HEENT: Head is normocephalic, atraumatic . Eyes: Pupils reactive to light. No conjunctival injection or petechiae noted. Oropharynx is bisi ar. No posterior erythema or thrush. He has upper dentures. CARDIOVASCULAR: S1, S2. Regular rate and rhythm and rhythm. No obvious murmurs. RESPIRATORY: Decreased breath sounds bilaterally but no camila rhonchi. ABDOMEN: Positive bowel sounds in all quadrants, soft, nontender, nondistended. EXT REMITIES: No lower extremity edema. MUSCULOSKELETAL: Left elbow in operative dressing. Left should er with healed surgical sites. LABORATORY DATA: White blood cell count is 11.9, hemoglobin 10.5, platelets are 311, neutrophil coun t is 81%. Sodium 141, potassium 4.2, chloride is 101, bicarb 23. No creatinine or LFTs were done so those have been ordered by me and are pending. Joint fluid as stated above. Microbiology: MRSA on the elbow aspirate from the . Cultures from today are pending. MRSA vancomycin IZZY is 1. ASSESSMENT: Left olecranon bursitis status post incision, drainage and bursectomy secondary to methi cillin-resistant staphylococcus aureus. PLAN: At present, will continue with vancomycin. He was given 1 g perioperatively. Awaiting for hi s creatinine level to come back to assess proper dosing. As mentioned above, checking a CMP stat to evaluate his lab further. He will likely need a prolonged course of antibiotics in the range of 2-4 weeks for the above. This was discussed with the patient and his at the bedside. Final determi nation on antibiotic choice will be in 1-2 days after all of that has been collected. Monitor labs c losely while on vancomycin. Thank you very much for the opportunity to care for your patient in consultation. Therapy care coordinated with the Hospitalist team and the Orthopedic team earlier this morning. /[id number]/MODL
[2018-02-09] MEDS: MEMANTINE HCL 5 MG TAB PO SCH ×2 (12:48→21:23)
--- NOTE | 2018-02-09 13:36 | GHP ---
[f rep st] HISTORY AND PHYSICAL DATE OF ADMISSION: 02/09/2018 CHIEF COMPLAINT: Left septic olecranon bursitis. HISTORY OF PRESENT ILLNESS: Mr. Whitney is an 82-year-old male who has a history of rotator cuff surgery in December and COPD, oxygen and steroid dependent , who is postop day #0 for I and D and bursectomy for left olecranon bursitis. He noted that over the last 4 to 5 days he had swelling in the left elbow and the pain had increased. He was seen and evaluated by Dr. Wilcox and had a joint aspiration done on 02/05/2018. The cultures grew out MRSA and he was initially treated with Keflex and then switched over to Bactrim on 02/07/2018. Prior to this he had a fall on 01/25/2018, and he thinks he may have hit his head and, at that time, hit his elbow noticing that his elbow had further swelling. During my interview he denies any fever or chills. He has had some intermittent blurred vision, but this is his baseline. He denies any chest pain , has chronic shortness of breath, no nausea, or vomiting. He has chronic problems with urination. He is being admitted today for antibiotic therapy and has no significant complaints. PAST MEDICAL HISTORY: 1. COPD, oxygen and steroid dependent. His most recent FEV1 was 26%. 2. Hyperlipidemia. 3. Coronary artery calcification seen on CT scan. 4. Restless legs syndrome. 5. Memory problems on Aricept and Namenda. 6. GERD. PAST SURGICAL HISTORY: 1. Left shoulder surgery in December of 2017. 2. Hernia surgery. 3. Appendectomy. 4. Back surgery. SOCIAL HISTORY: He lives with his . He has a history of smoking, but quit approximately 14 years ago. Prior to that he smoked a pack a day for 50 years. He does not use alcohol. FAMILY HISTORY: His parents in their 90s. He is not clear what they from. ALLERGIES: Lorazepam. HOME MEDICATIONS: Prednisone 12.5 mg daily, Spiriva 1 inhalation daily, Flomax 0.4 mg at bedtime, Bactrim 1 tablet b.i.d., Zocor 20 mg p.o. at bedtime, Mirapex 1 mg p.o. at bedtime, multivitamins 1 tablet daily, Namenda 10 mg twice daily, Claritin 10 mg daily, Xopenex 1.25 mg t.i.d., Prevacid 15 mg daily, herbal supplements 1 tablet daily, Neurontin 300 mg t.i.d., Advair 500/50 mcg 1 puff inhalation b.i.d., Flonase nasal spray p.r.n., Aricept 5 mg p.o. at bedtime , azithromycin 250 mg daily, and Tylenol 325 mg p.o. daily p.r.n. REVIEW OF SYSTEMS: A 10-point review of system was performed and was negative other than pertinent positives in the HPI and past medical history. PHYSICAL EXAM: GENERAL: Mr. Whitney is an 82-year-old male who appears to be in overall poor health. VITAL SIGNS: Blood pressure is 127/76, heart rate 89, respiratory rate 16, O2 sat on 3 L is 93%, and temperature is 36.4 Celsius. EYES: Pupils are equal and reactive. ENT: Normal ears. He is somewhat hard of hearing. Oral airway is dry. NECK: Trachea is midline. CARDIOVASCULAR: He is in a regular rate and rhythm with no murmurs, rubs, or gallops noted. PULMONARY: His lung sounds are very diminished from the mid lobes down. He has poor expiratory effort. ABDOMEN: Soft and nontender. SKIN: No rash or ulcers. Ecchymosis on his left cheek area. MUSCULOSKELETAL: Not evaluated. He has some numbness to his left hand area due to getting a block for surgery. PSYCHIATRIC: He is alert and oriented. He appears to have normal judgment, insight, and memory. LABORATORY DATA: CBC shows a white blood cell count of 11.93, hemoglobin 10.5, hematocrit 33, and platelet count of 311. Chemistry shows sodium of 140, potassium 4.3, chloride 101, CO2 of 32, BUN 24, creatinine 1.1, and glucose of 90. IMAGING: No imaging on this admission. I reviewed the patient's care with Dr. Rene Michele of Infectious Disease. ASSESSMENT AND PLAN: 1. Left olecranon bursitis, status post incision, drainage, and bursectomy. His culture grew out methicillin-resistant Staphylococcus aureus. He is on vancomycin. Dr. Michele discussed with the patient and the family that the length of time will be determined, but it will be likely 2 to 4 weeks. 2. Acute on chronic hypoxemic and hypercapnic respiratory failure. Will continue his oral steroids and his inhalers. 3. Chronic obstructive pulmonary disease. He does not appear to be in acute exacerbation. Will continue his oxygen. He is steroid and chronic oxygen dependent. 4. Hyperlipidemia. Statin. 5. Anemia. This is chronic and stable. 6. Memory problems. Continue Namenda and Aricept. 7. Deep vein thrombosis prophylaxis. He is at high risk, so we will initiate low molecular weight heparin. ESTIMATED LENGTH OF STAY: I suspect he will require greater than a 2-midnight stay for treatment of his infection and close monitoring of his COPD. /[id number]/MODL MTDD
[2018-02-09] MEDS: LEVALBUTEROL 1.25 MG/3 ML DEYVIAL IH SCH ×2 (15:59→21:35)
[2018-02-09] MEDS: GABAPENTIN 300 MG CAP PO SCH ×2 (17:05→21:23)
[2018-02-09] MEDS ORDERED: PANTOPRAZOLE SODIUM 40 MG TAB PO ONE (17:23)
--- NOTE | 2018-02-09 20:08 | GOP ---
[f rep st] OPERATIVE REPORT PATIENT: CANDELARIA CHRISTOPHER DATE OF SERVICE: 02/09/18 PATIENT DATE OF : 1935 SURGEON: Leonel Clay M.D. [employer] SUPERVISOR: Marie Hernandez PA-C Mrs. Maldonado assistance was medically necessary for patient positioning and the safe retraction of vital structures. ANESTHESIA: General / regional anesthesia PREOPERATIVE DIAGNOSES: Left elbow septic olecranon bursitis (ICD-10 code M70.20 olecranon bursitis) POSTOPERATIVE DIAGNOSES: Left elbow septic olecranon bursitis (ICD-10 code M70.20 olecranon bursitis) OPERATIVE PROCEDURES: CPT code 37283 Left elbow olecranon bursa excision CPT code 47423 Debridement of muscle and fascia, first 20 square cm or less Modifier 47 -- Regional anesthesia by surgeon ESTIMATED BLOOD LOSS: 1cc COMPLICATIONS: None IMPLANTS: None BRIEF CLINICAL NOTE: This is a very pleasant 82 year old male with a significant history for left elbow septic olecranon bursitis. As such, I have discussed the risks, benefits, alternatives, and complications associated with both non-operative (specifically, observation, serial aspiration, antibiotics) and operative (specifically, left elbow olecranon bursa excision with irrigation and debridement) forms of treatment. The patient fully understands the risks, benefits, alternatives, and complications associated with both forms of treatment and wishes to proceed with operative intervention as outlined above. The patient has signed the informed consent form for surgery. OPERATIVE NOTE: On the day of surgery, all of the patients questions were answered. The patient was then transferred from the pre-operative area into the operating room and a formal, Time-Out procedure was performed. The patient was identified by name, medical record number, social security number, and date of . In addition, the patients left upper extremity was identified as the correct portion of the patients body for surgery with the patients left elbow being identified as the correct portion of that extremity for surgery. The anesthesia team administered pre-operative antibiotics for prophylaxis. The patient was then transferred from the preoperative gurney onto the operating room table and placed in the lateral decubitus position. The brachium was then padded with webril and a tourniquet was applied. The extremity was then prepped and draped in the normal sterile fashion. A sterile marking pen was then utilized to velvet out a curvilinear incision overlying the posterior aspect of the olecranon and along the subcutaneous border of the ulna curving radially around the tip of the olecranon process. Next, an Esmarch was then utilized to exsanguinate the upper extremity and the tourniquet was inflated to 250 mmHg. A #15 blade was then used to incise the skin. Meticulous hemostasis was obtained in the subcutaneous plane. Radial and ulnar full thickness skin flaps were then carefully elevated to expose the underlying olecranon bursa. The olecranon bursa was then excised en bloc and sent to the laboratory for microbiologic examination. The subcuanteous tissue, muscle and fascia were then sharply surgically debrided and copiously irrigated with sterile normal saline mixed with bacitracin and polymixin. The skin was re-approximated with 3 -0 nylon sutures. Betadine soaked gauze was applied to the incision followed by a dry sterile dressing and a compressive sunita wrap. Once the dressing was completely in place , the tourniquet was deflated. After complete deflation of the tourniquet all fingers and the thumb demonstrated brisk capillary refill. The patient was then reversed from anesthesia and transferred from the operating room table to the postoperative gurney and transferred from the operating room to the post anesthesia care in stable condition. POSTOPERATIVE PLAN: The patient will remain in the current dressing for the next three days. He will be admitted to the hospitalist service for intravenous antibiotics and infectious disease consultation. I will see the patient back in the office in three days at which point the original dressing will be removed and a photocopying equipment mechanic dry, sterile dressing will be applied. /[id number]/MODL MTDD
[2018-02-09] MEDS ORDERED: NON-FORMULARY NEW DRUG (Simvastatin [Zocor] 20 MG) PO SCH (21:00)
[2018-02-09] MEDS ORDERED: PRAMIPEXOLE 1 MG TAB PO SCH (21:00)
[2018-02-09] MEDS ORDERED: DONEPEZIL HCL 5 MG TAB PO SCH (21:00)
[2018-02-09] MEDS ORDERED: TAMSULOSIN HCL 0.4 MG CAP PO SCH (21:00)
[2018-02-09] MEDS ORDERED: ATORVASTATIN CALCIUM 10 MG TAB PO SCH (21:00)
[2018-02-09] MEDS: FLUTICASONE/SALMETER 500/50MCG DISKUS IH SCH (21:38)
[2018-02-10 05:33] LABS: PLATELET COUNT 335 10^3/uL (150-400)
[2018-02-10] MEDS ORDERED: ENOXAPARIN 40 MG/0.4 ML SYR SC SCH (09:00)
[2018-02-10] MEDS ORDERED: PANTOPRAZOLE SODIUM 40 MG TAB PO SCH (09:00)
[2018-02-10] MEDS ORDERED: VANCOMYCIN HCL/NORMAL SALINE 250 ML IV SCH (09:00)
[2018-02-10] MEDS ORDERED: ENOXAPARIN 30 MG/0.3 ML SYR SC SCH (09:00)
[2018-02-10] MEDS ORDERED: TIOTROPIUM INHALER 18 MCG/DOSE 5 DOSE/MDI IH SCH (09:00)
[2018-02-10] MEDS: predniSONE 5 MG TAB PO SCH (09:01)
[2018-02-10] MEDS: GABAPENTIN 300 MG CAP PO SCH ×2 (09:02→17:18)
[2018-02-10] MEDS: FLUTICASONE/SALMETER 500/50MCG DISKUS IH SCH (09:27)
[2018-02-10] MEDS: LEVALBUTEROL 1.25 MG/3 ML DEYVIAL IH SCH ×2 (09:27→16:48)
[2018-02-10] MEDS: MULTIVITAMINS 1 EACH TAB PO SCH (12:09)
[2018-02-10] MEDS: MEMANTINE HCL 5 MG TAB PO SCH (12:09)
--- NOTE | 2018-02-10 15:04 | PCMIDPN ---
Assessment/Plan: MRSA L septic bursitis. Ortho does not want to take down dressing until Thursday --infusion center tomorrow 10am vancomycin IV 1 more dose --Follow up w me 11:30 Thursday, likely plan doxycycline 100mg PO BID --add on CRP to labs CrCl 48 Meds vancomycin 1gm IV daily #2 Subjective: Patient strongly desires to go home. Much less left arm pain. Objective: Vital Signs Temp Pulse Resp BP Pulse Ox 36.5 C 74 16 101/55 L 95 02/10/18 11:51 02/10/18 11:51 02/10/18 11:51 02/10/18 11:51 02/10/18 11:51 Microbiology 02/09/18 08:14 Gram Stain - Final Elbow - Eswab 02/09/18 08:14 Gram Stain - Final Elbow - Tissue Laboratory Results 02/10/18 05:00 02/10/18 05:00 02/09/18 02/10/18 02/11/18 05:59 05:59 05:59 Intake Total 2700 Output Total 1850 Balance 850 - Physical Exam General Appearance: alert, no apparent distress, thin Respiratory: No accessory muscle use Extremities: other (Dressing in place left upper extremity) Skin: other (Scattered ecchymosis, left face bruising), No rash Neuro/Psych: alert, normal mood/affect, oriented x 3 - Time Spent With Patient Time Spent with Patient: greater than 35 minutes (Care was coordinated with Dr. Melvin Estrella and Marie GASPAR) Time Spent with Patient: Greater than 35 minutes spent on this patients care, greater than 50% of time spent counseling, educating, and coordinating care regarding the above mentioned plan. ICD10 Worksheet Patient Problems: Problems Problem Status Onset Bronchitis Acute COPD exacerbation Acute Sciatica Acute
[2018-02-10 16:16] VITALS: BP 128/63
--- NOTE | 2018-02-10 16:48 | ASMTCMCOM ---
CM Note CM Note Notes: Pt in for L olecranon bursitis. Pt requires one more dose of vancomycin IV, will go to [facility] infusion center tomorrow at 10am for this. Pt will also follow up Thursday with ID. Pt medically stable for d/c with support and infusion at [facility] tomorrow. Date Signed: 02/10/2018 04:47 PM Electronically Signed By:JUAQUIN Julien
--- NOTE | 2018-02-10 16:51 | PDDCSUM ---
Discharge Summary Discharge Summary: This is a 82 yo male with hx of COPD, chronic resp failure, who was admitted with Olecranon bursitis of Left Elbow. He is on POD #1 of left elbow I&D and bursectomy. Cultures have grown MRSA. He is currently on Vancomycin. ID is following. He is requesting discharge. I saw this pt in conjunction with Dr. Quinn. We gave him the option of staying another night and getting another dose of IV Vancomycin tomorrow and then discharge vs d/c today and f/u at the infusion center tomorrow. Ultimately he chose the latter. After his infusion, he will likely be transitioned to Doxycycline. He and his are in agreement that he is at his baseline strength and coordination. Neither he nor she believe he is a fall risk. 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 No new meds were started He will f/u with Ortho per their arrangement DDX: -Left Elbow olecranon bursitis -COPD -Chronic resp failure -HLD -GERD Exam: NAD AAOX3 RRR DECREASED BS S/NT/ND NO LE EDEMA LEFT ELBOW: DRESSING IN PLACE, DID NOT REMOVE MEDS: SEE MED LIST F/U: PER ABOVE. WILL GO TO INFUSION CENTER TOMORROW. TOTAL TIME SPENT ON D/C IS 35 MINS. D/W THE PT, HIS , NURSING, ID.
--- NOTE | 2018-02-11 10:12 | ASDISCHSUM ---
Discharge Information Plan Status:IV ABX/Infusion Medically Cleared to Leave: Discharge Date:02/10/2018 05:36 PM CM D/C Disposition: ADT D/C Disposition:[id number] Projected Discharge Date:02/12/2018 11:00 AM Transportation at D/C:Family Discharge Delay Reason: Follow-Up Date:02/12/2018 11:00 AM Discharge Slot: Final Diagnosis: Placement Information Referral Type:Home Infusion Referral ID:[id number] Provider Name: Address 1: Phone Number: Address 2: Fax Number: City: Selection Factors: State: Patient Contact Information Contact Name:KAUSHIKCRISPEREZNESHA Relationship: Address:[address] City:[facility] Phone: [facility]/Zip Code:[place] [address] Email: Financial Information Financial Class:Medicare Advantage Plans Primary Plan Desc:[facility] [employer] PLANS Primary Plan Number:[id number] Secondary Plan Desc: Secondary Plan Number: Assessment Information [facility] CM Progress Note CM Note CM Note Notes: Pt in for L olecranon bursitis. Pt requires one more dose of vancomycin IV, will go to infusion center tomorrow at 10am for this. Pt will also follow up Thursday with ID. Pt medically stable for d/c with support and infusion at tomorrow. Date Signed: 02/10/2018 04:47 PM Electronically Signed By:JUAQUIN Julien Intervention Information
== END 2018-02-10 17:36 | disposition home health service (06) | DRG 501 ==
LOC: F3N 05:47 → PREOBSVTOIN 09:52 → F3N 10:08 → EDSTATUS 13:30
PROVIDERS: ADMIT Orthopaedic Surgery Hand Surgery; ATTEND Orthopaedic Surgery Hand Surgery
PROC: 0MT40ZZ Resection of Left Elbow Bursa and Ligament, Open Approach (ICD-10-PCS; principal; 2018-02-09 07:15)
PROC: 0KB80ZZ Excision of Left Upper Arm Muscle, Open Approach (ICD-10-PCS; principal; 2018-02-09 07:15)
DX: M70.22 Olecranon bursitis, left elbow (principal); B95.62 Methicillin resistant Staphylococcus aureus infection as the cause of diseases classified elsewhere; J44.9 Chronic obstructive pulmonary disease, unspecified; J96.10 Chronic respiratory failure, unspecified whether with hypoxia or hypercapnia; E78.5 Hyperlipidemia, unspecified; K21.9 Gastro-esophageal reflux disease without esophagitis; G25.81 Restless legs syndrome; Z91.81 History of falling; Z99.81 Dependence on supplemental oxygen; Z79.52 Long term (current) use of systemic steroids; Z87.891 Personal history of nicotine dependence
CPT/HCPCS: J1100; J1650; J2704; J3010; J3370; J7512

== ENCOUNTER 2018-03-21 12:58 | Emergency (ER) | payer OTHER ==
--- NOTE | 2018-03-21 13:20 | EDPHY ---
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 Denies paresthesia distally.] Denies motor deficit. Tetanus is up-to-date. PHYSICAL EXAM (Prior to examination, patient consented to physical exam, hands were washed and my usual and customary physical exam procedures followed) 1) GENERAL: Well-developed, well-nourished, alert and oriented. Appears to be in no acute distress. 2) HEAD: Normocephalic 3) HEENT: sclera anicteric 4) LUNGS: Breathing comfortably. 5) SKIN: 4 cm laceration. 6) MUSCULOSKELETAL: Left distal 3rd ulna 4 cm laceration with visible ulna, extensive debris . Extensor carpi ulnaris is lacerated. 7) NEUROLOGIC: Full sensation distally. Smoking Status: Former smoker Constitutional: Initial Vital Signs Temperature (C) 37.0 C 03/21/18 13:02 Heart Rate 89 03/21/18 13:02 Respiratory Rate 18 03/21/18 13:02 Blood Pressure 142/97 H 03/21/18 13:02 O2 Sat (%) 91 L 03/21/18 13:02 O2 Delivery Mode Nasal Cannula O2 (L/minute) 2 Allergies/Adverse Reactions: lorazepam [From Ativan] Allergy (Mild, Verified 02/08/18 15:01) confusion, restless leg Home Medications: Medication Instructions Recorded Fluticasone Nasal [Flonase Nasal 1 sprays NASAL DAILY PRN 05/19/17 [place]] Fluticasone/Salmeter 500/50Mcg 1 puffs IH BID 05/19/17 [Advair 500/50 (*)] Gabapentin [Neurontin 300 MG (*)] 300 mg PO TID 05/19/17 Loratadine [Claritin] 10 mg PO DAILY 05/19/17 Memantine HCl [Namenda 10 mg] 10 mg PO BID@12,21 05/19/17 Multivitamins [Multivitamin (*)] 1 each PO DAILY@1200 05/19/17 Pramipexole Di-HCl [Mirapex 1 mg 1 mg PO HS 05/19/17 (*)] Simvastatin [Zocor] 20 mg PO HS 05/19/17 Tamsulosin HCl [Flomax 0.4 MG (*)] 0.4 mg PO HS 05/19/17 Tiotropium Inhaler [Spiriva 1 inh IH DAILY 05/19/17 Inhaler (RX)] predniSONE 12.5 mg PO DAILY 05/19/17 Donepezil HCl [Aricept 5 MG (*)] 5 mg PO HS #0 12/23/17 Lansoprazole [Prevacid] 15 mg PO DAILY 12/31/17 Levalbuterol 1.25 mg [Xopenex 1.25 mg IH TID 12/31/17 1.25MG Neb (*)] Acetaminophen [Tylenol 325mg (*)] 325 mg PO DAILY PRN 02/09/18 Azithromycin 250 mg PO DAILY 02/09/18 Herbals/Supplements -Info Only 1 ea PO DAILY 02/09/18 Vancomycin 02/11/18 Cephalexin [Keflex] 500 mg PO TID 10 Days cap 03/21/18 Sulfamethox/Tmp 800/160 mg 1 tab PO BID@1000,2200 10 Days tab 03/21/18 [Bactrim Ds] MDM/Departure - MDM Imaging Results: Imaging Impressions Forearm X-Ray 03/21/18 13:40 Impression: 1. No definite fracture of the left radius or ulna. 2. Distal forearm laceration extending to the distal ulna cortex. Images reviewed myself Procedures: Procedure: Laceration repair. I consulted with Orthopedics prior to wound closure. I explained the indications, risks and benefits for both laceration repair and anesthetic administration. Verbal consent was obtained from the patient. The 5 cm laceration on the left distal forearm was anesthetized using 0.5% bupivicaine with epinephrine. After anesthetic administered the patient was observed for a period of time and had no apparent adverse effects. The wound was cleaned, prepped, draped in normal sterile fashion and explored to its base. No foreign body seen, no foreign bodies palpated. [There were deep structures involved. Tendon injury was identified. The skin margins were loosely reapproximated with a total of 4 simple interrupted 5 O Prolene sutures. The wound repair was complex. The procedure was performed by myself. Patient has been informed that scarring will occur, although efforts have been made to minimize this. Procedure: Splint A Velcro volar splint was applied by ER medical equipment technician. After application of the splint I returned and re-examined the patient. The splint was adequately immobilizing the joint and distal to the splint the patient's circulation and sensation were intact. Patient shows no signs of compartment syndrome. Was given orthopedic precautions. Medications Given: Discontinued Medications Cephalexin HCl (Keflex) 500 mg PO EDNOW ONE PRN Reason: Protocol Stop: 03/21/18 15:01 Last Admin: 03/21/18 15:12 Dose: 500 mg Trimethoprim/Sulfamethoxazole (Bactrim Ds) 1 ea PO EDNOW ONE PRN Reason: Protocol Stop: 03/21/18 15:01 Last Admin: 03/21/18 15:12 Dose: 1 ea ED Course/Re-evaluation: 2:40 p.m.: Phone consultation with on-call orthopedics Dr. Marek Mckeon as the patient is followed by Dr. Leonel Clay for prior history of septic olecranon bursitis of the same arm, now resolved. Patient appears to have lacerated the extensor carpi ulnaris with small amounts of debris in the wound. Plan will be loose wound closure of the wound edges, initiation of antibiotic therapy, follow up in the office tomorrow (Thursday) with Dr. Leonel Clay. Patient started on dual antibiotic therapy with Bactrim and Keflex. Usual and customary wound precautions provided. I saw this patient independently based on established practice protocols. Care of patient under supervision of secondary supervising physician Dr Drew Varma. - Depart Disposition: Home, Routine, Self-Care Clinical Impression: Laceration of left forearm Qualifiers: Encounter type: initial encounter Qualified Code(s): S51.812A - Laceration without foreign body of left forearm, initial encounter Condition: Good Instructions: Care For Your Stitches (ED), Laceration (ED) Additional Instructions: Return to the ER if you develop redness, swelling, discharge, warmth to the wound, red streaks going up your arm, or any other symptoms that concern you. Prescriptions: Cephalexin [Keflex] 500 mg PO TID 10 Days cap Sulfamethox/Tmp 800/160 mg [Bactrim Ds] 1 tab PO BID@1000,2200 10 Days tab Referrals: Leonel Clay MD [Medical Doctor] - 1 day without fail
[2018-03-21] MEDS ORDERED: SULFAMETHOX/TMP 800/160 MG 1 TAB PO ONE (15:00)
[2018-03-21] MEDS ORDERED: CEPHALEXIN 500 MG CAP PO ONE (15:00)
[2018-03-21 16:02] VITALS: BP 130/95
== END 2018-03-21 16:03 | disposition home or self-care (01) ==
PROC: 0HQEXZZ Repair Left Lower Arm Skin, External Approach (ICD-10-PCS; principal; 2018-03-21)
DX: S51.812A Laceration without foreign body of left forearm, initial encounter (principal); Z87.891 Personal history of nicotine dependence; W27.4XXA Contact with kitchen utensil, initial encounter
CPT/HCPCS: 12002; 73090; 99284; L3807

== ENCOUNTER → 2018-03-30 | Outpatient (CLI) | payer OTHER | LOC: FIMAGING 10:32 | PROVIDERS: ATTEND Internal Medicine Critical Care Medicine | DX: J44.9 Chronic obstructive pulmonary disease, unspecified (principal); R91.8 Other nonspecific abnormal finding of lung field ==

== ENCOUNTER → 2018-07-24 | Outpatient (CLI) | payer OTHER | LOC: FIMAGING 14:21 | PROVIDERS: ATTEND Physician Assistant Medical | DX: I67.82 Cerebral ischemia (principal); R25.1 Tremor, unspecified; R56.9 Unspecified convulsions ==

== ENCOUNTER → 2018-08-04 | Outpatient (CLI) | payer OTHER ==
--- NOTE | 2018-08-04 12:57 | CPEEG ---
DATE OF STUDY: 08/04/2018 INTERPRETATION: This EEG shows a mild degree of focal slowing over the right centro-parietal head regions. These findings will be consistent with a mild focal disturbance of cerebral function in these regions. There were no potentially epileptogenic abnormalities present during the awake or sleep recordings. REPORT: This EEG contains 10 Hz alpha activity to the posterior head regions. There was a mild degree of focal intermittent slowing composed of polymorphic theta activity over the right centro-parietal head regions. There was no abnormal epileptiform activation at rest, or during hyperventilation or photic stimulation. The patient became drowsy and intermittently fell asleep during the study. There was no abnormal epileptiform activation during drowsiness, sleep, or during times of arousal. /[id number]/MODL MTDD
== END ==
LOC: FCPNEURO 09:41
PROVIDERS: ATTEND Physician Assistant Medical
DX: R25.1 Tremor, unspecified (principal)